=== PATIENT | female | born 1995 | race Caucasian/White ===

== ENCOUNTER 2016-12-05 19:56 | Emergency (ER) | payer MEDICAID ==
--- NOTE | 2016-12-05 20:06 | EDM.PDOC ---
[id number]: UTI Time Seen by Provider: 12/05/16 20:05 Source of Information: Reports: Patient - History of Present Illness INITIAL COMMENTS - FREE TEXT/NARRATIVE: 20-year-old female with dysuria for the past 2 days, increased urinary frequency and now has developed some lower back discomfort. No fevers or chills , no nausea or vomiting. Onset: Gradual (Over the past 3 days) Severity: Mild Improves with: Reports: None Associated Symptoms: Reports: Other (Back pain is very low, no flank pain). Denies: Chest Pain, Cough, Fever/Chills, Nausea/Vomiting, Shortness of Breath right flank/ suprapubic Pain Score (Numeric/FACES): 7 - Related Data Allergies Allergy/AdvReac Type Severity Reaction Status Date / Time amoxicillin [Amoxicillin] Allergy Hives Verified 12/05/16 20:08 Home Meds: Home Meds Albuterol Sulfate [Albuterol Sulfate HFA] 2 puff INH ASDIRECTED PRN 02/05/14 [ History] Amitriptyline [Elavil] 12.5 mg PO BEDTIME 12/05/16 [History] Phenazopyridine HCl [Azo Urinary Pain Relief] 97.5 mg PO TID PRN 12/05/16 [ History] Past Medical History HEENT History: Reports: Other (See Below) Other HEENT History: bilateral ear tubes Respiratory History: Reports: Asthma Musculoskeletal History: Reports: Fracture Neurological History: Reports: Migraines - Infectious Disease History Infectious Disease History: Reports: Chicken Pox Social & Family History - Tobacco Use Smoking Status *Q: Never Smoker Second Hand Smoke Exposure: No - Alcohol Use Days Per Week of Alcohol Use: 0 - Recreational Drug Use Recreational Drug Use: No ED ROS GENERAL - Review of Systems Review Of Systems: See Below Constitutional: Denies: Fever, Chills HEENT: Reports: No Symptoms Respiratory: Reports: No Symptoms GI/Abdominal: Denies: Abdominal Pain, Nausea, Vomiting : Reports: Dysuria, Frequency Musculoskeletal: Reports: Back Pain Skin: Reports: No Symptoms ED EXAM, RENAL/ - Physical Exam Exam: See Below Exam Limited By: No Limitations General Appearance: Alert, No Apparent Distress Respiratory/Chest: No Respiratory Distress GI/Abdominal: Non-Tender Back Exam: Other (Some discomfort with palpation just above the SI joint on the left side). No: CVA Tenderness (R), CVA Tenderness (L) Neurological: Alert, Oriented Psychiatric: Normal Affect, Normal Mood Skin Exam: Warm, Dry Course - Vital Signs Last Recorded V/S: Last Vital Signs Temp 99.0 F 12/05/16 20:16 Pulse 122 H 12/05/16 20:16 Resp 18 12/05/16 20:16 BP 155/92 H 12/05/16 20:16 Pulse Ox 95 12/05/16 20:16 - Orders/Labs/Meds Orders: Active Orders 24 hr Category Date Time Status CULTURE URINE [RM] Stat Lab 12/05/16 20:34 Received Labs: Laboratory Tests 12/05/16 Range/Units 20:06 Urine Color [place] Urine Appearance Clear Urine pH 5.0 (4.5-8.0) Ur Specific [place] 1.030 (1.008-1.030) Urine Protein 500 H (NEGATIVE) mg/dL Urine Glucose (UA) Normal (NEGATIVE) mg/dL Urine Ketones Negative (NEGATIVE) mg/dL Urine Occult Blood Large (NEGATIVE) Urine Nitrite Positive H (NEGATIVE) Urine Bilirubin Large (NEGATIVE) Urine Urobilinogen >=12 H (NORMAL) mg/dL Ur Leukocyte Esterase Negative (NEGATIVE) Urine RBC 30-40 H (0-5) Urine WBC 75-100 H (0-5) Ur Epithelial Cells Moderate Amorphous Sediment Not seen Urine Bacteria Many Urine Mucus Not seen Urine Other - Re-Assessments/Exams Free Text/Narrative Re-Assessment/Exam: 12/05/16 20:32 UA was obtained and is markedly positive, positive nitrite, WBCs and bacteria are present. A culture was initiated and the patient will be placed on Macrodantin twice a day for at least 7 days, can return if not improving satisfactorily. Departure - Departure Time of Disposition: 20:46 Disposition: Home, Self-Care 01 Condition: Good Clinical Impression: UTI, Urinary tract infectious disease - Discharge Information Instructions: Urinary Tract Infection, Adult, [id number] Referrals: PCP,None [Primary Care Provider] - Forms: ED Department Discharge Care Plan Goals: Take antibiotic twice daily for at least 7 days. Recheck in 2-3 days of not improving and return sooner if worsening such as fever, increased pain or nausea and vomiting. - My Orders Last 24 Hours: My Active Orders 12/05/16 20:34 CULTURE URINE [RM] Stat - Assessment/Plan Last 24 Hours: My Active Orders 12/05/16 20:34 CULTURE URINE [RM] Stat
[2016-12-05 20:18] VITALS: BP 155/92
== END 2016-12-05 20:46 | disposition home or self-care (01) ==
LOC: JP.ED 19:56
DX: N39.0 Urinary tract infection, site not specified (principal); Z88.1 Allergy status to other antibiotic agents; Z79.899 Other long term (current) drug therapy
CPT/HCPCS: 81001; 87086; 87186; 99284

== ENCOUNTER 2017-06-09 22:00 | Emergency (ER) | payer MEDICAID ==
[2017-06-09 22:14] VITALS: BP 126/69
[2017-06-09] MEDS ORDERED: Acetaminophen 500 MG Tab PO ONE (22:30)
--- NOTE | 2017-06-09 22:32 | EDM.PDOC ---
ED HPI GENERAL MEDICAL PROBLEM - General Chief Complaint: Respiratory Problem Stated Complaint: COLD Time Seen by Provider: 06/09/17 22:15 Source of Information: Reports: Patient History Limitations: Reports: No Limitations - History of Present Illness INITIAL COMMENTS - FREE TEXT/NARRATIVE: pt has a high temp and has a tachycardia. She has been sick for the past 2 days. She is coughing. 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: Musculoskeletal History: Reports: Fracture Neurological History: Reports: Migraines Hematologic History: Reports: None Immunologic History: Reports: None - Infectious Disease History Infectious Disease History: Reports: Chicken Pox - Past Surgical History Female Surgical History: Reports: Section Musculoskeletal Surgical History: Reports: Other (See Below) Other Musculoskeletal Surgeries/Procedures:: right elbow surgery Social & Family History - Tobacco Use Smoking Status *Q: Never Smoker Second Hand Smoke Exposure: No - Caffeine Use Caffeine Use: Reports: None - Alcohol Use Days Per Week of Alcohol Use: 0 - Recreational Drug Use Recreational Drug Use: No ED ROS GENERAL - Review of Systems Review Of Systems: See Below Constitutional: Reports: Fever, Chills, Malaise, Diaphoresis HEENT: Reports: Throat Pain, Throat Swelling Respiratory: Reports: Cough, Other ( cough raising yellow sputum) Cardiovascular: Reports: No Symptoms Endocrine: Reports: No Symptoms GI/Abdominal: Reports: No Symptoms : Reports: No Symptoms Musculoskeletal: Reports: No Symptoms Skin: Reports: Other (pt has a rash on her chest. She is vert flushed on the cheeks. ) ED EXAM, GENERAL - Physical Exam Exam: See Below Free Text/Narrative:: pt arrived with a fever of 101. She took her last tylenol about 4 pm. She has a sore throat and a cough. Exam Limited By: No Limitations General Appearance: Alert, Anxious, Moderate Distress Ears: Normal TMs Nose: Normal Inspection Throat/Mouth: Other ( throat is red with exudate. ) Neck: Normal Inspection Respiratory/Chest: No Respiratory Distress, Rhonchi Cardiovascular: Regular Rate, Rhythm, Tachycardia GI/Abdominal: Soft, Non-Tender (Female) Exam: Deferred Back Exam: Normal Inspection Extremities: Normal Inspection Psychiatric: Normal Affect Skin Exam: Other ( there is a red rah on her ches. ) Course - Vital Signs Last Recorded V/S: Last Vital Signs Temp 38.4 C H 06/09/17 23:09 Pulse 117 H 06/09/17 22:23 Resp 18 06/09/17 22:23 BP 126/69 06/09/17 22:23 Pulse Ox 96 06/09/17 22:23 - Orders/Labs/Meds Orders: Active Orders 24 hr Category Date Time Status Chest 2V [CR] Stat Exams 06/09/17 22:38 Taken Labs: Laboratory Tests 06/09/17 06/09/17 Range/Units 22:29 22:39 WBC 12.6 H (4.5-11.0) K/uL RBC 4.61 (3.30-5.50) M/uL Hgb 12.4 (12.0-15.0) g/dL Hct 36.3 (36.0-48.0) % MCV 79 L (80-98) fL MCH 27 (27-31) pg MCHC 34 (32-36) % Plt Count 199 (150-400) K/uL Neut % (Auto) 78 H (36-66) % Lymph % (Auto) 14 L (24-44) % [place] % (Auto) 7 H (2-6) % Eos % (Auto) 1 L (2-4) % Baso % (Auto) 0 (0-1) % Urine HCG, Qual Negative Meds: Medications Discontinued Medications Generic Name Dose Route Start Last Admin Trade Name Freq PRN Reason Stop Dose Admin Acetaminophen 1,000 mg 06/09/17 22:30 06/09/17 22:36 Tylenol Extra Strength PO 06/09/17 22:31 1,000 mg ONETIME ONE Administration Ceftriaxone Sodium 1 gm/ 0 gm 06/09/17 23:13 Lidocaine HCl 2.1 ml IM 06/09/17 23:14 ONETIME ONE - Re-Assessments/Exams Free Text/Narrative Re-Assessment/Exam: 06/09/17 23:10 wbc is 12,000. Her strept is positive. chest xray does not reveal a infiltrate. Departure - Departure Time of Disposition: 23:11 Disposition: Home, Self-Care 01 Condition: Fair Clinical Impression: Streptococcal pharyngitis - Discharge Information Referrals: PCP,None [Primary Care Provider] - Forms: ED Department Discharge Care Plan Goals: push fluids, tylenol and motrin alternating for fever. and body aches. Cool mist humidifier, zithromax 250 daily for 8 days robitussin ac 2 tsp q6h prn for cough. - My Orders Last 24 Hours: My Active Orders 06/09/17 22:38 Chest 2V [CR] Stat - Assessment/Plan Last 24 Hours: My Active Orders 06/09/17 22:38 Chest 2V [CR] Stat
[2017-06-09] MEDS ORDERED: cefTRIAXone 1 GM, Lidocaine 1% 2.1 ML IM ONE ×2 (23:13)
--- NOTE | 2017-06-11 10:05 | CR ---
Chest 2V HISTORY: Shortness of breath, cough COMPARISON: 05/18/2008 FINDINGS: Cardiac size is normal. No focal infiltrates or effusions. No pneumothorax. Impression: Negative chest.
== END 2017-06-09 23:41 | disposition home or self-care (01) ==
LOC: JP.ED 22:00
DX: J02.0 Streptococcal pharyngitis (principal); Z88.1 Allergy status to other antibiotic agents
CPT/HCPCS: 36415; 71046; 81025; 85025; 87430; 87804; 96372; 99284; A9270; J0696

== ENCOUNTER 2018-09-26 01:05 | Inpatient (IN) | payer MEDICAID ==
[2018-09-26] MEDS ORDERED: Sodium Chloride 0.9% 10 ML Syringe FLUSH PRN (01:56)
[2018-09-26] MEDS ORDERED: fentaNYL 100 MCG/2 ML SDV IVPUSH ONE ×3 (01:59→05:24)
[2018-09-26] MEDS ORDERED: Ondansetron 4 MG/2 ML SDV IVPUSH ONE (01:59)
[2018-09-26] MEDS ORDERED: Lactated Ringers 1,000 ML IV SCH (02:00)
--- NOTE | 2018-09-26 02:00 | EDM.PDOC ---
ED HPI GENERAL MEDICAL PROBLEM - General Chief Complaint: Abdominal Pain Stated Complaint: ABD PAIN Time Seen by Provider: 09/26/18 01:52 Source of Information: Reports: Patient, RN Notes Reviewed History Limitations: Reports: No Limitations - History of Present Illness INITIAL COMMENTS - FREE TEXT/NARRATIVE: 22-year-old female presents to the emergency department day complaint of abdominal pain, she states the pain came on suddenly 8:00 last night she is very nauseated it is constant nature no shortness of breath chest pain no fevers she states she is not passing any gas no difficulties with urination and she has had a in the past umbilical area Pain Score (Numeric/FACES): 8 - Related Data Allergies Allergy/AdvReac Type Severity Reaction Status Date / Time amoxicillin [Amoxicillin] Allergy Hives Verified 09/26/18 02:11 Home Meds: Home Meds medroxyPROGESTERone Acetate [Depo-Provera] 150 mg IM ASDIRECTED 09/26/18 [ History] Past Medical History HEENT History: Reports: Other (See Below) Other HEENT History: bilateral ear tubes, hx of perforation Respiratory History: Reports: Asthma, Pneumonia, Recurrent [employer]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: Reports: 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 Neurological History: Reports: Migraines Immunologic History: Reports: None - Infectious Disease History Infectious Disease History: Reports: Chicken Pox - Past Surgical History Female Surgical History: Reports: Section Musculoskeletal Surgical History: Reports: Other (See Below) Other Musculoskeletal Surgeries/Procedures:: right elbow surgery Social & Family History - Caffeine Use Caffeine Use: Reports: None ED ROS GENERAL - Review of Systems Review Of Systems: See Below Constitutional: Denies: Fever, Chills HEENT: Reports: No Symptoms Respiratory: Reports: No Symptoms Cardiovascular: Reports: No Symptoms GI/Abdominal: Reports: Abdominal Pain, Nausea. Denies: Flatus : Reports: No Symptoms Musculoskeletal: Reports: No Symptoms Skin: Reports: No Symptoms Neurological: Reports: No Symptoms ED EXAM, GI/ABD - Physical Exam Exam: See Below Exam Limited By: No Limitations General Appearance: Alert, WD/WN, No Apparent Distress Respiratory/Chest: No Respiratory Distress, Lungs Clear, Normal Breath Sounds, No Accessory Muscle Use, Chest Non-Tender Cardiovascular: Regular Rate, Rhythm, No Murmur GI/Abdominal Exam: Soft, Guarding, Tender Back Exam: No: CVA Tenderness (R), CVA Tenderness (L) Extremities: Non-Tender, No Pedal Edema Course - Vital Signs Last Recorded V/S: Last Vital Signs Temp 96.6 F 09/26/18 04:01 Pulse 79 09/26/18 04:01 Resp 15 09/26/18 04:01 BP 142/79 H 09/26/18 04:01 Pulse Ox 100 09/26/18 04:01 - Orders/Labs/Meds Orders: Active Orders 24 hr Category Date Time Status Peripheral IV Care [RC] . DIRECTED Care 09/26/18 01:56 Active Lactated Ringers [Ringers, Lactated] 1,000 ml Med 09/26/18 02:00 Active IV ASDIRECTED Lactated Ringers [Ringers, Lactated] 1,000 ml Med 09/26/18 04:05 Ordered IV BOLUS Sodium Chloride 0.9% [Saline Flush] Med 09/26/18 01:56 Active 10 ml FLUSH ASDIRECTED PRN Peripheral IV Insertion Adult [OM.PC] Urgent Oth 09/26/18 01:56 Ordered Medication Orders Lactated Ringer's (Ringers, Lactated) 1,000 mls @ 999 mls/hr IV ASDIRECTED FATMATA Last Admin: 09/26/18 02:36 Dose: 999 mls/hr Lactated Ringer's (Ringers, Lactated) 1,000 mls @ 500 mls/hr IV BOLUS ONE Stop: 09/26/18 06:04 Last Infusion: 09/26/18 05:00 Dose: 500 mls/hr Infusion: 09/26/18 04:26 Dose: 200 mls/hr Admin: 09/26/18 04:25 Dose: 500 mls/hr Sodium Chloride (Saline Flush) 10 ml FLUSH ASDIRECTED PRN PRN Reason: Keep Vein Open Last Admin: 09/26/18 02:30 Dose: 10 ml Labs: Laboratory Tests 09/26/18 09/26/18 09/26/18 Range/Units 02:09 02:09 02:09 WBC 10.0 (4.5-11.0) K/uL RBC 4.84 (3.30-5.50) M/uL Hgb 13.0 (12.0-15.0) g/dL Hct 38.9 (36.0-48.0) % MCV 80 (80-98) fL MCH 27 (27-31) pg MCHC 33 (32-36) % Plt Count 260 (150-400) K/uL Neut % (Auto) 68 H (36-66) % Lymph % (Auto) 21 L (24-44) % [place] % (Auto) 8 H (2-6) % Eos % (Auto) 2 (2-4) % Baso % (Auto) 0 (0-1) % Sodium 141 (140-148) mmol/L Potassium 3.7 (3.6-5.2) mmol/L Chloride 105 (100-108) mmol/L Carbon Dioxide 25 (21-32) mmol/L Anion Gap 11.0 (5.0-14.0) mmol/L BUN 13 (7-18) mg/dL Creatinine 1.0 D (0.6-1.0) mg/dL Est Cr Clr Drug Dosing 76.20 mL/min Estimated GFR (MDRD) > 60 (>60) Glucose 118 H (74-106) mg/dL Lactic Acid 1.3 (0.4-2.0) mmol/L Calcium 8.5 (8.5-10.1) mg/dL Total Bilirubin 0.2 (0.2-1.0) mg/dL AST 19 (15-37) U/L ALT 31 (12-78) U/L Alkaline Phosphatase 66 (46-116) U/L Total Protein 7.0 (6.4-8.2) g/dL Albumin 3.2 L (3.4-5.0) g/dL Globulin 3.8 H (2.3-3.5) g/dL Albumin/Globulin Ratio 0.8 L (1.2-2.2) Lipase 103 (73-393) U/L Urine Color Urine Appearance Urine pH (4.5-8.0) Ur Specific [place] (1.008-1.030) Urine Protein (NEGATIVE) mg/dL Urine Glucose (UA) (NEGATIVE) mg/dL Urine Ketones (NEGATIVE) mg/dL Urine Occult Blood (NEGATIVE) Urine Nitrite (NEGATIVE) Urine Bilirubin (NEGATIVE) Urine Urobilinogen (NORMAL) mg/dL Ur Leukocyte Esterase (NEGATIVE) Urine RBC (0-5) Urine WBC (0-5) Ur Epithelial Cells Amorphous Sediment Urine Bacteria Urine Mucus Urine HCG, Qual 09/26/18 09/26/18 Range/Units 02:17 02:17 WBC (4.5-11.0) K/uL RBC (3.30-5.50) M/uL Hgb (12.0-15.0) g/dL Hct (36.0-48.0) % MCV (80-98) fL MCH (27-31) pg MCHC (32-36) % Plt Count (150-400) K/uL Neut % (Auto) (36-66) % Lymph % (Auto) (24-44) % [place] % (Auto) (2-6) % Eos % (Auto) (2-4) % Baso % (Auto) (0-1) % Sodium (140-148) mmol/L Potassium (3.6-5.2) mmol/L Chloride (100-108) mmol/L Carbon Dioxide (21-32) mmol/L Anion Gap (5.0-14.0) mmol/L BUN (7-18) mg/dL Creatinine (0.6-1.0) mg/dL Est Cr Clr Drug Dosing mL/min Estimated GFR (MDRD) (>60) Glucose (74-106) mg/dL Lactic Acid (0.4-2.0) mmol/L Calcium (8.5-10.1) mg/dL Total Bilirubin (0.2-1.0) mg/dL AST (15-37) U/L ALT (12-78) U/L Alkaline Phosphatase (46-116) U/L Total Protein (6.4-8.2) g/dL Albumin (3.4-5.0) g/dL Globulin (2.3-3.5) g/dL Albumin/Globulin Ratio (1.2-2.2) Lipase (73-393) U/L Urine Color Yellow Urine Appearance Cloudy Urine pH 6.0 (4.5-8.0) Ur Specific [place] 1.020 (1.008-1.030) Urine Protein Negative (NEGATIVE) mg/dL Urine Glucose (UA) Normal (NEGATIVE) mg/dL Urine Ketones Negative (NEGATIVE) mg/dL Urine Occult Blood Moderate (NEGATIVE) Urine Nitrite Negative (NEGATIVE) Urine Bilirubin Negative (NEGATIVE) Urine Urobilinogen Normal (NORMAL) mg/dL Ur Leukocyte Esterase Large (NEGATIVE) Urine RBC 10-20 H (0-5) Urine WBC 30-40 H (0-5) Ur Epithelial Cells Moderate Amorphous Sediment Not seen Urine Bacteria Moderate Urine Mucus Moderate Urine HCG, Qual Negative Meds: Medications Generic Name Dose Route Start Last Admin Trade Name Freq PRN Reason Stop Dose Admin Lactated Ringer's 1,000 mls @ 999 mls/hr 09/26/18 02:00 09/26/18 02:36 Ringers, Lactated IV 999 mls/hr ASDIRECTED FATMATA Administration Lactated Ringer's 1,000 mls @ 500 mls/hr 09/26/18 04:05 09/26/18 05:00 Ringers, Lactated IV 09/26/18 06:04 500 mls/hr BOLUS ONE Infusion Sodium Chloride 10 ml 09/26/18 01:56 09/26/18 02:30 Saline Flush FLUSH 10 ml ASDIRECTED PRN Administration Keep Vein Open Discontinued Medications Generic Name Dose Route Start Last Admin Trade Name Freq PRN Reason Stop Dose Admin Fentanyl 50 mcg 09/26/18 01:59 09/26/18 02:30 Sublimaze IVPUSH 09/26/18 02:00 50 mcg ONETIME ONE Administration Fentanyl 50 mcg 09/26/18 03:51 09/26/18 03:58 Sublimaze IVPUSH 09/26/18 03:52 50 mcg ONETIME ONE Administration Sodium Chloride 85 mls @ 3.5 mls/sec 09/26/18 02:53 09/26/18 03:04 Normal Saline IV 09/26/18 02:54 3.5 mls/sec ASDIRECTED STA Administration Cefoxitin Sodium 1 gm/ Sodium 50 mls @ 100 mls/hr 09/26/18 03:59 09/26/18 04: 26 Chloride IV 09/26/18 04:28 100 mls/hr ONETIME ONE Administration Iopamidol 150 ml 09/26/18 02:53 09/26/18 03:04 Isovue-300 (61%) IV 09/26/18 02:54 150 ml . DIRECTED STA Administration Ondansetron HCl 4 mg 09/26/18 01:59 09/26/18 02:26 Zofran IVPUSH 09/26/18 02:00 4 mg ONETIME ONE Administration Departure - Departure Time of Disposition: 05:14 Disposition: Refer to Observation Condition: Good Clinical Impression: Appendicitis Qualifiers: Appendicitis type: acute appendicitis Acute appendicitis type: with localized peritonitis Appendicitis gangrene presence: unspecified whether gangrene present Appendicitis perforation presence: without perforation Appendicitis abscess presence: without abscess Qualified Code(s): K35.30 - Acute appendicitis with localized peritonitis, without perforation or gangrene - Discharge Information Referrals: PCP,None [Primary Care Provider] - Forms: ED Department Discharge - My Orders Last 24 Hours: My Active Orders 09/26/18 01:56 Peripheral IV Care [RC] . DIRECTED Sodium Chloride 0.9% [Saline Flush] 10 ml FLUSH ASDIRECTED PRN Peripheral IV Insertion Adult [OM.PC] Urgent 09/26/18 02:00 Lactated Ringers [Ringers, Lactated] 1,000 ml IV ASDIRECTED 09/26/18 04:05 Lactated Ringers [Ringers, Lactated] 1,000 ml IV BOLUS - Assessment/Plan Last 24 Hours: My Active Orders 09/26/18 01:56 Peripheral IV Care [RC] . DIRECTED Sodium Chloride 0.9% [Saline Flush] 10 ml FLUSH ASDIRECTED PRN Peripheral IV Insertion Adult [OM.PC] Urgent 09/26/18 02:00 Lactated Ringers [Ringers, Lactated] 1,000 ml IV ASDIRECTED 09/26/18 04:05 Lactated Ringers [Ringers, Lactated] 1,000 ml IV BOLUS Plan: Assessment Acuity = acute Site and laterality = acute appendicitis Etiology = unknown etiology Manifestations = abdominal pain, nausea Location of injury = Home Lab values = CBC and CMP unremarkable urinalysis does demonstrate tender 20 rbc' s consistent hematuria and 30-40 wbc's consists of pyuria cultures pending CT scan demonstrates an enlarged appendix is without periappendical inflammation equivocal to an acute appendicitis Plan Called discussed case with Dr. Ball at 5 AM he kindly agreed to come to the emergency department and evaluate the patient for further evaluation she's been given 1 g of Mefoxin thus far This note was dictated using [employer] voice recognition software please call with any questions on syntax or grammar.
[2018-09-26] MEDS: Iopamidol 612 MG/ML 150 ML Bottle IV STA (03:04)
--- NOTE | 2018-09-26 03:46 | CRLCT ---
INDICATION: Suprapubic pain TECHNIQUE: CT abdomen and pelvis acquired with 150 cc Isovue-300 intravenous contrast. COMPARISON: Abdomen and pelvis CT 03/10/2014 FINDINGS: Lower chest: Unremarkable. Liver: Unremarkable. Normal in size and attenuation. No masses. Gallbladder and bile ducts: Unremarkable. No stones or inflammation. No biliary dilatation. Pancreas: Unremarkable. No mass or inflammation. Spleen: Unremarkable. Normal in size. No masses. Adrenal glands: Unremarkable. No nodules. Kidneys: Unremarkable. No masses, stones, or hydronephrosis. GI tract: The stomach is unremarkable. There are no dilated loops of large or small intestine. The appendix is mildly dilated at its tip with fluid in its lumen measuring up to 9 millimeters (2, 111; 3, 50; 4, 73). No definite periappendiceal inflammation. Vasculature: Unremarkable. Pelvis: Unremarkable. Bones: Unremarkable for age. IMPRESSION: 1. Mild dilation of the appendiceal tip measures up to 9 millimeters although without definite periappendiceal inflammation. This is considered equivocal for acute appendicitis. 2. Remainder of the abdomen and pelvis are within normal limits. Please note that all CT scans at this facility use dose modulation, iterative reconstruction, and/or weight-based dosing when appropriate to reduce radiation dose to as low as reasonably achievable. Dictated by Jorge Patino MD @ Sep 26 2018 3:38AM Signed by Dr. Jorge Patino @ Sep 26 2018 3:45AM
[2018-09-26] MEDS ORDERED: Lactated Ringers 1,000 ML IV ONE (04:05)
[2018-09-26] MEDS ORDERED: Prochlorperazine 10 MG/2 ML SDV IVPUSH ONE (05:24)
[2018-09-26] MEDS: Dextrose 5%-Lactated Ringers 1,000 ML IV SCH ×3 (07:15→19:37)
[2018-09-26] MEDS ORDERED: Ondansetron 4 MG/2 ML SDV IVPUSH PRN ×2 (07:51→17:27)
[2018-09-26] MEDS: HYDROmorphone 1 MG/ML Syringe IV PRN ×3 (07:58→23:26)
[2018-09-26] MEDS ORDERED: Rocuronium 50 MG/5 ML Vial ONE (08:25)
[2018-09-26] MEDS ORDERED: Neostigmine Methylsulfate 1 MG/ML 5 ML Syringe ONE (08:25)
[2018-09-26] MEDS ORDERED: Glycopyrrolate 0.2 MG/ML 5 ML MDV ONE (08:25)
[2018-09-26] MEDS ORDERED: Dexamethasone 4 MG/ML SDV ONE (08:25)
[2018-09-26] MEDS ORDERED: fentaNYL 250 MCG/5 ML SDV ONE (08:25)
[2018-09-26] MEDS ORDERED: Succinylcholine 200 MG/10 ML MDV ONE (08:25)
[2018-09-26] MEDS ORDERED: Ondansetron 4 MG/2 ML SDV ONE (08:25)
[2018-09-26] MEDS ORDERED: Propofol 200 MG/20 ML SDV ONE (08:25)
[2018-09-26] MEDS ORDERED: Aztreonam/Dextrose-Water 1 GM in Premix Bag 1 BAG IV ONE (08:30)
[2018-09-26] MEDS ORDERED: Ropivacaine 55 ML, Dexamethasone 8 MG, EPINEPHrine 0.4 MG, Sodium Chloride 0.9% 22.6 ML NERVRT SCH ×4 (11:00)
[2018-09-26] MEDS ORDERED: Bupivacaine 0.5%/EPINEPHrine 1:200,000 50 ML MDV ONE ×2 (12:48→14:30)
[2018-09-26] MEDS: cefOXitin 2 GM in Sodium Chloride 0.9% 50 ML IV ONE ×3 (13:16→17:49)
[2018-09-26] MEDS ORDERED: Acetaminophen 500 MG Tab PO SCH (18:00)
[2018-09-26] MEDS: Ibuprofen 600 MG Tab PO SCH ×2 (18:39→23:29)
[2018-09-26] MEDS: Acetaminophen 500 MG Tab PO SCH ×2 (18:40→21:04)
[2018-09-26] MEDS: Pantoprazole 40 MG Vial IV SCH (18:40)
[2018-09-26] MEDS: cefOXitin 2 GM in Sodium Chloride 0.9% 50 ML IV SCH (22:36)
[2018-09-27] MEDS: cefOXitin 2 GM in Sodium Chloride 0.9% 50 ML IV SCH ×4 (04:06→21:35)
[2018-09-27] MEDS: Dextrose 5%-Lactated Ringers 1,000 ML IV SCH ×2 (04:09→14:29)
[2018-09-27] MEDS: HYDROmorphone 1 MG/ML Syringe IV PRN (04:22)
[2018-09-27] MEDS: Ibuprofen 600 MG Tab PO SCH ×4 (05:49→23:55)
[2018-09-27] MEDS: Acetaminophen 500 MG Tab PO SCH (05:49)
[2018-09-27] MEDS ORDERED: Ondansetron 4 MG Tab.DIS PO PRN (08:39)
[2018-09-27] MEDS: Acetaminophen/HYDROcodone 325-5 MG Tab PO PRN ×4 (09:46→22:35)
--- NOTE | 2018-09-27 11:25 | PCM.SURGPN ---
- General Info Date of Service: 09/27/18 Date of Surgery/Procedure: 09/26/18 POD#: 1 Functional Status: Reports: Pain Controlled, Ambulating, Incentive Spirometry - Review of Systems General: Reports: No Symptoms HEENT: Reports: No Symptoms Pulmonary: Reports: No Symptoms Cardiovascular: Reports: No Symptoms Gastrointestinal: Reports: Abdominal Pain, Other (sore throat) Genitourinary: Reports: No Symptoms Musculoskeletal: Reports: No Symptoms Skin: Reports: No Symptoms Neurological: Reports: No Symptoms Psychiatric: Reports: No Symptoms Systems Review Comment:: Barbara Recio is a 22 year old female who is postoperative day #1. She states she is doing well and her pain is well controlled. She has been ambulating. Vital signs are stable. Urine culture showed mixed gregoria. Dressings are dry and intact. She is healing well. - Patient Data Vitals - Most Recent: Last Vital Signs Temp 36.4 C 09/27/18 07:13 Pulse 82 09/27/18 07:13 Resp 16 09/27/18 07:13 BP 107/53 L 09/27/18 07:13 Pulse Ox 95 09/27/18 07:41 Weight - Most Recent: 107.955 kg I&O - Last 24 Hours: Intake & Output 09/26/18 09/27/18 09/27/18 22:59 06:59 14:59 Intake Total 20140 50 Output Total 1999 650 Balance 1815 -990 -600 Tommy Results Last 24 Hrs: Microbiology 09/26/18 05:17 Urine Culture - Preliminary Urine, Clean Catch MIXED GREGORIA DAY 1 Med Orders - Current: Current Medications Hydrocodone Bitart/Acetaminophen ([place] 325-5 Mg) 1 - 2 tab PO Q4H PRN PRN Reason: Pain Last Admin: 09/27/18 09:46 Dose: 2 tab Cefoxitin Sodium 2 gm/ Sodium (Chloride) 50 mls @ 100 mls/hr IV Q6H FATMATA Last Admin: 09/27/18 09:46 Dose: 100 mls/hr Dextrose/Lactated Ringer's (Dextrose 5%-Lactated Ringers) 1,000 mls @ 100 mls/ hr IV ASDIRECTED FATMATA Ibuprofen (Motrin) 600 mg PO Q6H FATMATA Last Admin: 09/27/18 11:17 Dose: 600 mg Ondansetron HCl (Zofran) 4 mg IVPUSH Q4H PRN PRN Reason: Nausea Last Admin: 09/26/18 23:26 Dose: 4 mg Ondansetron HCl (Zofran Odt) 4 mg PO Q4H PRN PRN Reason: Nausea/Vomiting Pantoprazole Sodium (Protonix Iv) 40 mg IV Q24H [facility] Last Admin: 09/26/18 18:40 Dose: 40 mg Discontinued Medications Acetaminophen (Tylenol Extra Strength) 1,000 mg PO QID [facility] Last Admin: 09/27/18 05:49 Dose: 1,000 mg Bupivacaine HCl/Epinephrine Bitart (Marcaine 0.5%/Epinephrine 1:200,000) Confirm Administered Dose 50 ml .ROUTE .STK-MED ONE Stop: 09/26/18 12:49 Last Admin: 09/26/18 16:17 Dose: 20 ml Bupivacaine HCl/Epinephrine Bitart (Marcaine 0.5%/Epinephrine 1:200,000) Confirm Administered Dose 50 ml .ROUTE .STK-MED ONE Stop: 09/26/18 14:31 Ropivacaine 55 ml/Dexamethasone 8 mg/Epinephrine HCl 0.4 mg/ Sodium Chloride 22.6 ml 0 ml NERVRT ASDIRECTED [facility] Last Admin: 09/26/18 15:58 Dose: 80 syringe Dexamethasone (Dexamethasone) Confirm Administered Dose 4 mg .ROUTE .STK-MED ONE Stop: 09/26/18 08:26 Fentanyl (Sublimaze) 50 mcg IVPUSH ONETIME ONE Stop: 09/26/18 02:00 Last Admin: 09/26/18 02:30 Dose: 50 mcg Fentanyl (Sublimaze) 50 mcg IVPUSH ONETIME ONE Stop: 09/26/18 03:52 Last Admin: 09/26/18 03:58 Dose: 50 mcg Fentanyl (Sublimaze) 100 mcg IVPUSH ONETIME ONE Stop: 09/26/18 05:25 Last Admin: 09/26/18 05:41 Dose: 100 mcg Fentanyl (Sublimaze) Confirm Administered Dose 250 mcg .ROUTE .STK-MED ONE Stop: 09/26/18 08:26 Glycopyrrolate (Robinul) Confirm Administered Dose 1 mg .ROUTE .STK-MED ONE Stop: 09/26/18 08:26 Hydromorphone HCl (Dilaudid) 1 mg IV Q2H PRN PRN Reason: Pain Last Admin: 09/27/18 04:22 Dose: 1 mg Lactated Ringer's (Ringers, Lactated) 1,000 mls @ 999 mls/hr IV ASDIRECTED FATMATA Last Admin: 09/26/18 02:36 Dose: 999 mls/hr Sodium Chloride (Normal Saline) 85 mls @ 3.5 mls/sec IV ASDIRECTED STA Stop: 09/26/18 02:54 Last Admin: 09/26/18 03:04 Dose: 3.5 mls/sec Cefoxitin Sodium 1 gm/ Sodium (Chloride) 50 mls @ 100 mls/hr IV ONETIME ONE Stop: 09/26/18 04:28 Last Admin: 09/26/18 04:26 Dose: 100 mls/hr Lactated Ringer's (Ringers, Lactated) 1,000 mls @ 500 mls/hr IV BOLUS ONE Stop: 09/26/18 06:04 Last Infusion: 09/26/18 05:00 Dose: 500 mls/hr Dextrose/Lactated Ringer's (Dextrose 5%-Lactated Ringers) 1,000 mls @ 125 mls/ hr IV ASDIRECTED [facility] Last Admin: 09/26/18 15:18 Dose: 125 mls/hr Aztreonam/Dextrose 1 gm/ (Premix) 50 mls @ 100 mls/hr IV ONETIME ONE Stop: 09/26/18 08:59 Last Admin: 09/26/18 08:55 Dose: 100 mls/hr Cefoxitin Sodium 2 gm/ Sodium (Chloride) 50 mls @ 100 mls/hr IV ONCALL ONE Stop: 09/26/18 11:29 Last Admin: 09/26/18 17:49 Dose: Not Given Dextrose/Lactated Ringer's (Dextrose 5%-Lactated Ringers) 1,000 mls @ 150 mls/ hr IV ASDIRECTED [facility] Last Admin: 09/27/18 04:09 Dose: 150 mls/hr Iopamidol (Isovue-300 (61%)) 150 ml IV . DIRECTED STA Stop: 09/26/18 02:54 Last Admin: 09/26/18 03:04 Dose: 150 ml Neostigmine Methylsulfate (Neostigmine) Confirm Administered Dose 5 mg .ROUTE .STK-MED ONE Stop: 09/26/18 08:26 Ondansetron HCl (Zofran) 4 mg IVPUSH ONETIME ONE Stop: 09/26/18 02:00 Last Admin: 09/26/18 02:26 Dose: 4 mg Ondansetron HCl (Zofran) 4 mg IVPUSH Q4H PRN PRN Reason: Nausea/Vomiting Last Admin: 09/26/18 13:15 Dose: 4 mg Ondansetron HCl (Zofran) Confirm Administered Dose 4 mg .ROUTE .STK-MED ONE Stop: 09/26/18 08:26 Prochlorperazine Edisylate (Compazine) 5 mg IVPUSH ONETIME ONE Stop: 09/26/18 05:25 Last Admin: 09/26/18 05:38 Dose: 5 mg Propofol (Diprivan 20 Ml) Confirm Administered Dose 200 mg .ROUTE .STK-MED ONE Stop: 09/26/18 08:26 Rocuronium [place] (Zemuron) Confirm Administered Dose 50 mg .ROUTE .STK-MED ONE Stop: 09/26/18 08:26 Sodium Chloride (Saline Flush) 10 ml FLUSH ASDIRECTED PRN PRN Reason: Keep Vein Open Last Admin: 09/26/18 02:30 Dose: 10 ml Succinylcholine Chloride (Quelicin) Confirm Administered Dose 200 mg .ROUTE .STK -MED ONE Stop: 09/26/18 08:26 - Exam Wound/Incisions: Healing Well, Dressing Dry and Intact, No Drainage General: Alert, Oriented HEENT: Pupils Equal Neck: Supple Lungs: Clear to Auscultation, Normal Respiratory Effort Cardiovascular: Regular Rate, Regular Rhythm GI/Abdominal Exam: No Distention Extremities: Normal Inspection Skin: Warm, Dry Neurological: No New Focal Deficit Psy/Mental Status: Alert, Normal Affect - Problem List Review Problem List Initiated/Reviewed/Updated: Yes - My Orders Last 24 Hours: Active Orders 24 hr Category Date Time Status Ambulate [RC] ASDIRECTED Care 09/26/18 17:25 Active Pina Catheter Insertion [Insert Urinary Catheter] [OM. Care 09/26/18 17:30 Ordered PC] Q24H Head of Bed Elevation [RC] CONTINUOUS Care 09/26/18 17:25 Active Intake and Output [RC] QSHIFT Care 09/26/18 17:27 Active May Shower [RC] ASDIRECTED Care 09/27/18 08:48 Active Pneumonia Education [RC] UPON Care 09/26/18 17:25 Active RT Incentive Spirometry [RC] .PRN Care 09/26/18 17:25 Active Turn, Cough, Deep Breathe [RC] Q1HWA Care 09/26/18 17:25 Active Up to Chair [RC] TIDMEALS Care 09/26/18 17:25 Active Respiratory Care Assess and Treatment [CONS] Routine Cons 09/26/18 17:25 Active Full Liquid Diet [DIET] Diet 09/27/18 Breakfast Ordered Acetaminophen/HYDROcodone [[place] 325-5 MG] Med 09/27/18 10:00 Active 1 - 2 tab PO Q4H PRN Dextrose 5%-Lactated Ringers 1,000 ml Med 09/27/18 08:37 Active IV ASDIRECTED Ibuprofen [Motrin] Med 09/26/18 18:00 Active 600 mg PO Q6H Ondansetron [Zofran ODT] Med 09/27/18 08:39 Active 4 mg PO Q4H PRN Ondansetron [Zofran] Med 09/26/18 17:27 Active 4 mg IVPUSH Q4H PRN Pantoprazole [ProTONIX IV] Med 09/26/18 18:00 Active 40 mg IV Q24H cefOXitin [Mefoxin] 2 gm Med 09/26/18 22:00 Active Sodium Chloride 0.9% [Normal Saline] 50 ml IV Q6H Abdominal Binder [OM.PC] Routine Oth 09/26/18 17:26 Ordered Oral Care [OM.PC] BID Oth 09/26/18 17:30 Ordered Oral Care [OM.PC] BID Oth 09/27/18 17:30 Ordered SCD [Sequential Compression Device] [OM.PC] Routine Oth 09/26/18 17:25 Ordered Medication Orders Hydrocodone Bitart/Acetaminophen ([place] 325-5 Mg) 1 - 2 tab PO Q4H PRN PRN Reason: Pain Last Admin: 09/27/18 09:46 Dose: 2 tab Cefoxitin Sodium 2 gm/ Sodium (Chloride) 50 mls @ 100 mls/hr IV Q6H [facility] Last Admin: 09/27/18 09:46 Dose: 100 mls/hr Admin: 09/27/18 04:06 Dose: 100 mls/hr Admin: 09/26/18 22:36 Dose: 100 mls/hr Dextrose/Lactated Ringer's (Dextrose 5%-Lactated Ringers) 1,000 mls @ 100 mls/ hr IV ASDIRECTED [facility] Ibuprofen (Motrin) 600 mg PO Q6H [facility] Last Admin: 09/27/18 11:17 Dose: 600 mg Admin: 09/27/18 05:49 Dose: 600 mg Admin: 09/26/18 23:29 Dose: 600 mg Admin: 09/26/18 18:39 Dose: 600 mg Ondansetron HCl (Zofran) 4 mg IVPUSH Q4H PRN PRN Reason: Nausea Last Admin: 09/26/18 23:26 Dose: 4 mg Ondansetron HCl (Zofran Odt) 4 mg PO Q4H PRN PRN Reason: Nausea/Vomiting Pantoprazole Sodium (Protonix Iv) 40 mg IV Q24H [facility] Last Admin: 09/26/18 18:40 Dose: 40 mg - Assessment Assessment (Free Text/Narrative):: Acute Appendicitis Laparoscopic Appendectomy Procedure preformed on 09/26/18, surgeon Benton Ball MD - Plan Plan (Free Text/Narrative):: 1. Initiate full liquid diet 2. Initiate [place] 325-5 MG, 1-2 tablets PO, every 4 hours or as needed 3. Will recheck in the AM or PRN
[2018-09-27] MEDS: Pantoprazole 40 MG Vial IV SCH (17:05)
[2018-09-28] MEDS: Dextrose 5%-Lactated Ringers 1,000 ML IV SCH (02:05)
[2018-09-28] MEDS: cefOXitin 2 GM in Sodium Chloride 0.9% 50 ML IV SCH (03:01)
[2018-09-28] MEDS: Acetaminophen/HYDROcodone 325-5 MG Tab PO PRN ×2 (03:53→08:20)
[2018-09-28] MEDS: Ibuprofen 600 MG Tab PO SCH (05:19)
[2018-09-28] MEDS ORDERED: Magnesium Hydroxide 400 MG/5 ML Susp 30 ML Cup PO PRN (07:52)
[2018-09-28 08:10] VITALS: BP 114/62
--- NOTE | 2018-09-29 15:49 | OR ---
DATE OF PROCEDURE: 09/26/2018 PREOPERATIVE DIAGNOSIS: Acute appendicitis. POSTOPERATIVE DIAGNOSIS: Acute appendicitis. OPERATIVE PROCEDURE: Laparoscopic appendectomy (32420). ANESTHESIA: General. TOLL GATE KEEPER: JOCE Lora. INDICATION FOR PROCEDURE: A 22-year-old presenting with symptoms suggestive of appendicitis and CT confirmed a distended appendiceal tip. Plan is to proceed with diagnostic laparoscopy with appendectomy and other procedures as indicated. Potential risks including bleeding, infection, and leaks from various GI tract staple lines were reviewed, and the patient wishes to proceed. DETAILS OF PROCEDURE: The patient was taken to the operating room. After general endotracheal anesthesia was induced, a Pina catheter was inserted and the abdomen was prepped and draped. Three fingerbreadths superior to the left side of the umbilicus, a transverse incision was made and the peritoneal cavity entered under direct vision with an Optiview trocar inflated to 15 mmHg pressure of CO2. Laparoscope was then reinserted. No underlying trocar insertion site injuries were seen. Following this, a 12 mm trocar was placed in the right upper quadrant and left lower quadrant and the lower abdomen was examined. The appendix was easily visualized and the distal one-third visibly distended and edematous consistent with appendicitis at that level. The mesoappendix was then divided with Harmonic scalpel down to the level of the junction of the appendix and the cecum, and the appendix was then divided off with a WILL rea load flush with the cecum and delivered through the left lower quadrant trocar site. No perforation or abscess was noted associated with this appendicitis. The staple line appeared to be intact with no bleeding and otherwise no evident problems were noted. At this point, a drain was felt not to be necessary. Bilateral transversus abdominis plane blocks were then placed and the trocars removed. The peritoneal cavity was then deflated. The fascia of the 12 mm trocar sites was closed with 0 Vicryl stitch and skin with 4-0 Vicryl skin stitch. Dressing was applied. The patient was taken to the recovery room in satisfactory condition. There were no evident complications. Benton Ball MD /[id number]
--- NOTE | 2018-09-29 17:34 | DISCH ---
FINAL DIAGNOSIS: Acute appendicitis. SECONDARY DIAGNOSIS: Obesity. OPERATIVE PROCEDURE: Laparoscopic appendectomy that was done on 09/26/2018. SUMMARY: This is a 22-year-old presenting with clinical picture suggestive of acute appendicitis. CT scan showed an enlarged and inflamed appendix at its tip. The patient was admitted with IV antibiotics and subsequently underwent an otherwise fairly straightforward laparoscopic appendectomy. The gross appearance of the distal appendix was consistent with appendicitis. Postoperatively, the patient has done well. She is tolerating oral pain medication. This was not at all perforated, so at this point, no further antibiotics will be needed. She will be discharged home on a regular diet and [place] 5/325 one to two tabs q.4 hours p.r.n. pain, #40. She was instructed she can take ibuprofen 600 mg q.i.d. as well. We will also send her home with 2 doses of milk of magnesia to stimulate bowels. She will follow up with Karla Bella at [facility] on 10/04/2018 at 10 a.m.
== END 2018-09-28 09:45 | disposition home or self-care (01) | DRG 225 ==
LOC: JP.ED 01:05 → JP.2SS 05:58
PROVIDERS: ADMIT Surgery; ATTEND Surgery
PROC: 0DTJ4ZZ Resection of Appendix, Percutaneous Endoscopic Approach (ICD-10-PCS; principal; 2018-09-26)
DX: K35.80 Unspecified acute appendicitis (principal); Z88.1 Allergy status to other antibiotic agents; Z87.01 Personal history of pneumonia (recurrent)
CPT/HCPCS: 36415; 51702; 74177; 80053; 81001; 81025; 83605; 83690; 85025; 87086; 88302; 94762; 96361; 96365; 96375; 96376; 99285-25; A9270-GY; C9113; J0171; J0330; J0694; J0780; J1100; J1170; J2405; J2704; J2710; J2795; J3010; J3490; J7030; J7042; J7050; J7120

== ENCOUNTER 2018-12-04 14:02 | Emergency (ER) | payer MEDICAID ==
[2018-12-04 14:13] VITALS: BP 126/81; PULSE 107
[2018-12-04] MEDS ORDERED: Sodium Chloride 0.9% 10 ML Syringe FLUSH PRN (14:21)
[2018-12-04] MEDS ORDERED: fentaNYL 100 MCG/2 ML SDV IVPUSH ONE (14:22)
[2018-12-04] MEDS ORDERED: Ondansetron 4 MG/2 ML SDV IVPUSH ONE (14:22)
--- NOTE | 2018-12-04 14:24 | EDM.PDOC ---
ED HPI GENERAL MEDICAL PROBLEM - General Chief Complaint: Abdominal Pain Stated Complaint: LEFT SIDE STOMACH Time Seen by Provider: 12/04/18 14:05 Source of Information: Reports: Patient, Family, RN Notes Reviewed History Limitations: Reports: No Limitations - History of Present Illness INITIAL COMMENTS - FREE TEXT/NARRATIVE: 22-year-old female presents emergency department today with complaint of left upper quadrant pain, she states the pain started about 2 hours ago after she had eaten lunch, she describes the pain is quite intense. Past surgical history does include appendectomy she feels nauseated no shortness of breath or chest pain - Related Data Allergies Allergy/AdvReac Type Severity Reaction Status Date / Time amoxicillin [Amoxicillin] Allergy Hives Verified 12/04/18 14:14 Home Meds: Home Meds medroxyPROGESTERone Acetate [Depo-Provera] 150 mg IM ASDIRECTED 09/26/18 [ History] Amitriptyline [Elavil] 50 mg PO BEDTIME 12/04/18 [History] lamoTRIgine [Lamotrigine] 25 mg PO BEDTIME 12/04/18 [History] Past Medical History HEENT History: Reports: Other (See Below) Other HEENT History: bilateral ear tubes, hx of perforation Cardiovascular History: Reports: Heart Murmur Respiratory History: Reports: Asthma, Pneumonia, Recurrent HOME THE[employer] EXP[employer] History: Reports: Musculoskeletal History: Reports: Fracture Neurological History: Reports: Migraines Psychiatric History: Reports: Depression Immunologic History: Reports: None - Infectious Disease History Infectious Disease History: Reports: Chicken Pox - Past Surgical History GI Surgical History: Reports: None Musculoskeletal Surgical History: Reports: Other (See Below) Other Musculoskeletal Surgeries/Procedures:: right elbow surgery Social & Family History - Tobacco Use Smoking Status *Q: Never Smoker - Caffeine Use Caffeine Use: Reports: None - Recreational Drug Use Recreational Drug Use: No ED ROS GENERAL - Review of Systems Review Of Systems: See Below Constitutional: Reports: No Symptoms HEENT: Reports: No Symptoms Respiratory: Reports: No Symptoms Cardiovascular: Reports: No Symptoms GI/Abdominal: Reports: Abdominal Pain, Flatus, Nausea. Denies: Constipation, Diarrhea, Vomiting : Reports: No Symptoms ED EXAM, GI/ABD - Physical Exam Exam: See Below Exam Limited By: No Limitations General Appearance: Alert, WD/WN, No Apparent Distress Respiratory/Chest: No Respiratory Distress, Lungs Clear, Normal Breath Sounds, No Accessory Muscle Use, Chest Non-Tender Cardiovascular: Regular Rate, Rhythm, No Murmur GI/Abdominal Exam: Normal Bowel Sounds, Soft, Tender (Left upper quadrant) Course - Vital Signs Last Recorded V/S: Last Vital Signs Temp 99.4 F 12/04/18 14:16 Pulse 107 H 12/04/18 14:16 Resp 20 12/04/18 14:16 BP 126/81 12/04/18 14:16 Pulse Ox 95 12/04/18 14:16 - Orders/Labs/Meds Orders: Active Orders 24 hr Category Date Time Status Peripheral IV Care [RC] . DIRECTED Care 12/04/18 14:22 Active Lactated Ringers [Ringers, Lactated] 1,000 ml Med 12/04/18 14:30 Active IV ASDIRECTED Sodium Chloride 0.9% [Saline Flush] Med 12/04/18 14:21 Active 10 ml FLUSH ASDIRECTED PRN Peripheral IV Insertion Adult [OM.PC] Urgent Oth 12/04/18 14:21 Ordered Medication Orders Lactated Ringer's (Ringers, Lactated) 1,000 mls @ 999 mls/hr IV ASDIRECTED [facility]MATA Last Admin: 12/04/18 14:35 Dose: 999 mls/hr Sodium Chloride (Saline Flush) 10 ml FLUSH ASDIRECTED PRN PRN Reason: Keep Vein Open Last Admin: 12/04/18 14:35 Dose: 10 ml Labs: Laboratory Tests 12/04/18 12/04/18 12/04/18 Range/Units 14:30 14:30 14:30 WBC 10.8 (4.5-11.0) K/uL RBC 5.24 (3.30-5.50) M/uL Hgb 14.1 (12.0-15.0) g/dL Hct 42.2 (36.0-48.0) % MCV 81 (80-98) fL MCH 27 (27-31) pg MCHC 33 (32-36) % Plt Count 272 (150-400) K/uL Neut % (Auto) 73 H (36-66) % Lymph % (Auto) 16 L (24-44) % [place]oyah % (Auto) 8 H (2-6) % Eos % (Auto) 2 (2-4) % Baso % (Auto) 0 (0-1) % Sodium 140 (140-148) mmol/L Potassium 3.6 (3.6-5.2) mmol/L Chloride 105 (100-108) mmol/L Carbon Dioxide 27 (21-32) mmol/L Anion Gap 8.2 (5.0-14.0) mmol/L BUN 7 (7-18) mg/dL Creatinine 1.0 (0.6-1.0) mg/dL Est Cr Clr Drug Dosing 76.20 mL/min Estimated GFR (MDRD) > 60 (>60) Glucose 91 (74-106) mg/dL Lactic Acid 1.7 (0.4-2.0) mmol/L Calcium 8.8 (8.5-10.1) mg/dL Total Bilirubin 0.7 D (0.2-1.0) mg/dL AST 23 (15-37) U/L ALT 53 (12-78) U/L Alkaline Phosphatase 71 (46-116) U/L Total Protein 7.6 (6.4-8.2) g/dL Albumin 3.5 (3.4-5.0) g/dL Globulin 4.1 H (2.3-3.5) g/dL Albumin/Globulin Ratio 0.9 L (1.2-2.2) Lipase 84 (73-393) U/L Urine Color Urine Appearance Urine pH (4.5-8.0) Ur Specific C[place] (1.008-1.030) Urine Protein (NEGATIVE) mg/dL Urine Glucose (UA) (NEGATIVE) mg/dL Urine Ketones (NEGATIVE) mg/dL Urine Occult Blood (NEGATIVE) Urine Nitrite (NEGATIVE) Urine Bilirubin (NEGATIVE) Urine Urobilinogen (NORMAL) mg/dL Ur Leukocyte Esterase (NEGATIVE) Urine RBC (0-5) Urine WBC (0-5) Ur Epithelial Cells Amorphous Sediment Urine Bacteria Urine Mucus 12/04/18 Range/Units 15:29 WBC (4.5-11.0) K/uL RBC (3.30-5.50) M/uL Hgb (12.0-15.0) g/dL Hct (36.0-48.0) % MCV (80-98) fL MCH (27-31) pg MCHC (32-36) % Plt Count (150-400) K/uL Neut % (Auto) (36-66) % Lymph % (Auto) (24-44) % [place]oyah % (Auto) (2-6) % Eos % (Auto) (2-4) % Baso % (Auto) (0-1) % Sodium (140-148) mmol/L Potassium (3.6-5.2) mmol/L Chloride (100-108) mmol/L Carbon Dioxide (21-32) mmol/L Anion Gap (5.0-14.0) mmol/L BUN (7-18) mg/dL Creatinine (0.6-1.0) mg/dL Est Cr Clr Drug Dosing mL/min Estimated GFR (MDRD) (>60) Glucose (74-106) mg/dL Lactic Acid (0.4-2.0) mmol/L Calcium (8.5-10.1) mg/dL Total Bilirubin (0.2-1.0) mg/dL AST (15-37) U/L ALT (12-78) U/L Alkaline Phosphatase (46-116) U/L Total Protein (6.4-8.2) g/dL Albumin (3.4-5.0) g/dL Globulin (2.3-3.5) g/dL Albumin/Globulin Ratio (1.2-2.2) Lipase (73-393) U/L Urine Color Yellow Urine Appearance Cloudy Urine pH 5.0 (4.5-8.0) Ur Specific [place] 1.025 (1.008-1.030) Urine Protein Trace (NEGATIVE) mg/dL Urine Glucose (UA) Normal (NEGATIVE) mg/dL Urine Ketones Negative (NEGATIVE) mg/dL Urine Occult Blood Negative (NEGATIVE) Urine Nitrite Negative (NEGATIVE) Urine Bilirubin Small (NEGATIVE) Urine Urobilinogen Normal (NORMAL) mg/dL Ur Leukocyte Esterase Trace (NEGATIVE) Urine RBC 0-5 (0-5) Urine WBC 5-10 H (0-5) Ur Epithelial Cells Few Amorphous Sediment Not seen Urine Bacteria Moderate Urine Mucus Moderate Meds: Medications Generic Name Dose Route Start Last Admin Trade Name Freq PRN Reason Stop Dose Admin Lactated Ringer's 1,000 mls @ 999 mls/hr 12/04/18 14:30 12/04/18 14:35 Ringers, Lactated IV 999 mls/hr ASDIRECTED FATMATA Administration Sodium Chloride 10 ml 12/04/18 14:21 12/04/18 14:35 Saline Flush FLUSH 10 ml ASDIRECTED PRN Administration Keep Vein Open Discontinued Medications Generic Name Dose Route Start Last Admin Trade Name Zakia PRN Reason Stop Dose Admin Fentanyl 50 mcg 12/04/18 14:22 12/04/18 14:33 Sublimaze IVPUSH 12/04/18 14:23 50 mcg ONETIME ONE Administration Ketorolac Tromethamine 30 mg 12/04/18 16:30 12/04/18 16:38 Toradol IVPUSH 12/04/18 16:31 30 mg ONETIME ONE Administration Ondansetron HCl 4 mg 12/04/18 14:22 12/04/18 14:33 Zofran IVPUSH 12/04/18 14:23 4 mg ONETIME ONE Administration Simethicone 160 mg 12/04/18 16:30 12/04/18 16:38 Simethicone PO 12/04/18 16:31 160 mg ONETIME ONE Administration Departure - Departure Time of Disposition: 17:31 Disposition: Home, Self-Care 01 Condition: Fair Clinical Impression: Gas pain - Discharge Information Referrals: Eulalia Zepeda CNM [Primary Care Provider] - Forms: ED Department Discharge Additional Instructions: Continue to use simethicone As needed for abdominal pain, Please followup with your primary care provider in 3-5 days if not better, please call return to the emergency department with worsening of symptoms. - My Orders Last 24 Hours: My Active Orders 12/04/18 14:21 Sodium Chloride 0.9% [Saline Flush] 10 ml FLUSH ASDIRECTED PRN Peripheral IV Insertion Adult [OM.PC] Urgent 12/04/18 14:22 Peripheral IV Care [RC] . DIRECTED 12/04/18 14:30 Lactated Ringers [Ringers, Lactated] 1,000 ml IV ASDIRECTED - Assessment/Plan Last 24 Hours: My Active Orders 12/04/18 14:21 Sodium Chloride 0.9% [Saline Flush] 10 ml FLUSH ASDIRECTED PRN Peripheral IV Insertion Adult [OM.PC] Urgent 12/04/18 14:22 Peripheral IV Care [RC] . DIRECTED 12/04/18 14:30 Lactated Ringers [Ringers, Lactated] 1,000 ml IV ASDIRECTED Plan: Assessment Acuity = acute Site and laterality = gas pain Etiology = slow transit time Manifestations = abdominal pain] Location of injury = Home Lab values = CBC, CMP, UA unremarkable plain film the abdomen did show large amount of gas and the bowel as well as stomach] Plan Good improvement combination simethicone and Toradol, continue to simethicone as needed follow-up primary care 3-5 days if not better This note was dictated using [employer] voice recognition software please call with any questions on syntax or grammar.
[2018-12-04] MEDS ORDERED: Lactated Ringers 1,000 ML IV SCH (14:30)
--- NOTE | 2018-12-04 16:28 | CRLCR ---
Indication: Right upper quadrant pain Technique: Abdomen 1 view. Comparison: None. Findings: No dilated loops of large or small intestine. No abnormal calcifications. Osseous structures unremarkable. Impression: Unremarkable abdomen. Dictated by Jorge Patino MD @ Dec 04 2018 4:25PM Signed by Dr. Jorge Patino @ Dec 04 2018 4:26PM
[2018-12-04] MEDS ORDERED: Simethicone 80 MG Tab.Chew PO ONE (16:30)
[2018-12-04] MEDS ORDERED: Ketorolac 30 MG/ML SDV IVPUSH ONE (16:30)
== END 2018-12-04 17:58 | disposition home or self-care (01) ==
LOC: JP.ED 14:02
DX: R14.1 Gas pain (principal); F32.9 Major depressive disorder, single episode, unspecified; Z88.1 Allergy status to other antibiotic agents; Z79.899 Other long term (current) drug therapy
CPT/HCPCS: 36415; 74018; 80053; 81001; 83605; 83690; 85025; 96361; 96374; 96375; 99284; A9270; J1885; J2405; J3010; J7120; 99283

== ENCOUNTER 2020-01-04 20:03 | Emergency (ER) | payer MEDICAID ==
--- NOTE | 2020-01-04 20:37 | EDM.PDOC ---
ED HPI GENERAL MEDICAL PROBLEM - General Chief Complaint: Cardiovascular Problem Stated Complaint: CHEST PAIN Time Seen by Provider: 01/04/20 20:27 Source of Information: Reports: Patient, Significant Other History Limitations: Reports: No Limitations - History of Present Illness INITIAL COMMENTS - FREE TEXT/NARRATIVE: Fairly sudden onset of midsternal discomfort. She has a history of gastroesophageal reflux disease and did take several Tums with no result. Onset: Today Onset Date: 01/04/20 Onset Time: 16:00 Location: Reports: Chest Quality: Reports: Dull Chest Pain Score (Numeric/FACES): 6 - Related Data Allergies Allergy/AdvReac Type Severity Reaction Status Date / Time amoxicillin [Amoxicillin] Allergy Hives Verified 01/04/20 20:24 Home Meds: Home Meds Albuterol/Ipratropium [Combivent Respimat] 2 inh INH ASDIRECTED PRN 01/04/20 [History] Past Medical History HEENT History: Reports: Other (See Below) Other HEENT History: bilateral ear tubes, hx of perforation Cardiovascular History: Reports: Heart Murmur Other Cardiovascular History: couldn't hear it anymore after turned 12 Respiratory History: Reports: Asthma, Pneumonia, Recurrent WARRANTY MANAGER History: Reports: Musculoskeletal History: Reports: Fracture Neurological History: Reports: Concussion, Migraines Psychiatric History: Reports: Depression Immunologic History: Reports: None - Infectious Disease History Infectious Disease History: Reports: Chicken Pox - Past Surgical History HEENT Surgical History: Reports: Adenoidectomy, Tonsillectomy Other HEENT Surgeries/Procedures: wisdom teeth GI Surgical History: Reports: Appendectomy Female Surgical History: Reports: Section Musculoskeletal Surgical History: Reports: Other (See Below) Other Musculoskeletal Surgeries/Procedures:: right elbow surgery Social & Family History - Family History Cardiac: Reports: Other (See Below) Other Cardiac Family History: mother has been having heart issues lately - Tobacco Use Smoking Status *Q: Never Smoker - Caffeine Use Caffeine Use: Reports: None - Recreational Drug Use Recreational Drug Use: No ED ROS GENERAL - Review of Systems Review Of Systems: See Below Constitutional: Denies: Fever Respiratory: Denies: Shortness of Breath, Wheezing, Cough Cardiovascular: Reports: Chest Pain. Denies: Dyspnea on Exertion, Edema Endocrine: Denies: Fatigue GI/Abdominal: Denies: Abdominal Pain, Nausea, Vomiting ED EXAM, GENERAL - Physical Exam Exam: See Below Exam Limited By: No Limitations General Appearance: Alert, No Apparent Distress, Anxious, Obese Nose: Normal Inspection Throat/Mouth: Normal Inspection Head: Atraumatic, Normocephalic Neck: Normal Inspection, Non-Tender Respiratory/Chest: No Respiratory Distress, Lungs Clear Cardiovascular: Normal Peripheral Pulses, Regular Rate, Rhythm, No Edema GI/Abdominal: Soft, Non-Tender Extremities: Normal Inspection, Normal Range of Motion Neurological: Alert, Oriented Psychiatric: Normal Affect, Anxious EKG INTERPRETATION EKG Date: 01/04/20 Time: 20:20 Rhythm: NSR Rate (Beats/Min): 84 [place]: Normal P-Wave: Present ST-T: Normal Course - Vital Signs Text/Narrative:: initial diff Dx: [place], CAD, GERD, ANxiety. The patient's EKG and troponin are both unremarkable. The only risk factor the patient has for heart disease is obesity. Her HEART core is 1. She is at very low risk for major adverse coronary event in the next several weeks. We will treat her for gastroesophageal reflux with omeprazole. I have strongly recommended to her she follow-up with her primary care provider. Last Recorded V/S: Last Vital Signs Temp 36.4 C 01/04/20 20:31 Pulse 79 01/04/20 21:35 Resp 16 01/04/20 21:35 BP 107/65 01/04/20 21:37 Pulse Ox 98 01/04/20 21:35 - Orders/Labs/Meds Orders: Active Orders 24 hr Category Date Time Status Chest 2V [CR] Stat Exams 01/04/20 20:40 Taken Nitroglycerin [Nitrostat] Med 01/04/20 20:43 Active 0.4 mg SL Q5M PRN Sodium Chloride 0.9% [Normal Saline] 1,000 ml Med 01/04/20 20:45 Active IV ASDIRECTED Medication Orders Sodium Chloride (Normal Saline) 1,000 mls @ 500 mls/hr IV ASDIRECTED FATMATA Last Admin: 01/04/20 21:34 Dose: 500 mls/hr Documented by: HAY Nitroglycerin (Nitrostat) 0.4 mg SL Q5M PRN PRN Reason: Chest Pain Last Admin: 01/04/20 21:37 Dose: 0.4 mg Documented by: Admin: 01/04/20 20:59 Dose: 0.4 mg Documented by: HAY Labs: Laboratory Tests 01/04/20 01/04/20 01/04/20 Range/Units 20:40 20:56 20:56 WBC 8.9 (4.5-11.0) K/uL RBC 5.33 (3.30-5.50) M/uL Hgb 14.4 (12.0-15.0) g/dL Hct 43.2 (36.0-48.0) % MCV 81 (80-98) fL MCH 27 (27-31) pg MCHC 33 (32-36) % Plt Count 260 (150-400) K/uL PT (9.5-12.0) sec INR (0.80-1.20) Sodium (140-148) mmol/L Potassium (3.6-5.2) mmol/L Chloride (100-108) mmol/L Carbon Dioxide (21-32) mmol/L Anion Gap (5.0-14.0) mmol/L BUN (7-18) mg/dL Creatinine (0.6-1.0) mg/dL Est Cr Clr Drug Dosing mL/min Estimated GFR (MDRD) (>60) Glucose (74-106) mg/dL Lactic Acid (0.4-2.0) mmol/L Calcium (8.5-10.1) mg/dL Total Bilirubin (0.2-1.0) mg/dL AST (15-37) U/L ALT (12-78) U/L Alkaline Phosphatase (46-116) U/L Troponin I < 0.017 (0.000-0.056) ng/mL NT-Pro-B Natriuret Pep (5-125) pg/mL Total Protein (6.4-8.2) g/dL Albumin (3.4-5.0) g/dL Globulin (2.3-3.5) g/dL Albumin/Globulin Ratio (1.2-2.2) Urine Color Yellow (YELLOW) Urine Appearance Slightly cloudy A (CLEAR) Urine pH 7.0 (5.0-8.0) Ur Specific [place] 1.020 (1.008-1.030) Urine Protein Negative (NEGATIVE) mg/dL Urine Glucose (UA) Negative (NEGATIVE) mg/dL Urine Ketones Negative (NEGATIVE) mg/dL Urine Occult Blood Negative (NEGATIVE) Urine Nitrite Negative (NEGATIVE) Urine Bilirubin Negative (NEGATIVE) Urine Urobilinogen 0.2 (0.2-1.0) EU/dL Ur Leukocyte Esterase Small H (NEGATIVE) Urine RBC 0-5 (0-5) Urine WBC 10-20 H (0-5) Ur Epithelial Cells Moderate Amorphous Sediment Not seen Urine Bacteria Many Urine Mucus Few 01/04/20 01/04/20 01/04/20 Range/Units 20:56 20:56 20:56 WBC (4.5-11.0) K/uL RBC (3.30-5.50) M/uL Hgb (12.0-15.0) g/dL Hct (36.0-48.0) % MCV (80-98) fL MCH (27-31) pg MCHC (32-36) % Plt Count (150-400) K/uL PT 10.7 (9.5-12.0) sec INR 0.98 (0.80-1.20) Sodium 140 (140-148) mmol/L Potassium 3.9 (3.6-5.2) mmol/L Chloride 105 (100-108) mmol/L Carbon Dioxide 27 (21-32) mmol/L Anion Gap 8.5 (5.0-14.0) mmol/L BUN 9 (7-18) mg/dL Creatinine 0.9 (0.6-1.0) mg/dL Est Cr Clr Drug Dosing 83.23 mL/min Estimated GFR (MDRD) > 60 (>60) Glucose 96 (74-106) mg/dL Lactic Acid 1.0 (0.4-2.0) mmol/L Calcium 8.9 (8.5-10.1) mg/dL Total Bilirubin 0.4 (0.2-1.0) mg/dL AST 19 (15-37) U/L ALT 30 (12-78) U/L Alkaline Phosphatase 66 (46-116) U/L Troponin I (0.000-0.056) ng/mL NT-Pro-B Natriuret Pep 69 (5-125) pg/mL Total Protein 7.8 (6.4-8.2) g/dL Albumin 3.8 (3.4-5.0) g/dL Globulin 4.0 H (2.3-3.5) g/dL Albumin/Globulin Ratio 1.0 L (1.2-2.2) Urine Color (YELLOW) Urine Appearance (CLEAR) Urine pH (5.0-8.0) Ur Specific [place] (1.008-1.030) Urine Protein (NEGATIVE) mg/dL Urine Glucose (UA) (NEGATIVE) mg/dL Urine Ketones (NEGATIVE) mg/dL Urine Occult Blood (NEGATIVE) Urine Nitrite (NEGATIVE) Urine Bilirubin (NEGATIVE) Urine Urobilinogen (0.2-1.0) EU/dL Ur Leukocyte Esterase (NEGATIVE) Urine RBC (0-5) Urine WBC (0-5) Ur Epithelial Cells Amorphous Sediment Urine Bacteria Urine Mucus Meds: Medications Generic Name Dose Route Start Last Admin Trade Name Freq PRN Reason Stop Dose Admin Sodium Chloride 1,000 mls @ 500 mls/hr 01/04/20 20:45 01/04/20 21:34 Normal Saline IV 500 mls/hr ASDIRECTED FATMATA Administration Nitroglycerin 0.4 mg 01/04/20 20:43 01/04/20 21:37 Nitrostat SL 0.4 mg Q5M PRN Administration Chest Pain Discontinued Medications Generic Name Dose Route Start Last Admin Trade Name Freq PRN Reason Stop Dose Admin Aspirin 324 mg 01/04/20 20:42 01/04/20 20:58 Aspirin PO 01/04/20 20:43 324 mg ONETIME ONE Administration Departure - Departure Time of Disposition: 21:44 Disposition: Home, Self-Care 01 Clinical Impression: GERD (gastroesophageal reflux disease) Instructions: Heartburn, [id number] Referrals: Eulalia Zepeda CNM [Primary Care Provider] - Forms: ED Department Discharge Additional Instructions: Prescription is provided for antacid to take daily. Do call your primary care provider for follow-up from this emergency department visit. Sepsis Event Note (ED) - Evaluation Sepsis Screening Result: No Definite Risk - Focused Exam Vital Signs: Vital Signs Temp Pulse Resp BP BP Pulse Ox 01/04/20 21:37 107/65 01/04/20 21:35 79 16 107/65 98 01/04/20 20:59 139/82 01/04/20 20:31 36.4 C 73 20 139/82 96 01/04/20 20:24 36.4 C 73 20 139/82 96 - My Orders Last 24 Hours: My Active Orders 01/04/20 20:40 Chest 2V [CR] Stat 01/04/20 20:43 Nitroglycerin [Nitrostat] 0.4 mg SL Q5M PRN 01/04/20 20:45 Sodium Chloride 0.9% [Normal Saline] 1,000 ml IV ASDIRECTED - Assessment/Plan Last 24 Hours: My Active Orders 01/04/20 20:40 Chest 2V [CR] Stat 01/04/20 20:43 Nitroglycerin [Nitrostat] 0.4 mg SL Q5M PRN 01/04/20 20:45 Sodium Chloride 0.9% [Normal Saline] 1,000 ml IV ASDIRECTED
[2020-01-04] MEDS ORDERED: Aspirin 81 MG Tab.Chew PO ONE (20:42)
[2020-01-04] MEDS ORDERED: Sodium Chloride 0.9% 1,000 ML IV SCH (20:45)
[2020-01-04] MEDS: Nitroglycerin 0.4 MG Tab.SL SL PRN ×2 (20:59→21:37)
[2020-01-04 22:02] VITALS: BP 114/62; PULSE 71
[2020-01-04] MEDS ORDERED: Pantoprazole 40 MG Tab.CR PO SCH (22:30)
--- NOTE | 2020-01-05 09:55 | CR ---
CHEST: 2 view CLINICAL HISTORY:Chest pain COMPARISON:2018 FINDINGS: The heart size, pulmonary vascularity and hilar structures are normal. No infiltrate effusion or pneumothorax is seen. IMPRESSION: No acute cardiopulmonary process.
== END 2020-01-04 22:29 | disposition home or self-care (01) ==
LOC: JP.ED 20:03
DX: K21.9 Gastro-esophageal reflux disease without esophagitis (principal); J45.909 Unspecified asthma, uncomplicated; Z88.1 Allergy status to other antibiotic agents; Z90.49 Acquired absence of other specified parts of digestive tract; Z98.890 Other specified postprocedural states
CPT/HCPCS: 36415; 71046; 80053; 81001; 83605; 83880; 84484; 85027; 85610; 96360; 99285; A9270; J7030; 93010; 99283

== ENCOUNTER 2020-02-02 05:17 | Day surgery (SDC) | payer MEDICAID ==
[2020-02-02] MEDS ORDERED: Dextrose 5%-Lactated Ringers 1,000 ML IV SCH (06:00)
[2020-02-02] MEDS ORDERED: Propofol 200 MG/20 ML SDV ONE (07:09)
[2020-02-02] MEDS ORDERED: fentaNYL 100 MCG/2 ML SDV ONE (07:09)
[2020-02-02] MEDS ORDERED: Midazolam 1 MG/ML 2 ML SDV ONE (07:09)
[2020-02-02 09:21] VITALS: BP 116/69; PULSE 80
--- NOTE | 2020-02-10 16:26 | OR ---
DATE OF PROCEDURE: 01/02/2020 SURGEON: Benton Ball MD PREOPERATIVE DIAGNOSIS: Heartburn and epigastric discomfort. POSTOPERATIVE DIAGNOSES: 1. Gastroesophageal reflux disease with worsening long-term gastroparesis. 2. Very large gastric bezoar. OPERATIVE PROCEDURE: Esophagogastroduodenoscopy with biopsy of esophagogastric junction. ANESTHESIA: IV sedation. INDICATION FOR PROCEDURE: This is a 24-year-old presenting with recently ongoing epigastric pain along with heartburn. It has been ongoing medical management without significant improvement. The plan is to proceed with an upper GI endoscopy with biopsies as indicated. Potential risks including bleeding and perforation were discussed, and the patient wishes to proceed. DETAILS OF PROCEDURE: The patient was taken to the operating room and placed in a left lateral decubitus position. IV sedation was administered, after which the upper GI endoscope was passed orally through the length of the esophagus and into the stomach with retroflexion view of the fundus, thereafter through the pyloric channel and into the proximal duodenum. Findings included normal hypopharynx, larynx, upper esophageal sphincter, and esophageal body. At the EG junction, a small hiatal hernia was present. There was noted to be marked inflammation at the distal esophagus with no stricturing present. Upon entering the stomach, the patient had a very strikingly large gastric bezoar which almost the entire stomach. The scope was able to gradually pass around this through the pyloric channel and there was no obstruction at that level, and the visualized portions of the duodenum were otherwise unremarkable. The scope was then withdrawn and the biopsies obtained from esophagogastric junction were sent for histologic evaluation. Minimal bleeding from the biopsy sites was seen, and the procedure was then concluded. Looking back, the patient in 2013 had an upper endoscopy by Dr. Oliva and even at that time there was a bezoar present. The patient is a poor candidate for Osiris fundoplication because of the gastroparesis which is fairly obviously present in this case. We will see the patient back on Sunday to discuss treatment options. The first option would probably be proximal gastrectomy with Becca-en-Y reconstruction which would bypass the nonfunctioning stomach and also relieve her reflux symptoms apparently. This will be discussed with the patient and her on Sunday. Benton Ball MD /[id number]
== END 2020-02-02 10:00 | disposition home or self-care (01) ==
LOC: JP.SDS 05:17
PROVIDERS: ATTEND Surgery
DX: K21.0 Gastro-esophageal reflux disease with esophagitis (principal); K29.00 Acute gastritis without bleeding; K31.84 Gastroparesis; T18.2XXA Foreign body in stomach, initial encounter; K44.9 Diaphragmatic hernia without obstruction or gangrene; E66.9 Obesity, unspecified; F32.9 Major depressive disorder, single episode, unspecified; J45.909 Unspecified asthma, uncomplicated; Z68.41 Body mass index [BMI] 40.0-44.9, adult; Z88.0 Allergy status to penicillin
CPT/HCPCS: 43239; 81025; 88305; J2250; J2704; J3010; J7121

== ENCOUNTER 2020-02-10 08:28 | Inpatient (IN) | payer MEDICAID ==
[~2020-02-10 08:28] MED LIST: Bupivacaine 0.5% 50 ML MDV ONE; Dexamethasone 4 MG/ML SDV ONE; Glycopyrrolate 0.2 MG/ML 5 ML MDV ONE; Ketamine 50 MG in Sodium Chloride 0.9% 49.5 ML IV SCH; Ketamine 500 MG/5 ML MDV IV SCH; Lidocaine 1% with EPINEPHrine 1:100,000 50 ML MDV ONE; Magnesium Sulfate 3.5 GM in Sodium Chloride 0.9% 100 ML IV SCH; Magnesium Sulfate 5.5 GM in Sodium Chloride 0.9% 250 ML IV ONE; Neostigmine Methylsulfate 1 MG/ML 5 ML Syringe ONE; Ondansetron 4 MG/2 ML SDV ONE; Propofol 200 MG/20 ML SDV ONE; Rocuronium 50 MG/5 ML Vial ONE; Succinylcholine 200 MG/10 ML MDV ONE; fentaNYL 250 MCG/5 ML SDV ONE
[2020-02-10] MEDS ORDERED: Acetaminophen 500 MG Tab PO ONE (08:30)
[2020-02-10] MEDS ORDERED: Celecoxib 200 MG Cap PO ONE (08:30)
[2020-02-10] MEDS ORDERED: Scopolamine 1.5 MG Transdermal Patch TOP ONE (08:45)
[2020-02-10] MEDS ORDERED: Dextrose 5%-Lactated Ringers 1,000 ML IV SCH (09:30)
[2020-02-10] MEDS ORDERED: cefOXitin 2 GM in Sodium Chloride 0.9% 50 ML IV ONE (10:30)
[2020-02-10] MEDS ORDERED: Albuterol/Ipratropium 3.0-0.5 MG/3 ML Neb Soln NEB ONE (10:30)
[2020-02-10] MEDS ORDERED: Lactated Ringers 1,000 ML ONE (10:34)
[2020-02-10] MEDS ORDERED: Naloxone 0.4 MG/ML SDV IVPUSH PRN (10:49)
[2020-02-10] MEDS ORDERED: Naloxone 0.4 MG/ML SDV IV PRN (11:00)
[2020-02-10] MEDS: HYDROmorphone/Normal Saline 15 MG/30 ML PCA IV PRN (11:28)
[2020-02-10] MEDS ORDERED: Meropenem 500 MG SDV ONE (11:51)
[2020-02-10] MEDS ORDERED: fentaNYL 100 MCG/2 ML SDV ONE (11:52)
[2020-02-10] MEDS ORDERED: Sugammadex Sodium 200 MG/2 ML VIAL ONE (12:11)
[2020-02-10] MEDS ORDERED: hydrOXYzine HCL 100 MG/2 ML SDV IM ONE (12:37)
[2020-02-10] MEDS ORDERED: Acetaminophen 500 MG Tab PO SCH (13:30)
[2020-02-10] MEDS ORDERED: Rizatriptan 10 MG Tab.DIS PO PRN (13:38)
[2020-02-10] MEDS ORDERED: SUMAtriptan 6 MG/0.5 ML SDV SUBCUT PRN (13:38)
[2020-02-10] MEDS: Dextrose 5%-Lactated Ringers 1,000 ML IV SCH ×2 (13:50→21:35)
[2020-02-10] MEDS ORDERED: Albuterol/Ipratropium 3.0-0.5 MG/3 ML Neb Soln INH PRN (14:00)
[2020-02-10] MEDS ORDERED: Metoclopramide 10 MG/2 ML SDV IVPUSH PRN (14:00)
[2020-02-10] MEDS ORDERED: hydrOXYzine HCL 100 MG/2 ML SDV IM PRN (14:00)
[2020-02-10] MEDS ORDERED: Calcium Gluconate 10% 1 GM/10 ML SDV IVPUSH PRN (14:00)
[2020-02-10] MEDS ORDERED: Acetaminophen 500 MG Tab PO PRN (14:00)
[2020-02-10] MEDS ORDERED: Labetalol 20 MG/4 ML Syringe IVPUSH PRN (14:00)
[2020-02-10] MEDS ORDERED: Ondansetron 4 MG/2 ML SDV IVPUSH PRN (14:00)
[2020-02-10] MEDS ORDERED: diphenhydrAMINE 50 MG/ML SDV IVPUSH PRN (14:00)
[2020-02-10] MEDS: Albuterol/Ipratropium 3.0-0.5 MG/3 ML Neb Soln INH SCH ×2 (14:22→20:13)
[2020-02-10] MEDS: cefOXitin 2 GM in Sodium Chloride 0.9% 50 ML IV SCH ×2 (15:28→21:34)
[2020-02-10] MEDS: Acetaminophen 500 MG Tab PO SCH ×2 (15:31→23:34)
[2020-02-10] MEDS: Pantoprazole 40 MG Vial IVPUSH SCH (15:31)
[2020-02-10] MEDS: Cyclobenzaprine 10 MG Tab PO PRN ×2 (15:35→23:34)
[2020-02-10] MEDS ORDERED: MVI, Adult with Vitamin K 10 ML, Thiamine 200 MG, Chromium/Copper/Mang/Selen/Zn 1 ML in... IV SCH ×4 (16:00)
[2020-02-10] MEDS: Heparin Sodium 5,000 Units/ML Vial SUBCUT SCH (20:12)
[2020-02-10] MEDS: Formoterol/Mometasone 200-5 MCG 8.8 GM Inhaler IH SCH ×2 (20:13→20:24)
[2020-02-11] MEDS: HYDROmorphone/Normal Saline 15 MG/30 ML PCA IV PRN (01:25)
[2020-02-11] MEDS ORDERED: Iopamidol 612 MG/ML 50 ML SDV PO STA (02:22)
[2020-02-11] MEDS: Dextrose 5%-Lactated Ringers 1,000 ML IV SCH (03:24)
[2020-02-11] MEDS: cefOXitin 2 GM in Sodium Chloride 0.9% 50 ML IV SCH ×2 (03:27→09:09)
[2020-02-11] MEDS ORDERED: Ondansetron 4 MG Tab.DIS PO PRN (07:17)
[2020-02-11] MEDS: Formoterol/Mometasone 200-5 MCG 8.8 GM Inhaler IH SCH ×2 (07:25→21:48)
[2020-02-11] MEDS: Albuterol/Ipratropium 3.0-0.5 MG/3 ML Neb Soln INH SCH ×4 (07:26→21:50)
[2020-02-11] MEDS ORDERED: Dextrose 5%-Lactated Ringers 1,000 ML IV SCH (07:30)
--- NOTE | 2020-02-11 07:59 | PN ---
DATE OF SERVICE: 02/11/2020 SUBJECTIVE: Barbara is postoperative day #1. Her upper GI was normal. She did have some bradycardia followed by tachycardia. Asymptomatic, afebrile. IV did infiltrate in the left arm, is somewhat edematous. Pain is controlled with the PRODUCT ASSEMBLER. REVIEW OF SYSTEMS: Remainder of review of systems negative for any pertinent positives or negatives. OBJECTIVE: GENERAL: Barbara Recio is a pleasant 24-year-old female. She is lying in bed with the head of bed up. Alert, orientated. VITAL SIGNS: TPR at 0700, 96.5; 68; 18; blood pressure 114/57. HEENT: Negative. NECK: Supple. HEART: Regular rate and rhythm. LUNGS: Clear. ABDOMEN: Dressing dry and intact. OMAR drain is intact and has put out 110 mL of a light red drainage. Abdominal binder is on. EXTREMITIES: Without peripheral edema. ASSESSMENT: Exploratory laparotomy with: 1. Esophagogastrectomy with Becca-en-Y esophagojejunostomy. 2. Repair of paraesophageal diaphragmatic hernia. 3. Gastrectomy for evacuation of gastric bezoar. POSTOPERATIVE DIAGNOSES: 1. Severe gastroparesis and gastroesophageal reflux disease with moderate inflammation extending up to the esophageal junction, small paraesophageal diaphragmatic hernia, and large volume of gastric bezoar. 2. Date of procedure: 02/10/2020. PLAN: 1. Decrease IV to 100 mL per hour. 2. Step 2 gastric bypass without cereal. 3. Communication order: 3 med cups per hour, record at bedside. 4. May shower. 5. Dietary consult. 6. We will evaluate p.r.n. or in a.m. Karla Bella PA-C /[id number]
[2020-02-11] MEDS: Cyclobenzaprine 10 MG Tab PO PRN ×2 (09:01→20:30)
[2020-02-11] MEDS: Celecoxib 200 MG Cap PO SCH ×2 (09:03→21:48)
[2020-02-11] MEDS: Heparin Sodium 5,000 Units/ML Vial SUBCUT SCH ×2 (09:03→21:48)
[2020-02-11] MEDS: SCOPOLAMINE PATCH CHECK TOP SCH (09:04)
[2020-02-11] MEDS: Acetaminophen 500 MG Tab PO SCH ×2 (09:04→15:30)
--- NOTE | 2020-02-11 09:11 | CR ---
UGI Limited HISTORY: Postbariatric surgery FINDINGS: Patient swallowed water-soluble contrast. Upright views of the abdomen show no evidence of extravasation or obstruction. There is a surgical drain in the left upper quadrant. There is some mild small bowel distention in slow transit through the small bowel suggesting some postoperative ileus. IMPRESSION: Status post bariatric surgery No extravasation or obstruction seen Postop ileus
[2020-02-11] MEDS: Pantoprazole 40 MG Vial IVPUSH SCH (15:30)
[2020-02-11] MEDS ORDERED: MVI, Adult with Vitamin K 10 ML, Thiamine 200 MG, Chromium/Copper/Mang/Selen/Zn 1 ML in... IV SCH ×4 (16:00)
[2020-02-11] MEDS ORDERED: diphenhydrAMINE 25 MG Cap PO PRN (19:51)
[2020-02-11] MEDS ORDERED: Metoclopramide 10 MG Tab PO PRN (19:51)
[2020-02-11] MEDS: HYDROmorphone 2 MG Tab PO PRN (20:30)
[2020-02-12] MEDS: Acetaminophen 500 MG Tab PO SCH ×4 (00:52→23:48)
[2020-02-12] MEDS: HYDROmorphone 2 MG Tab PO PRN ×6 (00:55→20:36)
[2020-02-12] MEDS: Albuterol/Ipratropium 3.0-0.5 MG/3 ML Neb Soln INH SCH ×4 (07:02→20:01)
[2020-02-12] MEDS: Formoterol/Mometasone 200-5 MCG 8.8 GM Inhaler IH SCH ×2 (07:02→20:01)
--- NOTE | 2020-02-12 08:15 | PN ---
DATE OF SERVICE: 02/12/2020 SUBJECTIVE: Barbara's IV infiltrated. She was started on oral pain medication. Her vital signs have been stable. Pain has been managed. Oral intake was 1310. Urine output was 1200. OMAR drain put out 30 mL of a light pink drainage. REVIEW OF SYSTEMS: Remainder of review of systems negative for any pertinent positives and negatives. OBJECTIVE: GENERAL: Barbara Recio is a pleasant 24-year-old female. She is alert and oriented. VITAL SIGNS: TPR is 96.2, 95, 16, blood pressure 136/62. HEENT: Negative. NECK: Supple. HEART: Regular rate and rhythm. LUNGS: Clear. ABDOMEN: Aquacel dressing is on. OMRA drain intact as noted above. Abdominal binder is on. EXTREMITIES: Without peripheral edema. ASSESSMENT: Exploratory laparotomy with: 1. Esophagogastrectomy with Becca-en-Y esophagogastrojejunostomy. 2. Repair of paraesophageal diaphragmatic hernia. 3. Gastrectomy for evacuation of gastric bezoar. POSTOPERATIVE DIAGNOSES: 1. Severe gastroparesis and gastroesophageal reflux disease with moderate inflammation extending up to the esophageal junction and periesophageal diaphragmatic hernia and large volume of gastric bezoar. 2. Date of procedure: 02/10/2020. PLAN: 1. Dietary consult daily to reinforce dietary teaching for partial gastrectomy. She will be on a step 2 diet for 2 weeks. 2. Discontinue OMAR drain. 3. Communication order for 3 med cups per hour, 1 per every 20 minutes, record at bedside. 4. Continue use of incentive spirometer. 5. We will evaluate p.r.n. or in a.m. Karla Bella PA-C /[id number]
[2020-02-12] MEDS ORDERED: Cyanocobalamin (Vitamin B12) 1,000 MCG/ML SDV IM ONE (09:00)
[2020-02-12] MEDS: Heparin Sodium 5,000 Units/ML Vial SUBCUT SCH ×2 (09:06→20:01)
[2020-02-12] MEDS: Celecoxib 200 MG Cap PO SCH ×2 (09:14→20:01)
[2020-02-12] MEDS: SCOPOLAMINE PATCH CHECK TOP SCH (13:39)
[2020-02-12] MEDS: Cyclobenzaprine 10 MG Tab PO PRN ×2 (15:22→23:51)
[2020-02-13] MEDS: HYDROmorphone 2 MG Tab PO PRN ×2 (02:43→08:51)
[2020-02-13] MEDS: Albuterol/Ipratropium 3.0-0.5 MG/3 ML Neb Soln INH SCH (07:03)
[2020-02-13] MEDS: Formoterol/Mometasone 200-5 MCG 8.8 GM Inhaler IH SCH (07:03)
[2020-02-13 07:45] VITALS: BP 131/66; PULSE 104
[2020-02-13] MEDS: Acetaminophen 500 MG Tab PO SCH (08:52)
[2020-02-13] MEDS: Heparin Sodium 5,000 Units/ML Vial SUBCUT SCH (08:52)
[2020-02-13] MEDS: Celecoxib 200 MG Cap PO SCH (08:52)
--- NOTE | 2020-02-13 09:57 | DISCH ---
ADMISSION DIAGNOSES: 1. Gastroesophageal reflux disease refractory to medical management. 2. Exercise-induced asthma. 3. Depression. 4. Morbid obesity. 5. BMI 42.4. DISCHARGE DIAGNOSES: Exploratory laparotomy with: 1. Esophagogastrectomy with Becca-en-Y esophagogastrojejunostomy. 2. Repair of paraesophageal diaphragmatic hernia. 3. Gastrectomy for evacuation of gastric bezoar. POSTOPERATIVE DIAGNOSES: 1. Severe gastroparesis and gastroesophageal reflux disease with moderate inflammation extending to the esophageal junction and paraesophageal diaphragmatic hernia and large volume of gastric bezoar. 2. Date of procedure: 02/10/2020. Surgeon: Benton Ball MD. HISTORY: Barbara Recio is a pleasant 24-year-old female with a history of GERD refractory to medical management, severe gastroparesis and gastric bezoar. After preoperative evaluation and discussion of possible risks and possible complications, she wished to proceed with surgical procedure. HOSPITAL COURSE: Barbara had her surgery on 02/10/2020. She had no operative complications. On postoperative day #1, she was started on a step 2 gastric bypass diet, and later in that day, she was changed to oral pain medication. She received dietary instruction daily, and the pain was controlled with oral Dilaudid alternating with Flexeril. On postoperative day 3, she was able to be discharged to home without any complications. PHYSICAL EXAMINATION: GENERAL: Barbara Recio is a pleasant 24-year-old female. VITAL SIGNS: Height is 5 feet 4 inches, weight is 247 pounds. BMI is 42. TPR is 97.2, 104, 18, blood pressure 131/62. HEENT: Negative. NECK: Supple. HEART: Regular rate and rhythm. LUNGS: Clear. ABDOMEN: Aquacel dressings on, will be replaced. Abdominal binder is on, 4x4 over OMAR drain site. EXTREMITIES: Without peripheral edema. DISPOSITION: Discharged to home. CONDITION: Stable and improving. FOLLOWUP: Appointment with Karla Bella PA-C, on 02/23/2020 at 2:00 p.m. New prescriptions: 1. Celebrex 200 mg p.o. b.i.d. for 2 weeks. 2. Dilaudid 2 mg every 6 hours p.r.n. pain, #28. 3. Flexeril 10 mg oral q.8 hours p.r.n. muscle spasms, #30. 4. Tylenol Extra Strength 1000 mg every 8 hours p.r.n. pain. 5. Zofran 4 mg q.4 hours p.r.n. nausea, #30. To resume home medications of: 1. Combivent Respimat 2 inhalations every 4 hours p.r.n. shortness of breath. 2. Advair HFA 230/21 mcg mg, 2 puffs inhalation twice daily p.r.n. shortness of breath. 3. Omeprazole 20 mg p.o. daily. 4. Maxalt-FARROWING WORKER 10 mg oral as directed p.r.n. migraine headache. 5. Imitrex 6 mg subcu daily p.r.n. migraine headache and Imitrex 50 mg oral as directed p.r.n. migraine headache. DIET: Step 2 gastric bypass diet without cereal until 02/25/2020. ACTIVITY: No lifting over 10 pounds for 6 weeks. Other activity: Walk at least 6 times daily inside your house. Driving after Discharge: Do not drive for 1 week and while on pain medication. Shower/bathing: May shower. DISCHARGE INSTRUCTIONS: Notify provider if any fever, increased pain, swelling, redness, nausea, or vomiting. Wound incision care; keep site clean and dry. Wear abdominal binder for 6 weeks. Take off Aquacel dressing on 02/16/2020. SPECIAL INSTRUCTION: Use incentive spirometer 10 times every hour while awake.
--- NOTE | 2020-02-18 11:21 | OR ---
DATE OF PROCEDURE: 02/10/2020 SURGEON: Benton Ball MD PREOPERATIVE DIAGNOSIS: Severe gastroesophageal reflux disease with associated gastroparesis. POSTOPERATIVE DIAGNOSES: 1. Severe gastroparesis with recurrent and intermittent gastroesophageal reflux disease with mild inflammation extending up to and above the esophagogastric junction. 2. Small paraesophageal diaphragmatic hernia. 3. Large volume gastric bezoar. OPERATIVE PROCEDURES: Exploratory laparotomy with: 1. Esophagogastrectomy with Becca-en-Y esophagojejunostomy (98442). 2. Repair of paraesophageal diaphragmatic hernia (66161). 3. Gastrotomy for evacuation of gastric bezoar (64607). ANESTHESIA: General. [facility]: Karla Bella PA-C INDICATIONS FOR PROCEDURE: This is a 24-year-old presenting with quite severe gastroesophageal reflux disease. As part of the workup, she was noted to have very large volume gastric bezoar. This then was noted to have been present back 6 years ago as well and the underlying diagnosis is unclear. She is not overtly a diabetic, but hemoglobin A1c will be checked at any rate. For treatment of the gastroesophageal reflux disease, Osiris fundoplication or similar procedure would be contraindicated due to the poor gastric emptying, so plan is to proceed with a partial gastrectomy with Becca-en-Y reconstruction. We will also plan to evacuate the gastric bezoar and identify any paraesophageal hernias that might be present and repair those concurrently. Potential risks of the procedure including bleeding, infection, leaks from various GI tract closures, as well as possibility of bowel obstruction over time as well as possibility of cardiopulmonary, septic, or hemorrhagic complications leading to were discussed, and the patient wishes to proceed. DETAILS OF PROCEDURE: The patient was taken to the operating room, and after general endotracheal anesthesia was induced, Pina catheter inserted, and the abdomen prepped and draped. Upper midline incision from the xiphoid to just above the umbilicus was made and carried down through the full-thickness abdominal wall and the peritoneal cavity entered. Upon entering the peritoneal cavity, general exploration was undertaken. As expected, large volume of bezoar was palpable within the stomach. Upon elevation of the liver, it became evident that there was a small paraesophageal hernia with prolapse of posterior aspect of the gastric cardia behind the course of the esophagus. As this was reduced, there was a quite striking edema in the area of the esophagogastric junction, therefore the above resection would be best served up onto the esophagus. After the area of the distal esophagus was then encircled, this was then divided with a WILL stapler. The gastrotomy was then placed in the anterior body of the stomach and the bezoar was then evacuated by means of specimen retrieval bag so as to minimize the intraperitoneal contamination. The gastrotomy was then closed off with a WILL stapler and portion of the proximal stomach resected and this together was sent as a partial gastrectomy specimen. The paraesophageal diaphragmatic hernia was then repaired posteriorly with 0 Ethibond sutures reinforced with PTFE pledgets. The Becca limb was then constructed. The small bowel was identified at the ligament of Treitz and traced down 200 cm distal to that point. It was divided transversely with a WILL stapler. Small bowel was then traced out additional 150 cm where the vvoi-rz-alrh enteroenterostomy was accomplished with internal firing of the Endo-WILL 60 mm stapler. Common opening was then closed transversely with the same stapler and angles anastomosed and mesenteric defect approximated with some 3-0 Vicryl stitch. Opening in the gastric portion of the transverse mesocolon was then accomplished with a combination of cautery and blunt dissection, and the Becca limb then came up to the divided esophagus without difficulty. The anvil of a 25 mm EEA stapler was attached to Lockbourne sump type tube and this was brought down through the mouth of the patient and taken out through a small opening in the divided esophagus, allowing the anvil likewise to be pulled down to the end of the divided esophagus. Divided end of the Becca limb was then opened and main body of the EEA stapler passed several centimeters into the lumen of small bowel, brought up the anvil and united with it, thus creating the esophagojejunostomy. Upon removal of the stapler, double donuts of mucosa were noted within it. Again, the proximal donut of tissue within the EEA stapler was fairly esophageal in terms of its general appearance. The esophagojejunostomy was then reinforced with some 3-0 Vicryl seromuscular stitch along with fibrin sealant. The abdomen was irrigated with an antibiotic-containing saline solution. With no further problems noted, a single Kartik-López drain was taken through stab wound in the left subcostal area. Bilateral transversus abdominis plane blocks were placed and the drain was then positioned up against the esophagojejunostomy, from there into the splenic fossa. The midline fascia was then approximated with #2 Vicryl stitch , subcutaneous tissue with 2 layers of 3-0 and 4-0 Vicryl stitch, and the skin with supa. Dressing was applied. The patient was taken to the recovery room in satisfactory condition. Physician veterinary technician assistant, Karla Bella, played an essential role in assisting in this case, helping to position the patient, retract structures as needed, as well as suturing and cutting sutures when indicated. Her presence improved the patient's safety and decreased operative time. Benton Ball MD /[id number]
== END 2020-02-13 10:15 | disposition home or self-care (01) | DRG 327 ==
LOC: JP.SDSSCHI 08:28 → JP.SDS 08:28 → JP.MS 12:25 → EDSTATUS 15:45
PROVIDERS: ADMIT Surgery; ATTEND Surgery
PROC: 0DB60ZZ Excision of Stomach, Open Approach (ICD-10-PCS; principal; 2020-02-10)
PROC: 0D150ZA Bypass Esophagus to Jejunum, Open Approach (ICD-10-PCS; 2020-02-10)
PROC: 0BQT0ZZ Repair Diaphragm, Open Approach (ICD-10-PCS; 2020-02-10)
PROC: 0D960ZZ Drainage of Stomach, Open Approach (ICD-10-PCS; 2020-02-10)
DX: K31.84 Gastroparesis (principal); Z68.41 Body mass index [BMI] 40.0-44.9, adult; K21.9 Gastro-esophageal reflux disease without esophagitis; E66.01 Morbid (severe) obesity due to excess calories; F32.9 Major depressive disorder, single episode, unspecified; J45.909 Unspecified asthma, uncomplicated; K44.9 Diaphragmatic hernia without obstruction or gangrene; T18.2XXA Foreign body in stomach, initial encounter
CPT/HCPCS: 74240; 74240-26; 81025; 82962; 88305; 94640; 94762; A9270-GY; C9113; J0171; J0330; J0694; J1100; J1170; J1644; J2185; J2405; J2704; J2710; J2795; J3010; J3410; J3411; J3420; J3475; J3490; J7050; J7120; J7121; J7620-GY; Q9967

== ENCOUNTER 2020-03-16 09:48 | Day surgery (SDC) | payer MEDICAID ==
[2020-03-16] MEDS ORDERED: Glycopyrrolate 0.2 MG/ML 2 ML SDV IVPUSH ONE (11:00)
[2020-03-16] MEDS ORDERED: Cyanocobalamin (Vitamin B12) 1,000 MCG/ML SDV IM ONE (11:00)
[2020-03-16] MEDS ORDERED: Lactated Ringers 1,000 ML IV ONE (11:00)
[2020-03-16] MEDS ORDERED: MVI, Adult with Vitamin K 10 ML, Thiamine 200 MG, Chromium/Copper/Mang/Selen/Zn 1 ML in... IV ONE ×4 (12:00)
[2020-03-16] MEDS ORDERED: Midazolam 1 MG/ML 2 ML SDV ONE (12:04)
[2020-03-16] MEDS ORDERED: fentaNYL 100 MCG/2 ML SDV ONE (12:04)
[2020-03-16] MEDS ORDERED: Propofol 200 MG/20 ML SDV ONE (12:04)
[2020-03-16] MEDS ORDERED: Dexamethasone 4 MG/ML SDV ONE (12:35)
[2020-03-16 13:43] VITALS: BP 108/75; PULSE 64
--- NOTE | 2020-03-23 13:07 | OR ---
DATE OF PROCEDURE: 03/16/2020 SURGEON: Benton Ball MD PREOPERATIVE DIAGNOSIS: Probable stricture at esophagojejunostomy. POSTOPERATIVE DIAGNOSIS: Tight stricture at esophagojejunostomy. OPERATIVE PROCEDURE: Upper gastrointestinal endoscopy with dilation of esophagojejunostomy (14000). ANESTHESIA: IV sedation. INDICATIONS FOR PROCEDURE: A 24-year-old female, presenting with some symptoms of stricturing at her esophagojejunostomy. The plan is to proceed with upper endoscopy with dilation as indicated. Potential risks including bleeding and perforation were discussed, and the patient wishes to proceed. DETAILS OF PROCEDURE: The patient was taken to the operating room and placed in a left lateral decubitus position. IV sedation was administered, after which the upper GI endoscope was passed orally through the length of the esophagus and into the area of the esophagojejunostomy. This was noted to be quite tight with 1 cm scope not being able to be passed through that area. Using fluoroscopic surveillance, gastrointestinal balloon catheter was centered across the anastomosis and inflated to 30-Cypriot size. This was held in position for 1 minute, after which the balloon catheter was deflated and withdrawn. Scope was easily then passed through the anastomosis. No complications were noted. The procedure was concluded. The patient was taken to the recovery room in satisfactory condition. There were no evident complications. The patient is undergoing some ongoing problems with biliary colic and the next step in this patient's management will be a laparoscopic cholecystectomy tentatively scheduled for this Sunday. Benton Ball MD /[id number]
== END 2020-03-16 14:08 | disposition home or self-care (01) ==
LOC: JP.SDS 09:48
PROVIDERS: ATTEND Surgery
DX: K91.89 Other postprocedural complications and disorders of digestive system (principal); K80.50 Calculus of bile duct without cholangitis or cholecystitis without obstruction; K21.9 Gastro-esophageal reflux disease without esophagitis; E66.9 Obesity, unspecified; F32.9 Major depressive disorder, single episode, unspecified; Z01.812 Encounter for preprocedural laboratory examination; Z20.828 Contact with and (suspected) exposure to other viral communicable diseases; Z68.38 Body mass index [BMI] 38.0-38.9, adult
CPT/HCPCS: 43249; 81025; 87635; J1100; J2250; J2704; J3010; J3411; J3420; J3490; J7120; U0002

== ENCOUNTER 2020-03-19 05:40 | Day surgery (SDC) | payer MEDICAID ==
[2020-03-19] MEDS ORDERED: Celecoxib 200 MG Cap PO ONE (05:45)
[2020-03-19] MEDS ORDERED: Acetaminophen 500 MG Tab PO ONE (05:45)
[2020-03-19] MEDS ORDERED: Dextrose 5%-Lactated Ringers 1,000 ML IV SCH (06:30)
[2020-03-19] MEDS ORDERED: Bupivacaine 0.5%/EPINEPHrine 1:200,000 50 ML MDV ONE (06:48)
[2020-03-19] MEDS ORDERED: Albuterol 8 GM Inhaler INH ONE (07:00)
[2020-03-19] MEDS ORDERED: Propofol 200 MG/20 ML SDV ONE (07:09)
[2020-03-19] MEDS ORDERED: Dexamethasone 4 MG/ML SDV ONE (07:09)
[2020-03-19] MEDS ORDERED: Ondansetron 4 MG/2 ML SDV ONE (07:09)
[2020-03-19] MEDS ORDERED: Rocuronium 50 MG/5 ML Vial ONE (07:09)
[2020-03-19] MEDS ORDERED: Neostigmine Methylsulfate 1 MG/ML 5 ML Syringe ONE (07:09)
[2020-03-19] MEDS ORDERED: Glycopyrrolate 0.2 MG/ML 5 ML MDV ONE (07:09)
[2020-03-19] MEDS ORDERED: fentaNYL 250 MCG/5 ML SDV ONE (07:10)
[2020-03-19] MEDS ORDERED: cefOXitin 2 GM in Sodium Chloride 0.9% 50 ML IV ONE (07:15)
[2020-03-19] MEDS ORDERED: Lidocaine 1% 50 ML MDV ONE (07:29)
[2020-03-19] MEDS ORDERED: Ropivacaine 50 ML, dexAMETHasone 8 MG, EPINEPHrine 0.4 MG, Sodium Chloride 0.9% 27.6 ML NERVRT SCH ×4 (07:30)
[2020-03-19] MEDS ORDERED: Ketamine 50 MG in Sodium Chloride 0.9% 49.5 ML IV SCH (07:30)
[2020-03-19] MEDS ORDERED: Ketamine 500 MG/5 ML MDV IV SCH (07:30)
[2020-03-19] MEDS ORDERED: fentaNYL 100 MCG/2 ML SDV ONE (07:35)
[2020-03-19] MEDS ORDERED: Succinylcholine 200 MG/10 ML MDV ONE (07:52)
[2020-03-19] MEDS ORDERED: Labetalol 20 MG/4 ML Syringe ONE (07:53)
[2020-03-19] MEDS ORDERED: hydrOXYzine HCL 100 MG/2 ML SDV IM ONE (08:05)
[2020-03-19] MEDS ORDERED: fentaNYL 100 MCG/2 ML SDV IVPUSH ONE (08:27)
[2020-03-19] MEDS ORDERED: Ondansetron 4 MG/2 ML SDV IVPUSH PRN (10:00)
[2020-03-19] MEDS ORDERED: HYDROmorphone 0.5 MG/0.5 ML Syringe IVPUSH PRN (10:00)
[2020-03-19] MEDS ORDERED: HYDROmorphone 1 MG/ML Syringe IV PRN (10:00)
[2020-03-19] MEDS: Acetaminophen/HYDROcodone 325-5 MG Tab PO PRN ×3 (11:04→19:30)
[2020-03-19] MEDS: Dextrose 5%-Lactated Ringers 1,000 ML IV SCH ×2 (11:06→19:29)
[2020-03-19] MEDS ORDERED: Pantoprazole 40 MG Vial IVPUSH SCH (14:00)
[2020-03-19] MEDS: cefOXitin 2 GM in Sodium Chloride 0.9% 50 ML IV SCH ×2 (14:44→19:24)
[2020-03-20] MEDS: Acetaminophen/HYDROcodone 325-5 MG Tab PO PRN ×2 (02:12→06:05)
[2020-03-20 07:41] VITALS: BP 116/76; PULSE 73
--- NOTE | 2020-03-22 08:47 | DISCH ---
FINAL DIAGNOSIS: Biliary dyskinesia. SECONDARY DIAGNOSES: 1. Recent esophagogastrectomy for delayed gastric emptying. 2. History of appendectomy. OPERATIVE PROCEDURES: Done on 03/19, laparoscopic cholecystectomy. SUMMARY: This is a 24-year-old female presenting with worsening right upper quadrant pain. She had a CCK-stimulated HIDA scan, which had an ejection fraction of only and the CCK injection caused reproduction of her pain. On 03/19, the patient underwent laparoscopic cholecystectomy. Postoperatively, no major problems were noted. She will be discharged home on her usual medications plus Drummond 5/325 1 to 2 tablets q.6 hours p.r.n. pain, regular diet, and she will be following up with Karla Bella at [facility] on 03/29/2020.
--- NOTE | 2020-03-28 12:36 | OR ---
DATE OF PROCEDURE: 03/19/2020 SURGEON: Benton Ball MD PREOPERATIVE DIAGNOSIS: Biliary dyskinesia. POSTOPERATIVE DIAGNOSIS: Biliary dyskinesia. OPERATIVE PROCEDURE: Laparoscopic cholecystectomy. ANESTHESIA: General. [employer]OR [employer]KER: Karla Bella PA-C. INDICATIONS FOR PROCEDURE: A 24-year-old female, who is recently status post a gastric bypass type procedure for severe gastroparesis. She recently had some increasing problems with right upper quadrant pain and a CCK-stimulated HIDA scan showed ejection fraction of only around 4% with the CCK injection causing reproduction of her symptoms. Plan is to proceed with a laparoscopic cholecystectomy. Potential risks including bleeding, infection, injury to common bile duct or adjacent viscera were reviewed as well as possibility of persistent symptoms and the patient wishes to proceed. DETAILS OF PROCEDURE: The patient was taken to the operative room, placed in a supine position. After general endotracheal anesthesia was induced, the abdomen was prepped and draped. Given the patient's recent midline incision, we elected to enter the abdomen through the right midabdomen with an Optiview trocar. and peritoneal cavity was inflated to 15 mmHg pressure with CO2. The second trocar was then placed in the area just lateral to the midline. right subcostal area. Gallbladder was inspected, was noted to be quite edematous and distended. Gallbladder was retracted anteriorly and laterally and dissection with Harmonic Scalpel began on the gallbladder neck, continued around the gallbladder neck-cystic duct junction. Once this area was well delineated along with the adjacent cystic artery, both structures were clipped 3 times proximally once distally and divided. The gallbladder was then dissected off the gallbladder bed using Harmonic scalpel and delivered through the epigastric trocar site. At this point, no further problems were noted. Trocars were removed and peritoneal cavity deflated. The fascia at the 12 mm site was closed with 0 Vicryl stitch and skin with 4-0 Vicryl skin stitch. Dressing was applied. The patient was taken to the recovery room in satisfactory condition. Physician language assistant, Karla Bella, played an essential role in assisting in this case, helping to position the patient, retract structures as needed as well as suturing and cutting sutures when indicated. Her presence improved patient safety and decreased operative time. Benton Ball MD /[id number]
== END 2020-03-20 11:05 | disposition home or self-care (01) ==
LOC: JP.SDS 05:40 → JP.MS 08:30 → JP.SDS 03-20 11:05
PROVIDERS: ATTEND Surgery
DX: K81.1 Chronic cholecystitis (principal); Z90.49 Acquired absence of other specified parts of digestive tract; J45.20 Mild intermittent asthma, uncomplicated; E66.9 Obesity, unspecified; D64.9 Anemia, unspecified; Z79.899 Other long term (current) drug therapy; Z88.0 Allergy status to penicillin; Z98.84 Bariatric surgery status; Z68.37 Body mass index [BMI] 37.0-37.9, adult
CPT/HCPCS: 36415; 47562; 81025; 82247; 84075; 85025; A9270; C9113; J0171; J0330; J0694; J1100; J2405; J2704; J2710; J2795; J3010; J3410; J3490; J7121; 88304; J2001

== ENCOUNTER 2020-03-26 09:49 | Day surgery (SDC) | payer MEDICAID ==
[2020-03-26] MEDS ORDERED: Propofol 200 MG/20 ML SDV ONE (10:14)
[2020-03-26] MEDS ORDERED: fentaNYL 100 MCG/2 ML SDV ONE (10:14)
[2020-03-26] MEDS ORDERED: Midazolam 1 MG/ML 2 ML SDV ONE (10:14)
[2020-03-26] MEDS ORDERED: Cyanocobalamin (Vitamin B12) 1,000 MCG/ML SDV IM ONE (10:30)
[2020-03-26] MEDS ORDERED: Lactated Ringers 1,000 ML IV SCH (10:30)
[2020-03-26] MEDS ORDERED: Glycopyrrolate 0.2 MG/ML 2 ML SDV IVPUSH ONE (11:15)
[2020-03-26] MEDS ORDERED: MVI, Adult with Vitamin K 10 ML, Thiamine 200 MG, Chromium/Copper/Mang/Selen/Zn 1 ML in... IV ONE ×4 (11:30)
[2020-03-26 13:03] VITALS: BP 127/85; PULSE 74
--- NOTE | 2020-04-06 12:20 | OR ---
DATE OF PROCEDURE: 03/26/2020 SURGEON: Benton Ball MD PREOPERATIVE DIAGNOSIS: Probable stricture at esophagojejunal anastomosis. POSTOPERATIVE DIAGNOSIS: Moderate stricture at esophagojejunal anastomosis. OPERATIVE PROCEDURE: Upper GI endoscopy with dilation of esophagojejunal anastomosis (42339). ANESTHESIA: IV sedation. INDICATIONS FOR PROCEDURE: This is a 24-year-old, status post recent esophagogastrectomy for severe problems with gastric emptying, she presents now with some stricturing at esophagojejunal anastomosis. Plan is to proceed with upper GI endoscopy with dilation as indicated. Potential risks including bleeding and perforation were discussed, and the patient wishes to proceed. DETAILS OF PROCEDURE: The patient was taken to the operating room, placed in a left lateral decubitus position. IV sedation was administered, after which the upper GI endoscope was passed orally through the length of the esophagus and into the area of the esophagojejunal anastomosis. This was fairly tight with 1 cm scope not being able to be passed through the anastomosis. A Bard gastrointestinal catheter was then centered across the anastomosis and inflated to 36-Czech size. This was held in position for 1 minute, after which balloon catheter was deflated and withdrawn. Scope was easily passed through the anastomosis. No complications were noted and the procedure was concluded. The patient was taken to the recovery room in satisfactory condition. Benton Ball MD /[id number]
== END 2020-03-26 13:06 | disposition home or self-care (01) ==
LOC: JP.SDS 09:49
PROVIDERS: ATTEND Surgery
DX: K91.89 Other postprocedural complications and disorders of digestive system (principal); K22.2 Esophageal obstruction; J45.909 Unspecified asthma, uncomplicated; K21.9 Gastro-esophageal reflux disease without esophagitis; Z88.8 Allergy status to other drugs, medicaments and biological substances; Z01.812 Encounter for preprocedural laboratory examination; Z20.828 Contact with and (suspected) exposure to other viral communicable diseases
CPT/HCPCS: 43249; 87635; J2250; J2704; J3010; J3411; J3420; J3490; J7120; U0002

== ENCOUNTER 2020-04-09 06:30 | Day surgery (SDC) | payer MEDICAID ==
[2020-04-09] MEDS ORDERED: Cyanocobalamin (Vitamin B12) 1,000 MCG/ML SDV IM ONE (07:00)
[2020-04-09] MEDS ORDERED: Lactated Ringers 1,000 ML IV ONE (07:00)
[2020-04-09] MEDS ORDERED: Propofol 200 MG/20 ML SDV ONE (07:14)
[2020-04-09] MEDS ORDERED: fentaNYL 100 MCG/2 ML SDV ONE (07:14)
[2020-04-09] MEDS ORDERED: Midazolam 1 MG/ML 2 ML SDV ONE (07:14)
[2020-04-09] MEDS ORDERED: Glycopyrrolate 0.2 MG/ML 2 ML SDV IVPUSH ONE (07:30)
[2020-04-09] MEDS ORDERED: MVI, Adult with Vitamin K 10 ML, Thiamine 200 MG, Chromium/Copper/Mang/Selen/Zn 1 ML in... IV ONE ×4 (08:00)
[2020-04-09 09:58] VITALS: BP 120/81; PULSE 75
--- NOTE | 2020-04-09 11:36 | OR ---
DATE OF PROCEDURE: 04/09/2020 SURGEON: Fredi Longoria MD PROCEDURE: EGD with dilation, 30-Mongolian balloon dilation #2. COMPLICATIONS: None. DISH CARRIER: None. FINDINGS: 95% narrowing of esophagojejunostomy. RISKS: Risks, benefits, alternatives, and limitations including, but not limited to infection, bleeding, and perforation along with requirement for repeat procedure were explained to the patient who wished to proceed. PROCEDURE IN DETAIL: The patient was placed in left lateral decubitus position. The EGD scope was introduced and advanced atraumatically to the anastomosis. This was noted to be significantly strictured. This was not able to be transversed with the scope. Therefore, using fluoroscopic guidance, the balloon was advanced beyond the anastomosis. This was then dilated x2 using a 30-Mongolian balloon. The scope was then able to be passed through the anastomosis. No evidence of enterotomy injury or anything abnormal was noted in the distal aspect. The patient tolerated the procedure well. Fredi Longoria MD /[id number]
== END 2020-04-09 10:25 | disposition home or self-care (01) ==
LOC: JP.SDS 06:30
PROVIDERS: ATTEND Surgery
DX: K91.89 Other postprocedural complications and disorders of digestive system (principal); K22.2 Esophageal obstruction; Z88.1 Allergy status to other antibiotic agents
CPT/HCPCS: 43249; 81025; J2250; J2704; J3010; J3411; J3420; J3490; J7120

== ENCOUNTER 2020-04-19 09:52 | Day surgery (SDC) | payer MEDICAID ==
[~2020-04-19 09:52] MED LIST changes: -Bupivacaine 0.5% 50 ML MDV ONE; +Cyanocobalamin (Vitamin B12) 1,000 MCG/ML SDV IM ONE; -Dexamethasone 4 MG/ML SDV ONE; -Glycopyrrolate 0.2 MG/ML 5 ML MDV ONE; -Ketamine 50 MG in Sodium Chloride 0.9% 49.5 ML IV SCH; -Ketamine 500 MG/5 ML MDV IV SCH; +Lactated Ringers 1,000 ML IV SCH; -Lidocaine 1% with EPINEPHrine 1:100,000 50 ML MDV ONE; -Magnesium Sulfate 3.5 GM in Sodium Chloride 0.9% 100 ML IV SCH; -Magnesium Sulfate 5.5 GM in Sodium Chloride 0.9% 250 ML IV ONE; -Neostigmine Methylsulfate 1 MG/ML 5 ML Syringe ONE; -Ondansetron 4 MG/2 ML SDV ONE; -Propofol 200 MG/20 ML SDV ONE; -Rocuronium 50 MG/5 ML Vial ONE; -Succinylcholine 200 MG/10 ML MDV ONE; -fentaNYL 250 MCG/5 ML SDV ONE
[2020-04-19] MEDS ORDERED: MVI, Adult with Vitamin K 10 ML, Thiamine 200 MG, Chromium/Copper/Mang/Selen/Zn 1 ML in... IV ONE ×4 (10:30)
[2020-04-19] MEDS ORDERED: Glycopyrrolate 0.2 MG/ML 2 ML SDV IVPUSH ONE (10:30)
[2020-04-19] MEDS ORDERED: Midazolam 1 MG/ML 2 ML SDV ONE (10:49)
[2020-04-19] MEDS ORDERED: Propofol 200 MG/20 ML SDV ONE (10:49)
[2020-04-19] MEDS ORDERED: fentaNYL 100 MCG/2 ML SDV ONE (10:49)
[2020-04-19] MEDS ORDERED: Ondansetron 4 MG/2 ML SDV ONE (10:50)
[2020-04-19] MEDS ORDERED: Dexamethasone 4 MG/ML SDV ONE (10:50)
[2020-04-19 13:08] VITALS: BP 123/65; PULSE 88
--- NOTE | 2020-04-20 09:10 | OR ---
DATE OF PROCEDURE: 04/19/2020 SURGEON: Benton Ball MD PREOPERATIVE DIAGNOSIS: Probable stricture at esophagojejunostomy. POSTOPERATIVE DIAGNOSIS: Moderate stricture at esophagojejunostomy. OPERATIVE PROCEDURE: Upper GI endoscopy with dilation of esophagojejunostomy (63332). ANESTHESIA: IV sedation. INDICATIONS FOR PROCEDURE: The patient presents once again with symptoms of stricturing at esophagojejunostomy. After preoperative evaluation and discussion, she wished to proceed with an upper GI endoscopy with dilation as indicated. Potential risks including bleeding and perforation were discussed, and the patient wishes to proceed. DETAILS OF PROCEDURE: The patient was taken to the operating room and placed in a left lateral decubitus position. IV sedation was administered, after which the upper GI endoscope was passed orally through the length of the esophagus and into the area of the esophagojejunostomy. No retained food or fluid was noted. The patient was noted to have a moderate stricture with 1 cm scope not quite able to be passed across the anastomosis. Using fluoroscopic surveillance, a Bard gastrointestinal balloon catheter was centered across the anastomosis and inflated to 36-Lao level 2. This was held in position for 1 minute, after which the balloon catheter was deflated and withdrawn. Scope easily passed through the anastomosis. No complications were noted. The patient tolerated the procedure well. The patient was taken to the recovery room in satisfactory condition. Benton Ball MD /[id number]
== END 2020-04-19 13:20 | disposition home or self-care (01) ==
LOC: JP.SDS 09:52
PROVIDERS: ATTEND Surgery
DX: K91.89 Other postprocedural complications and disorders of digestive system (principal); K22.2 Esophageal obstruction; J45.909 Unspecified asthma, uncomplicated; K21.9 Gastro-esophageal reflux disease without esophagitis; Z88.8 Allergy status to other drugs, medicaments and biological substances; Z01.812 Encounter for preprocedural laboratory examination; Z20.828 Contact with and (suspected) exposure to other viral communicable diseases
CPT/HCPCS: 43249; 81025; 87635; J1100; J2250; J2405; J2704; J3010; J3411; J3420; J3490; J7120; U0002

== ENCOUNTER 2020-05-09 07:25 | Day surgery (SDC) | payer MEDICAID ==
[~2020-05-09 07:25] MED LIST changes: -Cyanocobalamin (Vitamin B12) 1,000 MCG/ML SDV IM ONE; +Lactated Ringers 1,000 ML IV ONE; -Lactated Ringers 1,000 ML IV SCH
[2020-05-09] MEDS ORDERED: Lactated Ringers 1,000 ML IV ONE (08:00)
[2020-05-09] MEDS ORDERED: Midazolam 1 MG/ML 2 ML SDV ONE (08:04)
[2020-05-09] MEDS ORDERED: fentaNYL 100 MCG/2 ML SDV ONE (08:04)
[2020-05-09] MEDS ORDERED: Propofol 200 MG/20 ML SDV ONE (08:04)
[2020-05-09] MEDS: Cyanocobalamin (Vitamin B12) 1,000 MCG/ML SDV IM ONE ×2 (08:12→08:33)
[2020-05-09] MEDS ORDERED: Glycopyrrolate 0.2 MG/ML 2 ML SDV IVPUSH ONE (08:30)
[2020-05-09] MEDS ORDERED: MVI, Adult with Vitamin K 10 ML, Chromium/Copper/Mang/Selen/Zn 1 ML, Thiamine 200 MG in... IV ONE ×4 (09:00)
[2020-05-09] MEDS ORDERED: Dexamethasone 4 MG/ML SDV ONE (09:12)
[2020-05-09 10:18] VITALS: BP 94/48; PULSE 76
--- NOTE | 2020-05-16 08:38 | OR ---
DATE OF PROCEDURE: 05/09/2020 SURGEON: Benton Ball MD PREOPERATIVE DIAGNOSIS: Probable stricture at esophagojejunostomy. POSTOPERATIVE DIAGNOSIS: Stricture at esophagojejunostomy. OPERATIVE PROCEDURE: Upper GI endoscopy with dilation of esophagojejunostomy (07945). ANESTHESIA: IV sedation. INDICATIONS FOR PROCEDURE: The patient presents with some symptoms suggestive of recurrent stricturing at esophagojejunostomy. Plan is to proceed with upper GI endoscopy with dilation as indicated. Potential risks including bleeding, perforation were discussed, and the patient wishes to proceed. DETAILS OF PROCEDURE: The patient was taken to the operating room, placed in a left lateral decubitus position. IV sedation was administered, after which the upper GI endoscope was passed orally through the length of the esophagus and into the level of the esophagojejunostomy. No retained food or fluid was noted. The patient was noted to have moderate stricture with 1 cm scope not quite being able to be passed through the anastomosis. Bard gastrointestinal catheter was centered across the anastomosis and inflated to 36-Citizen Of [place] size level 3 and held there for 1 minute. Balloon catheter was deflated and withdrawn. There appeared to be satisfactory dilation with the scope being able to be passed through the anastomosis. No complications were evident. The procedure was then concluded. The patient was taken to the recovery room in satisfactory condition. One additional note is that we obtained some labs on the patient today, her potassium is very low and she will be given KCl 20 mEq a day x10 days #10 and she will be set up for followup with Karla Bella on 05/24/2020 with a BMP to be obtained at that time. Otherwise, she will be following if she feels that she is getting recurrent stricturing and anemia in the interim. Benton Ball MD /[id number]
== END 2020-05-09 10:35 | disposition home or self-care (01) ==
LOC: JP.SDS 07:25
PROVIDERS: ATTEND Surgery
DX: K91.89 Other postprocedural complications and disorders of digestive system (principal); K22.2 Esophageal obstruction; E66.9 Obesity, unspecified; Z68.33 Body mass index [BMI] 33.0-33.9, adult
CPT/HCPCS: 36415; 80053; 81025; 82728; 83735; 84100; 85027; J1100; J2250; J2704; J3010; J3411; J3420; J3490; J7120

== ENCOUNTER 2020-05-20 07:36 | Day surgery (SDC) | payer MEDICAID ==
[2020-05-20] MEDS ORDERED: Midazolam 1 MG/ML 2 ML SDV ONE (07:59)
[2020-05-20] MEDS ORDERED: Propofol 200 MG/20 ML SDV ONE (07:59)
[2020-05-20] MEDS ORDERED: fentaNYL 100 MCG/2 ML SDV ONE (07:59)
[2020-05-20] MEDS ORDERED: Lactated Ringers 1,000 ML IV ONE ×2 (08:00→10:00)
[2020-05-20] MEDS ORDERED: Cyanocobalamin (Vitamin B12) 1,000 MCG/ML SDV IM ONE (08:15)
[2020-05-20] MEDS ORDERED: Glycopyrrolate 0.2 MG/ML 2 ML SDV IVPUSH ONE (08:45)
[2020-05-20] MEDS ORDERED: MVI, Adult with Vitamin K 10 ML, Thiamine 200 MG, Chromium/Copper/Mang/Selen/Zn 1 ML in... IV ONE ×4 (09:30)
[2020-05-20 10:38] VITALS: BP 119/79; PULSE 65
--- NOTE | 2020-05-30 11:51 | OR ---
DATE OF PROCEDURE: 05/20/2020 SURGEON: Benton Ball MD PREOPERATIVE DIAGNOSIS: Probable stricture at esophagojejunostomy. POSTOPERATIVE DIAGNOSIS: Moderate stricture at esophagojejunostomy. OPERATIVE PROCEDURE: Upper GI endoscopy with dilation of esophagojejunostomy (05451). ANESTHESIA: IV sedation. INDICATIONS FOR PROCEDURE: The patient presents once again with some symptoms suggestive of stricturing at her esophagojejunal anastomosis. Plan is to proceed with upper GI endoscopy with dilation as indicated. Potential risks including bleeding and perforation were discussed, and the patient wishes to proceed. DETAILS OF PROCEDURE: The patient was taken to the operating room and placed in a left lateral decubitus position. IV sedation was administered after which the upper GI endoscope was passed orally through the length of the esophagus. At the esophagojejunostomy, the scope could not quite be passed through that anastomosis indicating moderate stricture. Bard gastrointestinal catheter was then centered across the anastomosis and inflated to 36- [place] size. This was held in position for 1 minute, after which Balloon catheter was deflated and withdrawn. Scope was easily passed through the anastomosis. No complications were noted, and the procedure was concluded. The patient was taken to the recovery room in satisfactory condition. Benton Ball MD /[id number]
== END 2020-05-20 10:47 | disposition home or self-care (01) ==
LOC: JP.SDS 07:36
PROVIDERS: ATTEND Surgery
DX: K91.89 Other postprocedural complications and disorders of digestive system (principal); K22.2 Esophageal obstruction; J45.909 Unspecified asthma, uncomplicated; K21.9 Gastro-esophageal reflux disease without esophagitis; Z88.1 Allergy status to other antibiotic agents
CPT/HCPCS: 43249; 81025; J2250; J2704; J3010; J3420; J3490; J7120

== ENCOUNTER 2020-06-03 07:58 | Day surgery (SDC) | payer MEDICAID ==
[~2020-06-03 07:58] MED LIST changes: -Lactated Ringers 1,000 ML IV ONE; +Midazolam 1 MG/ML 2 ML SDV ONE; +Propofol 200 MG/20 ML SDV ONE; +fentaNYL 100 MCG/2 ML SDV ONE
[2020-06-03] MEDS ORDERED: Cyanocobalamin (Vitamin B12) 1,000 MCG/ML SDV IM ONE (08:15)
[2020-06-03] MEDS ORDERED: Lactated Ringers 1,000 ML IV SCH (09:00)
[2020-06-03] MEDS ORDERED: Glycopyrrolate 0.2 MG/ML 2 ML SDV IVPUSH ONE (09:30)
[2020-06-03] MEDS ORDERED: COPPER IV ONE (10:00)
[2020-06-03] MEDS ORDERED: LACTATED RINGERS IV ONE (10:00)
[2020-06-03] MEDS ORDERED: SELENIUM IV ONE (10:00)
[2020-06-03] MEDS ORDERED: THIAMINE IV ONE (10:00)
[2020-06-03] MEDS ORDERED: MANGANESE IV ONE (10:00)
[2020-06-03] MEDS ORDERED: ZINC IV ONE (10:00)
[2020-06-03 11:15] VITALS: BP 110/65; PULSE 91
--- NOTE | 2020-06-20 13:38 | OR ---
DATE OF PROCEDURE: 06/03/2020 SURGEON: Benton Ball MD PREOPERATIVE DIAGNOSIS: Probable stricture at esophagojejunostomy. 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 OPERATIVE PROCEDURE: Upper gastrointestinal endoscopy with dilation of esophagojejunostomy (64909). ANESTHESIA: IV sedation. INDICATION FOR PROCEDURE: The patient presents once again with some symptoms suggestive of stricturing at her esophagojejunostomy. Plan is to proceed with upper GI endoscopy with dilation as indicated. Potential risks including bleeding and perforation were discussed, and the patient wishes to proceed. DETAILS OF PROCEDURE: The patient was taken to the operating room and placed in a left lateral decubitus position. IV sedation was administered, after which the upper GI endoscope was passed orally through the length of the esophagus and to the level of the esophagojejunal anastomosis. This was mildly strictured with the scope not being quite able to be passed through that area. Bard gastrointestinal catheter was then centered across the anastomosis and inflated to 45-Bhutanese size. This was held in position for 1 minute, after which the balloon catheter was deflated and withdrawn. Scope could easily be passed through the anastomosis. No complications were noted. The procedure was concluded. The patient was taken to the recovery room in satisfactory condition. Benton Ball MD /[id number]
== END 2020-06-03 12:30 | disposition home or self-care (01) ==
LOC: JP.SDS 07:58
PROVIDERS: ATTEND Surgery
DX: K91.89 Other postprocedural complications and disorders of digestive system (principal); K22.2 Esophageal obstruction; K21.9 Gastro-esophageal reflux disease without esophagitis; Z88.1 Allergy status to other antibiotic agents
CPT/HCPCS: 43249; 81025; J2250; J2704; J3010; J3411; J3420; J3490; J7120

== ENCOUNTER 2020-06-21 06:36 | Day surgery (SDC) | payer MEDICAID ==
[2020-06-21] MEDS ORDERED: Cyanocobalamin (Vitamin B12) 1,000 MCG/ML SDV IM ONE (07:00)
[2020-06-21] MEDS ORDERED: Lactated Ringers 1,000 ML IV SCH (07:00)
[2020-06-21] MEDS ORDERED: fentaNYL 100 MCG/2 ML SDV ONE (07:08)
[2020-06-21] MEDS ORDERED: Propofol 200 MG/20 ML SDV ONE (07:08)
[2020-06-21] MEDS ORDERED: Midazolam 1 MG/ML 2 ML SDV ONE (07:08)
[2020-06-21] MEDS ORDERED: Glycopyrrolate 0.2 MG/ML 2 ML SDV IVPUSH ONE (07:30)
[2020-06-21] MEDS ORDERED: MVI, Adult with Vitamin K 10 ML, Thiamine 200 MG, Chromium/Copper/Mang/Selen/Zn 1 ML in... IV ONE ×4 (08:15)
[2020-06-21 09:55] VITALS: BP 125/77; PULSE 65
--- NOTE | 2020-06-28 13:36 | OR ---
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 OPERATIVE PROCEDURE: Upper gastrointestinal endoscopy with dilation of esophagojejunostomy ([id number]). ANESTHESIA: IV sedation. INDICATION FOR PROCEDURE: This is a 24-year-old status post esophagogastrectomy with esophagojejunal anastomosis. She is having some strictures developed in this area and is undergoing upper endoscopy for some recurrent symptoms of stricturing. Potential risks including bleeding and perforation at the point of dilation were reviewed and the patient wishes to proceed. DETAILS OF PROCEDURE: The patient was taken to the operating room and placed in a left lateral decubitus position. IV sedation was administered, after which the upper GI endoscope was passed orally through the length of the esophagus and into the level of the esophagojejunal anastomosis. The 1 cm scope was not quite passed through the anastomosis. A Bard gastrointestinal catheter was centered across the anastomosis and inflated to 45- Maori size. This was held in position for 1 minute, after which the balloon catheter was deflated and withdrawn. Scope was then easily passed through the anastomosis. No complications were evident and the procedure then concluded. The patient was taken to the recovery room in satisfactory condition. Benton Ball MD /[id number]
== END 2020-06-21 11:15 | disposition home or self-care (01) ==
LOC: JP.SDS 06:36
PROVIDERS: ATTEND Surgery
DX: K91.89 Other postprocedural complications and disorders of digestive system (principal); K22.2 Esophageal obstruction; J45.909 Unspecified asthma, uncomplicated; K21.9 Gastro-esophageal reflux disease without esophagitis; Z88.1 Allergy status to other antibiotic agents
CPT/HCPCS: 81025; J2250; J2704; J3010; J3411; J3420; J3490; J7120

== ENCOUNTER 2020-06-23 12:57 | Inpatient (IN) | payer MEDICAID ==
--- NOTE | 2020-06-23 14:25 | CT ---
Abdomen Pelvis wo Cont CLINICAL HISTORY: Partial gastrectomy, chest and abdominal pain COMPARISON: May 2020. TECHNIQUE: Axial tomographic images are obtained from the dome of the diaphragm to the pubic symphysis without IV contrast enhancement. Oral contrast was used. The dosage reduction and iterative reconstruction techniques employed. FINDINGS: There is scattered free intraperitoneal air in the upper abdomen around the partial gastrectomy site. There is moderate fluid in the excluded portion of the stomach. The lung bases are clear. The liver shows diffuse fatty infiltration. The gallbladder has been removed. The spleen is upper limits of normal size. There is a small splenule in the hilum. The pancreas shows no mass or inflammatory change. The adrenal glands appear normal bilaterally. The kidneys show no stones or hydronephrosis. The aorta has a normal contour. There is no suspicious retroperitoneal adenopathy. The uterus measures 8.5 x 4.0 x 6.4 cm. There is some debris and air within the vaginal vault. This may be an expanded tampon. Right ovary measures 4.1 x 3.4 cm. No free fluid is seen. IMPRESSION: There are scattered collections of free intraperitoneal air in the left upper quadrant near a previous partial gastrectomy site. There is moderate fluid in the excluded portion of the stomach. Fatty infiltration the liver Dr. Ball was notified of these findings at the time of this dictation at 1:55 PM
[2020-06-23] MEDS ORDERED: HYDROmorphone 1 MG/ML Syringe IV PRN (15:51)
[2020-06-23] MEDS ORDERED: HYDROmorphone 0.5 MG/0.5 ML Syringe IVPUSH PRN (15:51)
[2020-06-23] MEDS ORDERED: Ondansetron 4 MG/2 ML SDV IVPUSH PRN (15:52)
[2020-06-23] MEDS ORDERED: Albuterol/Ipratropium 3.0-0.5 MG/3 ML Neb Soln INH PRN (15:53)
[2020-06-23] MEDS ORDERED: MVI, Adult with Vitamin K 10 ML, Zinc/Copper/Manganese/Selenium 1 ML in Lactated Ringer... IV ONE ×3 (16:30)
[2020-06-23] MEDS: Acetaminophen 500 MG Tab PO SCH ×2 (16:35→21:44)
[2020-06-23] MEDS: Levofloxacin/Dextrose 5%-Water 500 MG in Premix Bag 1 BAG IV SCH (16:56)
[2020-06-23] MEDS: Meropenem 500 MG in Sodium Chloride 0.9% 50 ML IV SCH ×2 (18:04→23:28)
[2020-06-23] MEDS: Pantoprazole 40 MG Vial IV SCH (18:05)
[2020-06-23] MEDS ORDERED: Dextrose 5%-Lactated Ringers 1,000 ML IV SCH (19:30)
[2020-06-23] MEDS: Albuterol/Ipratropium 3.0-0.5 MG/3 ML Neb Soln INH SCH (21:38)
[2020-06-23] MEDS: oxyCODONE 5 MG Tab PO PRN (21:43)
[2020-06-24] MEDS: Acetaminophen 500 MG Tab PO SCH ×4 (03:05→21:13)
[2020-06-24] MEDS: oxyCODONE 5 MG Tab PO PRN (03:05)
[2020-06-24] MEDS: Meropenem 500 MG in Sodium Chloride 0.9% 50 ML IV SCH ×3 (05:48→17:37)
[2020-06-24] MEDS: Albuterol/Ipratropium 3.0-0.5 MG/3 ML Neb Soln INH SCH ×4 (07:15→21:12)
[2020-06-24] MEDS ORDERED: HYDROmorphone 2 MG Tab PO PRN (07:18)
[2020-06-24] MEDS ORDERED: HYDROmorphone 0.5 MG/0.5 ML Syringe IVPUSH PRN (07:20)
[2020-06-24] MEDS ORDERED: HYDROmorphone 1 MG/ML Syringe IV PRN (07:20)
[2020-06-24] MEDS: Dextrose 5%-Lact Ringers w/KCl 1,000 ML IV SCH ×2 (07:45→22:05)
--- NOTE | 2020-06-24 08:16 | PCM.HP.2 ---
H&P History of Present Illness - General Date of Service: 06/24/20 Admit Problem/Dx: Admission Diagnosis/Problem Admission Diagnosis/Problem Nausea and vomiting Source of Information: Patient History Limitations: Reports: No Limitations - History of Present Illness Initial Comments - Free Text/Narative: Barbara had an Upper endoscopy on 06/21/2020 and developed nausea and vomiting with increasing mid epigastric pain. A CT scan was obtained yesterday and revealed a small leak. She was admitted for fluids and IV antibiotics. Location: Reports: Abdomen Quality: Reports: Dull, Pressure Severity: Moderate Improves with: Reports: Medication Worsens with: Reports: None Associated Symptoms: Reports: Nausea/Vomiting Chest Pain Score (Numeric/FACES): 3 - Related Data Allergies/Adverse Reactions: Allergies Allergy/AdvReac Type Severity Reaction Status Date / Time amoxicillin [Amoxicillin] Allergy Hives Verified 06/21/20 06:52 Home Medications: Home Meds Rizatriptan [Maxalt HIGH RISK OB] 10 mg PO ASDIRECTED PRN 01/29/20 [History] SUMAtriptan Succinate [Sumatriptan Succinate] 6 mg SUBCUT DAILY PRN 01/29/20 [History] Albuterol Sulfate [Albuterol Sulfate Hfa] 1 - 2 puff INH Q4H PRN 03/04/20 [History] Hyoscyamine Sulfate [Levsin-Sl] 0.125 mg SL Q4H PRN 03/04/20 [History] Prochlorperazine [Compazine] 10 mg PO Q6H PRN 04/09/20 [History] Acetaminophen [Tylenol Extra Strength] 1,000 mg PO Q8H PRN 05/09/20 [History] Pantoprazole Sodium [Protonix] 20 mg PO BID 06/21/20 [History] Past Medical History HEENT History: Reports: Other (See Below) Other HEENT History: bilateral ear tubes, hx of perforation Cardiovascular History: Reports: Heart Murmur Other Cardiovascular History: couldn't hear it anymore after turned 12 Respiratory History: Reports: Asthma, Pneumonia, Recurrent Gastrointestinal History: Reports: GERD Genitourinary History: Reports: None CLAIM AGENT History: Reports: Musculoskeletal History: Reports: Fracture Neurological History: Reports: Concussion, Migraines Psychiatric History: Reports: Depression Endocrine/Metabolic History: Reports: Obesity/BMI 30+ Hematologic History: Reports: None Immunologic History: Reports: None Oncologic (Cancer) History: Reports: None Dermatologic History: Reports: None - Infectious Disease History Infectious Disease History: Reports: Chicken Pox - Past Surgical History HEENT Surgical History: Reports: Adenoidectomy, Oral Surgery, Tonsillectomy Other HEENT Surgeries/Procedures: wisdom teeth Cardiovascular Surgical History: Reports: None Respiratory Surgical History: Reports: None GI Surgical History: Reports: Appendectomy, Bariatric Procedure, Cholecystectomy, EGD, Esophageal Dilatation, Other (See Below) Other GI Surgeries/Procedures: partial gastrectomy of 02/04/2020 Female Surgical History: Reports: Section Endocrine Surgical History: Reports: None Neurological Surgical History: Reports: None Musculoskeletal Surgical History: Reports: Other (See Below) Other Musculoskeletal Surgeries/Procedures:: right elbow surgery Dermatological Surgical History: Reports: None Social & Family History - Family History Family Medical History: No Pertinent Family History Cardiac: Reports: Other (See Below) Other Cardiac Family History: mother has been having heart issues lately - Tobacco Use Tobacco Use Status *Q: Never Tobacco User Second Hand Smoke Exposure: No - Caffeine Use Caffeine Use: Reports: None - Recreational Drug Use Recreational Drug Use: No H&P Review of Systems - Review of Systems: Review Of Systems: Comprehensive ROS is negative, except as noted in HPI. Exam - Exam Exam: See Below - Vital Signs Vital Signs: Last Vital Signs Temp 97.7 F 06/24/20 06:00 Pulse 60 06/24/20 06:00 Resp 16 06/24/20 06:00 BP 115/71 06/24/20 06:00 Pulse Ox 97 06/24/20 06:00 Weight: 179 lb 8 oz - Exam Quality Assessment: DVT Prophylaxis General: Alert, Oriented, Cooperative HEENT: PERRLA, Conjunctiva Clear Neck: Supple, Trachea Midline Lungs: Clear to Auscultation, Normal Respiratory Effort Cardiovascular: Regular Rate, Regular Rhythm GI/Abdominal Exam: Normal Bowel Sounds, Soft, Non-Tender (Female) Exam: Deferred Rectal (Female) Exam: Deferred Back Exam: Normal Inspection, Full Range of Motion Extremities: Normal Inspection, Normal Range of Motion, No Pedal Edema Skin: Warm, Dry, Intact Neurological: Cranial Nerves Intact Neuro Extensive - Mental Status: Alert, Oriented x3, Normal Mood/Affect Neuro Extensive - Motor, Sensory, Reflexes: CN II-XII Intact, Normal Gait Psychiatric: Alert, Normal Affect, Normal Mood - Patient Data Lab Results Last 24 hrs: Laboratory Results - last 24 hr 06/23/20 06/23/20 06/24/20 Range/Units 15:50 15:50 05:54 WBC 5.3 3.4 L (4.5-11.0) K/uL RBC 4.82 3.83 (3.30-5.50) M/uL Hgb 13.3 10.6 L D (12.0-15.0) g/dL Hct 40.8 33.1 L (36.0-48.0) % MCV 85 86 (80-98) fL MCH 28 28 (27-31) pg MCHC 33 32 (32-36) % Plt Count 157 134 L (150-400) K/uL Sodium 139 L (140-148) mmol/L Potassium 3.5 L (3.6-5.2) mmol/L Chloride 104 (100-108) mmol/L Carbon Dioxide 26 (21-32) mmol/L Anion Gap 12.5 (5.0-14.0) mmol/L BUN 4 L (7-18) mg/dL Creatinine 0.6 (0.6-1.0) mg/dL Est Cr Clr Drug Dosing TNP Estimated GFR (MDRD) > 60 (>60) Glucose 85 (74-106) mg/dL Calcium 8.6 (8.5-10.1) mg/dL Phosphorus 3.7 (2.5-4.9) mg/dL Magnesium 1.9 (1.8-2.4) mg/dL Total Bilirubin 1.0 (0.2-1.0) mg/dL AST 54 H D (15-37) U/L ALT 53 D (12-78) U/L Alkaline Phosphatase 81 (46-116) U/L Total Protein 6.3 L (6.4-8.2) g/dL Albumin 2.8 L (3.4-5.0) g/dL Globulin 3.5 (2.3-3.5) g/dL Albumin/Globulin Ratio 0.8 L (1.2-2.2) 06/24/20 Range/Units 05:54 WBC (4.5-11.0) K/uL RBC (3.30-5.50) M/uL Hgb (12.0-15.0) g/dL Hct (36.0-48.0) % MCV (80-98) fL MCH (27-31) pg MCHC (32-36) % Plt Count (150-400) K/uL Sodium 141 (140-148) mmol/L Potassium 3.4 L (3.6-5.2) mmol/L Chloride 107 (100-108) mmol/L Carbon Dioxide 27 (21-32) mmol/L Anion Gap 10.4 (5.0-14.0) mmol/L BUN 5 L (7-18) mg/dL Creatinine 0.6 (0.6-1.0) mg/dL Est Cr Clr Drug Dosing 124.85 Estimated GFR (MDRD) > 60 (>60) Glucose 106 (74-106) mg/dL Calcium 8.0 L (8.5-10.1) mg/dL Phosphorus 4.5 (2.5-4.9) mg/dL Magnesium 1.9 (1.8-2.4) mg/dL Total Bilirubin 0.6 (0.2-1.0) mg/dL AST 40 H (15-37) U/L ALT 41 (12-78) U/L Alkaline Phosphatase 64 (46-116) U/L Total Protein 4.9 L (6.4-8.2) g/dL Albumin 2.1 L (3.4-5.0) g/dL Globulin 2.8 (2.3-3.5) g/dL Albumin/Globulin Ratio 0.8 L (1.2-2.2) Result Diagrams: 06/24/20 05:54 06/24/20 05:54 Sepsis Event Note - Evaluation Sepsis Screening Result: No Definite Risk - Focused Exam Vital Signs: Vital Signs Temp Pulse Resp BP Pulse Ox 06/24/20 06:00 97.7 F 60 16 115/71 97 06/24/20 02:53 97.7 F 74 16 107/54 L 97 06/23/20 23:00 98.5 F 87 16 127/58 L 98 Problem List Initiated/Reviewed/Updated: Yes Orders Last 24hrs: Active Orders 24 hr Category Date Time Status Admission Status [Patient Status] [ADT] Routine ADT 06/23/20 15:32 Active Ambulate [RC] ASDIRECTED Care 06/23/20 15:34 Active Head of Bed Elevation [RC] CONTINUOUS Care 06/23/20 15:34 Active RT Incentive Spirometry [RC] ASDIRECTED Care 06/23/20 15:34 Active Turn, Cough, Deep Breathe [RC] Q1HWA Care 06/23/20 15:34 Active Up to Chair [RC] TIDMEALS Care 06/23/20 15:34 Active Respiratory Care Assess and Treatment [CONS] Routine Cons 06/23/20 15:34 Active Bariatric Diet [DIET] Diet 06/24/20 Breakfast Active CBC W/O DIFF,HEMOGRAM [HEME] Timed Lab 06/25/20 04:00 Ordered COMPREHENSIVE METABOLIC PN,CMP [CHEM] Timed Lab 06/25/20 04:00 Ordered MAGNESIUM [CHEM] Timed Lab 06/25/20 04:00 Ordered PHOSPHORUS [CHEM] Timed Lab 06/25/20 04:00 Ordered Acetaminophen [Tylenol Extra Strength] Med 06/23/20 16:00 Active 1,000 mg PO Q6H Albumin Human [Albumin 25%] Med 06/24/20 09:00 Active 25 gm in 100 ml IV ONETIME Albuterol/Ipratropium [DuoNeb 3.0-0.5 MG/3 ML] Med 06/23/20 15:53 Active 3 ml INH ASDIRECTED PRN Albuterol/Ipratropium [DuoNeb 3.0-0.5 MG/3 ML] Med 06/23/20 21:00 Active 3 ml INH QIDRT Dextrose 5%-Lact Ringers w/KCl [D5 LR with 20 mEq KCl] Med 06/24/20 07:15 Active 1,000 ml IV ASDIRECTED HYDROmorphone [Dilaudid] Med 06/24/20 07:20 Active 0.5 mg IVPUSH Q4H PRN HYDROmorphone [Dilaudid] Med 06/24/20 07:20 Active 1 mg IV Q4H PRN HYDROmorphone [Dilaudid] Med 06/24/20 07:18 Active 2 mg PO Q6H PRN Levofloxacin/Dextrose 5%-Water [Levaquin in D5W 500 MG/ Med 06/23/20 16:30 Active 100 ML] 500 mg Premix Bag 1 bag IV Q24H Meropenem [Merrem] 500 mg Med 06/23/20 18:00 Active Sodium Chloride 0.9% [Normal Saline] 50 ml IV Q6H Ondansetron [Zofran] Med 06/23/20 15:52 Active 4 mg IVPUSH Q4H PRN Pantoprazole [ProTONIX IV] Med 06/23/20 18:00 Active 40 mg IV Q24H Prochlorperazine [Compazine] Med 06/24/20 08:09 Ordered 10 mg PO Q6H PRN Oral Care [OM.PC] BID Oth 06/23/20 15:45 Ordered Oral Care [OM.PC] BID Oth 06/24/20 15:45 Ordered Medication Orders Acetaminophen (Tylenol Extra Strength) 1,000 mg PO Q6H [facility] Last Admin: 06/24/20 03:05 Dose: 1,000 mg Documented by: Admin: 06/23/20 21:44 Dose: 1,000 mg Documented by: Admin: 06/23/20 16:35 Dose: 1,000 mg Documented by: JOSE MANUEL Albuterol/Ipratropium (Duoneb 3.0-0.5 Mg/3 Ml) 3 ml INH QIDRT [facility] Last Admin: 06/24/20 07:15 Dose: 3 ml Documented by: JOSE GUADALUPE Admin: 06/23/20 21:38 Dose: 3 ml Documented by: UNRULY Albuterol/Ipratropium (Duoneb 3.0-0.5 Mg/3 Ml) 3 ml INH ASDIRECTED PRN PRN Reason: Shortness of Breath Hydromorphone HCl (Dilaudid) 0.5 mg IVPUSH Q4H PRN PRN Reason: MODERATE PAIN Last Admin: 06/24/20 07:39 Dose: 0.5 mg Documented by: BRENNEN Hydromorphone HCl (Dilaudid) 1 mg IV Q4H PRN PRN Reason: SEVERE PAIN Hydromorphone HCl (Dilaudid) 2 mg PO Q6H PRN PRN Reason: Pain Levofloxacin/Dextrose 500 mg/ (Premix) 100 mls @ 100 mls/hr IV Q24H [facility] Last Admin: 06/23/20 16:56 Dose: 100 mls/hr Documented by: JOSE MANUEL Meropenem 500 mg/ Sodium (Chloride) 50 mls @ 100 mls/hr IV Q6H [facility] Last Admin: 06/24/20 05:48 Dose: 100 mls/hr Documented by: Admin: 06/23/20 23:28 Dose: 100 mls/hr Documented by: Admin: 06/23/20 18:04 Dose: 100 mls/hr Documented by: JOSE MANUEL Albumin Human (Albumin 25%) 25 gm in 100 mls @ 50 mls/hr IV ONETIME ONE Stop: 06/24/20 10:59 Potassium Cl/Dextrose/Lact Ringer's (D5 Lr With 20 Meq Kcl) 1,000 mls @ 100 mls/hr IV ASDIRECTED [facility] Last Admin: 06/24/20 07:45 Dose: 100 mls/hr Documented by: BRENNEN Ondansetron HCl (Zofran) 4 mg IVPUSH Q4H PRN PRN Reason: Nausea Pantoprazole Sodium (Protonix Iv) 40 mg IV Q24H [facility] Last Admin: 06/23/20 18:05 Dose: 40 mg Documented by: JOSE MANUEL Prochlorperazine Maleate (Compazine) 10 mg PO Q6H PRN PRN Reason: Nausea/Vomiting Assessment/Plan Comment:: Leak at Plan: See orders Continue IV Antibiotics Plan discharge in AM Karla SAWANT CP - Mortality Measure Prognosis:: Good
--- NOTE | 2020-06-24 08:22 | PCM.SN.2 ---
- Free Text/Narrative Note: Assessment: Scattered Collections of free intraperitoneal air in left upper quadrant near partial gastrectomy suture line.
[2020-06-24] MEDS: Prochlorperazine 10 MG Tab PO PRN (10:11)
[2020-06-24] MEDS: HYDROmorphone 2 MG Tab PO PRN ×2 (15:43→19:54)
[2020-06-24] MEDS: Levofloxacin/Dextrose 5%-Water 500 MG in Premix Bag 1 BAG IV SCH (15:46)
[2020-06-24] MEDS: Pantoprazole 40 MG Vial IV SCH (17:32)
[2020-06-25] MEDS: Meropenem 500 MG in Sodium Chloride 0.9% 50 ML IV SCH ×2 (00:01→05:14)
[2020-06-25] MEDS: HYDROmorphone 2 MG Tab PO PRN ×3 (00:54→09:57)
[2020-06-25] MEDS: Acetaminophen 500 MG Tab PO SCH ×2 (04:31→09:55)
[2020-06-25] MEDS: Prochlorperazine 10 MG Tab PO PRN (04:33)
[2020-06-25] MEDS: Albuterol/Ipratropium 3.0-0.5 MG/3 ML Neb Soln INH SCH ×2 (07:18→10:54)
[2020-06-25] MEDS ORDERED: Clindamycin HCl 150 MG Cap PO SCH (09:00)
[2020-06-25 09:08] VITALS: BP 127/58; PULSE 56
--- NOTE | 2020-06-25 11:28 | DISCH ---
ADMISSION DIAGNOSES: 1. Abdominal pain. 2. Gastric anastomotic leak. 3. Status post partial gastrectomy. 4. Unspecified surgical malabsorption. 5. B12 deficiency. 6. Vitamin D deficiency. 7. Migraine headaches. DISCHARGE DIAGNOSIS: Status post gastric anastomotic leak. HISTORY: Barbara Recio is a 24-year-old female who had an upper endoscopy on 06/21/2020. She developed increasing upper mid epigastric and chest pain associated with nausea and vomiting. She had a CT scan on 06/23/2020, which revealed scattered collections of free intraperitoneal air in the left upper quadrant near previous partial gastrectomy site. There is moderate fluid in the excluded portion of the stomach and fatty infiltration of the liver. She was admitted to the hospital and was started on IV Dilaudid pain medication, levofloxacin IV, and meropenem IV for antibiotic therapy. Her vital signs remained stable. She remained afebrile on a step 2 diet without cereal. Oral intake 2690, urine output 2000. Her pain was well controlled. She was able to be discharged to home on 06/25/2020. REVIEW OF SYSTEMS: HEENT: Negative. NECK: Negative. HEART: No chest pain, shortness of breath, or fast or irregular heartbeat. LUNGS: No cough. ABDOMEN: Pain is controlled with Dilaudid 2 mg, has had no nausea or vomiting. Voiding without difficulty. EXTREMITIES: Negative for pain. There is no peripheral swelling. NEUROLOGIC: Intact. PSYCHIATRIC: Mood and affect appropriate. Remainder of review of systems negative for any pertinent positives and negatives. OBJECTIVE: GENERAL: Barbara Recio is a 24-year-old female. VITAL SIGNS: Height is 5 feet 4 inches, weight is 179 pounds. BMI is 30. TPR are 97.1, 56, and 16. Blood pressure 127/58. HEENT: Negative. NECK: Supple. HEART: Regular rate and rhythm. LUNGS: Clear. ABDOMEN: Soft, nontender. EXTREMITIES: Without peripheral edema. DISPOSITION: Discharged to home. CONDITION: Stable and improving. FOLLOWUP APPOINTMENT: with Benton Ball MD, on 06/30/2020 at 9 a.m. DISCHARGE MEDICATIONS: New home prescriptions: 1. Cleocin 450 mg oral q.6 hours #28. 2. Compazine 10 mg q.6 hours p.r.n. nausea and vomiting #30. 3. Dilaudid 2 mg q.6 hours p.r.n. pain #28. 4. Levaquin 500 mg oral daily. 5. Tylenol 1000 mg q.6 hours p.r.n. pain. 6. Culturelle 2 capsules b.i.d. for 1 month, 120 pills. Continued home medications: 1. Albuterol inhaler 1 to 2 puffs every 4 hours p.r.n. wheezing. 2. Levsin 0.125 mg sublingual every 4 hours p.r.n. esophageal spasms. 3. Protonix 20 mg oral twice daily. 4. Maxalt 10 mg oral as directed p.r.n. migraine headache. 5. Imitrex 4 mg subcutaneous daily p.r.n. migraine headaches. DISCHARGE INSTRUCTIONS: Diet: Step 2 gastric bypass diet with no cereal. Drink 8 to 10 glasses of water a day. Activity: As tolerated. May shower. Notify provider if any fever, increased pain, nausea, or vomiting. /[id number]
== END 2020-06-25 10:50 | disposition home or self-care (01) | DRG 394 ==
LOC: JP.CT 12:57 → JP.MS 15:23
PROVIDERS: ADMIT Surgery; ATTEND Surgery
DX: K91.89 Other postprocedural complications and disorders of digestive system (principal); K90.9 Intestinal malabsorption, unspecified; Y83.9 Surgical procedure, unspecified as the cause of abnormal reaction of the patient, or of later complication, without mention of misadventure at the time of the procedure; K21.9 Gastro-esophageal reflux disease without esophagitis; G43.909 Migraine, unspecified, not intractable, without status migrainosus; E66.9 Obesity, unspecified; E53.8 Deficiency of other specified B group vitamins; E55.9 Vitamin D deficiency, unspecified; K76.0 Fatty (change of) liver, not elsewhere classified; Z90.89 Acquired absence of other organs; Z87.01 Personal history of pneumonia (recurrent); Z79.899 Other long term (current) drug therapy; Z98.84 Bariatric surgery status; Z90.49 Acquired absence of other specified parts of digestive tract; Z88.0 Allergy status to penicillin; Z88.1 Allergy status to other antibiotic agents; Z68.31 Body mass index [BMI] 31.0-31.9, adult; Z98.890 Other specified postprocedural states
CPT/HCPCS: 36415; 74176; 74176-26; 80053; 83735; 84100; 85027; 94640; A9270-GY; C9113; J1170; J1956; J2185; J3480; J7050; J7120; J7121; J7620-GY; P9047; Q0164

== ENCOUNTER 2020-07-22 06:03 | Day surgery (SDC) | payer MEDICAID ==
[~2020-07-22 06:03] MED LIST changes: +Cyanocobalamin (Vitamin B12) 1,000 MCG/ML SDV IM ONE; -Midazolam 1 MG/ML 2 ML SDV ONE; -Propofol 200 MG/20 ML SDV ONE; -fentaNYL 100 MCG/2 ML SDV ONE
[2020-07-22] MEDS ORDERED: Lactated Ringers 1,000 ML IV ONE (07:00)
[2020-07-22] MEDS ORDERED: fentaNYL 100 MCG/2 ML SDV ONE (07:08)
[2020-07-22] MEDS ORDERED: Midazolam 1 MG/ML 2 ML SDV ONE (07:08)
[2020-07-22] MEDS ORDERED: Propofol 200 MG/20 ML SDV ONE (07:08)
[2020-07-22] MEDS ORDERED: Glycopyrrolate 0.2 MG/ML 2 ML SDV IVPUSH ONE (07:15)
[2020-07-22] MEDS ORDERED: MVI, Adult with Vitamin K 10 ML, Thiamine 200 MG, Zinc/Copper/Manganese/Selenium 1 ML i... IV ONE ×4 (08:00)
[2020-07-22 08:40] VITALS: BP 96/60; PULSE 77
--- NOTE | 2020-07-25 19:48 | OR ---
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 OPERATIVE PROCEDURE: Upper gastrointestinal endoscopy with dilation of esophagojejunostomy ([id number]). ANESTHESIA: IV sedation. INDICATIONS FOR PROCEDURE: This is a 24-year-old status post esophagogastrectomy with esophagojejunal anastomosis who presents now with some recurrent symptoms of stricturing at esophagojejunostomy. Of note, the last dilation occurred in what appeared to be an uncomplicated manner, but did result in a perforation. This resulted in some air around the esophagojejunostomy on the CT scan and was treated nonoperatively with antibiotics. The plan was to proceed with upper GI endoscopy with dilation of esophagojejunostomy if indicated. Potential risks including bleeding and perforation were discussed and the patient wishes to proceed. DETAILS OF PROCEDURE: The patient was taken to the operating room and placed in a left lateral decubitus position. IV sedation was administered after which the upper GI endoscope was passed orally through the length of the esophagus and into the area of the esophagojejunostomy. The 1 cm scope could be passed through the anastomosis indicating a relatively mild stricture. There was no significant gross inflammation at the mucosal level. Bard gastrointestinal balloon catheter was then centered across the anastomosis and inflated to 45-Macedonian size at level 1. Of note, this was a less aggressive dilation than previously occurred. Upon removal of the dilator, there was a small amount of heme indicating some degree of dilation, but relatively mild injury pattern in terms of typical dilation. The scope was then withdrawn, the procedure concluded. The patient was taken to the recovery room in satisfactory condition. Benton Ball MD /[id number]
== END 2020-07-22 09:55 | disposition home or self-care (01) ==
LOC: JP.SDS 06:03
PROVIDERS: ATTEND Surgery
DX: K91.89 Other postprocedural complications and disorders of digestive system (principal); K90.9 Intestinal malabsorption, unspecified; E66.9 Obesity, unspecified; K21.9 Gastro-esophageal reflux disease without esophagitis; J45.909 Unspecified asthma, uncomplicated; Z98.84 Bariatric surgery status; Z98.0 Intestinal bypass and anastomosis status; Z90.49 Acquired absence of other specified parts of digestive tract; Z87.09 Personal history of other diseases of the respiratory system; Z88.0 Allergy status to penicillin; Z68.30 Body mass index [BMI] 30.0-30.9, adult
CPT/HCPCS: 43249; 81025; J2250; J2704; J3010; J3411; J3420; J3490; J7120

== ENCOUNTER 2020-07-23 11:05 | Inpatient (IN) | payer MEDICAID ==
--- NOTE | 2020-07-23 11:20 | EDM.PDOC ---
ED HPI GENERAL MEDICAL PROBLEM - General Chief Complaint: Gastrointestinal Problem Stated Complaint: PAIN AFTER EGD Time Seen by Provider: 07/23/20 11:18 Source of Information: Reports: Patient History Limitations: Reports: No Limitations - History of Present Illness INITIAL COMMENTS - FREE TEXT/NARRATIVE: Patient presents status post EGD by Dr. Caldwell 1 day ago for concerns of " perforation". Patient notes approximately 1 month ago esophageal perforation treated this hospital with IV antibiotics in 3 days as an inpatient. She is now status post EGD yesterday for a "narrow" esophagus with reported dilation yesterday. She felt well after procedure but last night after eating and drinking normally and since approximately 3 am this morning (8 hours ago) she has had constant mild central nonradiating chest pain that is worse if she yawns. Patient denies any back pain, abdominal pain, diarrhea. She reports having a negative test prior to procedure. Patient is had no runny nose, sore throat, cough, change in taste or smell. No diarrhea or Covid exposures. Not on blood thinners. No calf pain hemoptysis. No pain with inspiration. No voice change. Onset: Today Location: Reports: Chest Quality: Reports: Other Severity: Mild Improves with: Reports: None Worsens with: Reports: Other Context: Reports: Other Associated Symptoms: Reports: No Other Symptoms - Related Data Allergies Allergy/AdvReac Type Severity Reaction Status Date / Time amoxicillin [Amoxicillin] Allergy Hives Verified 07/23/20 11:18 Home Meds: Home Meds Rizatriptan [Maxalt ELEMENTARY SUBSTITUTE TEACHER] 10 mg PO ASDIRECTED PRN 01/29/20 [History] SUMAtriptan Succinate [Sumatriptan Succinate] 6 mg SUBCUT DAILY PRN 01/29/20 [History] Albuterol Sulfate [Albuterol Sulfate Hfa] 1 - 2 puff INH Q4H PRN 03/04/20 [History] Hyoscyamine Sulfate [Levsin-Sl] 0.125 mg SL Q4H PRN 03/04/20 [History] Pantoprazole Sodium [Protonix] 40 mg PO BID 06/21/20 [History] Acetaminophen [Tylenol Extra Strength] 1,000 mg PO Q6H tablet 06/25/20 [Rx] HYDROmorphone [Dilaudid] 2 mg PO Q6HR #28 tablet 06/25/20 [Rx] Prochlorperazine [Compazine] 10 mg PO Q6H PRN #30 tablet 06/25/20 [Rx] Past Medical History HEENT History: Reports: Other (See Below) Other HEENT History: bilateral ear tubes, hx of perforation Cardiovascular History: Reports: Heart Murmur Other Cardiovascular History: couldn't hear it anymore after turned 12 Respiratory History: Reports: Asthma, Pneumonia, Recurrent Gastrointestinal History: Reports: GERD Genitourinary History: Reports: None MUSIC VIDEO DIRECTOR History: Reports: Musculoskeletal History: Reports: Fracture Neurological History: Reports: Concussion, Migraines Psychiatric History: Reports: Depression Endocrine/Metabolic History: Reports: Obesity/BMI 30+ Hematologic History: Reports: None Immunologic History: Reports: None Oncologic (Cancer) History: Reports: None Dermatologic History: Reports: None - Infectious Disease History Infectious Disease History: Reports: Chicken Pox, Novel Coronavirus - Past Surgical History HEENT Surgical History: Reports: Adenoidectomy, Oral Surgery, Tonsillectomy Other HEENT Surgeries/Procedures: wisdom teeth Cardiovascular Surgical History: Reports: None Respiratory Surgical History: Reports: None GI Surgical History: Reports: Appendectomy, Bariatric Procedure, Cholecystectomy, EGD, Esophageal Dilatation, Other (See Below) Other GI Surgeries/Procedures: partial gastrectomy of 02/04/2020 Female Surgical History: Reports: Section Endocrine Surgical History: Reports: None Neurological Surgical History: Reports: None Musculoskeletal Surgical History: Reports: Other (See Below) Other Musculoskeletal Surgeries/Procedures:: right elbow surgery Dermatological Surgical History: Reports: None Social & Family History - Family History Family Medical History: No Pertinent Family History Cardiac: Reports: Other (See Below) Other Cardiac Family History: mother has been having heart issues lately - Caffeine Use Caffeine Use: Reports: None ED ROS GENERAL - Review of Systems Review Of Systems: See Below Constitutional: Reports: No Symptoms HEENT: Reports: No Symptoms Respiratory: Reports: No Symptoms Cardiovascular: Reports: No Symptoms Endocrine: Reports: No Symptoms GI/Abdominal: Reports: No Symptoms : Reports: No Symptoms Musculoskeletal: Reports: No Symptoms Skin: Reports: No Symptoms Neurological: Reports: No Symptoms Psychiatric: Reports: No Symptoms Hematologic/Lymphatic: Reports: No Symptoms Immunologic: Reports: No Symptoms ED EXAM, GI/ABD - Physical Exam Exam: See Below Exam Limited By: No Limitations General Appearance: Alert, No Apparent Distress Eyes: Left: Normal Appearance Ears: Normal External Exam Nose: Normal Inspection Throat/Mouth: Normal Inspection, Normal Lips Head: Atraumatic Neck: Normal Inspection Respiratory/Chest: No Respiratory Distress, Lungs Clear Cardiovascular: Regular Rate, Rhythm, No Edema, No JVD, No Murmur, No Rub GI/Abdominal Exam: Normal Bowel Sounds, Soft, Non-Tender, No Distention, No Mass Back Exam: Full Range of Motion Extremities: Normal Inspection, Normal Range of Motion, Non-Tender, No Pedal Edema, Normal Capillary Refill Neurological: Alert, Oriented, Normal Cognition, Normal Gait Psychiatric: Normal Affect Skin Exam: Warm, Dry, Intact, Normal Color, No Rash Lymphatic: No Adenopathy Course - Vital Signs Text/Narrative:: Radiologist notes 1 cm of air outside esophagous on CT today. Appreciate verbal report Patient updated with results. I spoke to Dr. Carmelo Caldwell surgeon who accepts for admission for IV antibiotics. I reviewed the patient's previous allergy list and spoke to the pharmacist. With the input of the pharmacist and the surgeon who accepts for admission patient will receive IV Levaquin and IV Cleocin.. MDM: Barbara Haskins female has a remote history of esophageal perforation previously admitted and cared for by Dr. Carmelo Caldwell the surgeon who is now status post EGD and last day with new onset of chest pain that reminds her of her previous esophageal perforation. Today's work-up due to the serious chief complaint of chest pain and high risk recent procedure was immediately assessed. Her pain is controlled. She is received IV antibiotics due to the CT findings today that are suggestive of air outside the esophagus. She has thus treated as an esophageal perforation clinically. I have consulted Dr. Carmelo Caldwell who accepts this patient for inpatient mission and ongoing surgical cares. Previous esophageal perforation was treated medically. Further treatment as inpatient per Dr. Carmelo Caldwell surgeon. I appreciate the surgeon accepting and assuming inpatient care the patient. I have been ordered the initial IV dose antibiotics and further inpatient cares will be per the admit Surgeon. Admit to Dr. Carmelo Caldwell who assumes care primarily-surgeon: Diagnosis: Esophageal perforation status post EGD. Inpatient bed requested Last Recorded V/S: Last Vital Signs Temp 36.5 C 07/23/20 11:17 Pulse 74 07/23/20 11:17 Resp 14 07/23/20 11:17 BP 122/86 07/23/20 11:17 Pulse Ox 99 07/23/20 11:17 - Orders/Labs/Meds Orders: Active Orders 24 hr Category Date Time Status Iopamidol [Isovue-300 (61%)] Med 07/23/20 11:46 Active 100 ml IV . DIRECTED PRN Levofloxacin/Dextrose 5%-Water [Levaquin in D5W 500 MG/ Med 07/23/20 12:53 Active 100 ML] 500 mg Premix Bag 1 bag IV ONETIME Sodium Chloride 0.9% [Saline Flush] Med 07/23/20 11:25 Active 10 ml FLUSH ASDIRECTED PRN Saline Lock Insert [OM.PC] Routine Oth 07/23/20 11:25 Ordered Medication Orders Levofloxacin/Dextrose 500 mg/ (Premix) 100 mls @ 100 mls/hr IV ONETIME ONE Stop: 07/23/20 13:52 Last Admin: 07/23/20 12:58 Dose: 100 mls/hr Documented by: WILMER Iopamidol (Isovue-300 (61%)) 100 ml IV . DIRECTED PRN PRN Reason: RADIOLOGY EXAM Stop: 07/24/20 11:47 Last Admin: 07/23/20 12:00 Dose: 100 ml Documented by: JAN Sodium Chloride (Saline Flush) 10 ml FLUSH ASDIRECTED PRN PRN Reason: Keep Vein Open Last Admin: 07/23/20 12:01 Dose: 10 ml Documented by: WILMER Labs: Laboratory Tests 07/23/20 07/23/20 07/23/20 Range/Units 11:36 11:36 11:36 WBC 3.8 L (4.5-11.0) K/uL RBC 4.83 (3.30-5.50) M/uL Hgb 14.2 D (12.0-15.0) g/dL Hct 41.8 (36.0-48.0) % MCV 87 (80-98) fL MCH 29 (27-31) pg MCHC 34 (32-36) % Plt Count 179 (150-400) K/uL Neut % (Auto) 54 (36-66) % Lymph % (Auto) 36 (24-44) % [place] % (Auto) 9 H (2-6) % Eos % (Auto) 2 (2-4) % Baso % (Auto) 1 (0-1) % Sodium 142 (140-148) mmol/L Potassium 3.5 L (3.6-5.2) mmol/L Chloride 106 (100-108) mmol/L Carbon Dioxide 27 (21-32) mmol/L Anion Gap 12.5 (5.0-14.0) mmol/L BUN 6 L D (7-18) mg/dL Creatinine 0.7 (0.6-1.0) mg/dL Est Cr Clr Drug Dosing 107.01 mL/min Estimated GFR (MDRD) > 60 (>60) Glucose 85 (74-106) mg/dL Calcium 9.1 (8.5-10.1) mg/dL Total Bilirubin 0.9 D (0.2-1.0) mg/dL Direct Bilirubin 0.24 H (0.0-0.2) mg/dL Indirect Bilirubin 0.66 AST 26 (15-37) U/L ALT 32 (12-78) U/L Alkaline Phosphatase 75 (46-116) U/L Total Protein 6.7 (6.4-8.2) g/dL Albumin 3.2 L (3.4-5.0) g/dL Globulin 3.5 (2.3-3.5) g/dL Albumin/Globulin Ratio 0.9 L (1.2-2.2) Lipase 37 L (73-393) U/L Meds: Medications Generic Name Dose Route Start Last Admin Trade Name Freq PRN Reason Stop Dose Admin Levofloxacin/Dextrose 500 mg/ 100 mls @ 100 mls/hr 07/23/20 12:53 07/23/20 12:58 Premix IV 07/23/20 13:52 100 mls/hr ONETIME ONE Administration Iopamidol 100 ml 07/23/20 11:46 07/23/20 12:00 Isovue-300 (61%) IV 07/24/20 11:47 100 ml . DIRECTED PRN Administration RADIOLOGY EXAM Sodium Chloride 10 ml 07/23/20 11:25 07/23/20 12:01 Saline Flush FLUSH 10 ml ASDIRECTED PRN Administration Keep Vein Open Discontinued Medications Generic Name Dose Route Start Last Admin Trade Name Freq PRN Reason Stop Dose Admin Sodium Chloride 75 mls @ 3 mls/sec 07/23/20 12:00 07/23/20 12:00 Normal Saline IV 07/23/20 12:01 3 mls/sec ASDIRECTED FATMATA Administration Clindamycin Phosphate 900 mg/ 106 mls @ 200 mls/hr 07/23/20 13:00 07/23/20 13:07 Sodium Chloride IV 07/23/20 13:31 200 mls/hr ONETIME ONE Administration Sodium Chloride 10 ml 07/23/20 11:46 07/23/20 12:00 Saline Flush FLUSH 07/23/20 11:47 10 ml ONETIME ONE Administration Departure - Departure Time of Disposition: 01:00 (Dr. Carmelo Caldwell, accepts at 1300) Disposition: Admitted As Inpatient 66 Condition: Fair Clinical Impression: Esophageal perforation - Discharge Information Referrals: PCP,None [Primary Care Provider] - Forms: ED Department Discharge Sepsis Event Note (ED) - Evaluation Sepsis Screening Result: No Definite Risk - Focused Exam Vital Signs: Vital Signs Temp Pulse Resp BP Pulse Ox 07/23/20 11:17 36.5 C 74 14 122/86 99 07/23/20 11:14 36.5 C 74 14 122/86 99 - My Orders Last 24 Hours: My Active Orders 07/23/20 11:25 Sodium Chloride 0.9% [Saline Flush] 10 ml FLUSH ASDIRECTED PRN Saline Lock Insert [OM.PC] Routine 07/23/20 11:46 Iopamidol [Isovue-300 (61%)] 100 ml IV . DIRECTED PRN 07/23/20 12:53 Levofloxacin/Dextrose 5%-Water [Levaquin in D5W 500 MG/100 ML] 500 mg Premix Bag 1 bag IV ONETIME - Assessment/Plan Last 24 Hours: My Active Orders 07/23/20 11:25 Sodium Chloride 0.9% [Saline Flush] 10 ml FLUSH ASDIRECTED PRN Saline Lock Insert [OM.PC] Routine 07/23/20 11:46 Iopamidol [Isovue-300 (61%)] 100 ml IV . DIRECTED PRN 07/23/20 12:53 Levofloxacin/Dextrose 5%-Water [Levaquin in D5W 500 MG/100 ML] 500 mg Premix Bag 1 bag IV ONETIME
[2020-07-23] MEDS ORDERED: Sodium Chloride 0.9% 10 ML Syringe FLUSH PRN (11:25)
[2020-07-23] MEDS ORDERED: Sodium Chloride 0.9% 10 ML Syringe FLUSH ONE (11:46)
[2020-07-23] MEDS ORDERED: Iopamidol 612 MG/ML 100 ML Bottle IV PRN (11:46)
[2020-07-23] MEDS ORDERED: Sodium Chloride 0.9% 75 ML IV SCH (12:00)
[2020-07-23] MEDS ORDERED: Clindamycin Phosphate 900 MG in Sodium Chloride 0.9% 100 ML IV ONE ×2 (12:48→13:00)
--- NOTE | 2020-07-23 12:51 | CT ---
Chest w Cont CLINICAL HISTORY: Recent EGD, pain TECHNIQUE: Axial scans were obtained from the thoracic inlet to the lung bases following IV infusion of iodinated contrast. Auto dosage reduction and iterative reconstructrion techniques employed. COMPARISON: None. FINDINGS: Lung window images show a miniscule amount of air just anterior to the right portion of the upper esophagus near the thoracic inlet. This is best seen on axial image #13. There may be a tiny amount of interstitial air along the right. No fluid collection is seen. There is air in the mid to distal esophagus without distention. Mediastinum is free of mass or suspicious lymphadenopathy. There are no pleural effusions. Pulmonary arteries are free of filling defects IMPRESSION: There is a tiny amount of air just outside the anterior lateral aspect of the esophagus on the right near the thoracic inlet. No abnormal fluid collections are seen. Patient is status post recent endoscopy. Status post Becca-en-Y Dr. Sanchez was notified by telephone at the time of this dictation at 12:47 PM
[2020-07-23] MEDS ORDERED: Levofloxacin/Dextrose 5%-Water 500 MG in Premix Bag 1 BAG IV ONE (12:53)
[2020-07-23] MEDS ORDERED: HYDROmorphone 0.5 MG/0.5 ML Syringe IVPUSH PRN (13:53)
[2020-07-23] MEDS ORDERED: Naloxone 0.4 MG/ML SDV IVPUSH PRN (14:29)
[2020-07-23] MEDS ORDERED: Hyoscyamine 0.125 MG Tab.SL SL PRN (14:36)
[2020-07-23] MEDS: Dextrose 5%-Lactated Ringers 1,000 ML IV SCH ×2 (14:39→23:50)
[2020-07-23] MEDS ORDERED: Acetaminophen 500 MG Tab PO PRN (14:45)
[2020-07-23] MEDS: Ondansetron 4 MG/2 ML SDV IVPUSH PRN ×3 (14:49→23:49)
[2020-07-23] MEDS: HYDROmorphone/Normal Saline 15 MG/30 ML PCA IV PRN (15:39)
[2020-07-23] MEDS: Pantoprazole 40 MG Vial IVPUSH SCH (16:04)
[2020-07-23] MEDS: Clindamycin Phosphate 900 MG in Sodium Chloride 0.9% 100 ML IV SCH (21:51)
[2020-07-24] MEDS: Ondansetron 4 MG/2 ML SDV IVPUSH PRN ×4 (03:23→22:12)
[2020-07-24] MEDS: Pantoprazole 40 MG Vial IVPUSH SCH ×2 (03:23→14:57)
[2020-07-24] MEDS: Clindamycin Phosphate 900 MG in Sodium Chloride 0.9% 100 ML IV SCH ×3 (04:17→20:51)
[2020-07-24] MEDS: Dextrose 5%-Lactated Ringers 1,000 ML IV SCH ×2 (10:42→22:46)
[2020-07-24] MEDS: Levofloxacin/Dextrose 5%-Water 500 MG in Premix Bag 1 BAG IV SCH (12:27)
[2020-07-24] MEDS: HYDROmorphone/Normal Saline 15 MG/30 ML PCA IV PRN (22:46)
[2020-07-25] MEDS: Ondansetron 4 MG/2 ML SDV IVPUSH PRN ×3 (03:14→20:11)
[2020-07-25] MEDS: Pantoprazole 40 MG Vial IVPUSH SCH ×2 (03:15→15:00)
[2020-07-25] MEDS: Clindamycin Phosphate 900 MG in Sodium Chloride 0.9% 100 ML IV SCH ×3 (04:35→20:11)
[2020-07-25] MEDS: HYDROmorphone 2 MG Tab PO PRN ×4 (08:48→22:18)
[2020-07-25] MEDS: Potassium Phos in 0.9 % NaCl 15 MMOL in Premix Bag 1 BAG IV SCH ×4 (09:30→16:07)
[2020-07-25] MEDS: Levofloxacin/Dextrose 5%-Water 500 MG in Premix Bag 1 BAG IV SCH (12:45)
[2020-07-25] MEDS: Potassium Chloride 20 MEQ, Lidocaine 1% 2 ML in Sodium Chloride 0.9% 100 ML IV SCH ×2 (18:45→21:17)
--- NOTE | 2020-07-25 19:14 | PN ---
DATE OF SERVICE: 07/24/2020 The patient has been afebrile with stable vital signs. She complained of some lower chest discomfort yesterday and had a CT scan, which showed miniscule amount of air present. Clinically, she is quite stable. Continue with IV antibiotics through today. Go up to a step-2 diet. Potassium is low. We will give her some Kayexalate IV. Otherwise, she will likely be ready for discharge home tomorrow. We will continue the course of oral antibiotics. Benton Ball MD /[id number]
--- NOTE | 2020-07-25 19:55 | PN ---
DATE OF SERVICE: 07/25/2020 The patient has been afebrile with stable vital signs. White count remains normal at 3.9. Potassium is still somewhat low at 3.3 and we will give her some K-Phos and KCl IV today. Otherwise, continue the IV antibiotics for 1 more day, most likely being discharged home tomorrow. We will switch over to oral pain medicine for today. Benton Ball MD /[id number]
[2020-07-26] MEDS: Pantoprazole 40 MG Vial IVPUSH SCH (03:01)
[2020-07-26] MEDS: Clindamycin Phosphate 900 MG in Sodium Chloride 0.9% 100 ML IV SCH (04:27)
[2020-07-26] MEDS: Ondansetron 4 MG/2 ML SDV IVPUSH PRN (05:15)
[2020-07-26] MEDS: HYDROmorphone 2 MG Tab PO PRN ×2 (05:15→09:14)
[2020-07-26 07:27] VITALS: BP 113/45; PULSE 68
--- NOTE | 2020-07-26 08:24 | DISCH ---
ADMISSION DIAGNOSIS: 1 cm of air outside esophagus, status post esophagogastroduodenoscopy. DISCHARGE DIAGNOSIS: Resolution of perforation. HISTORY: Barbara Recio had an esophagogastroduodenoscopy on , 07/22/2020. She presented to the ER on 07/23/[address] for chest pain. A CT was done in the emergency room and did show a tiny amount of air outside the anterior lateral aspect of esophagus and esophagus on the right near the thoracic inlet. No abnormal fluid collections are seen. HOSPITAL COURSE: Barbara was admitted to the hospital and was started on IV antibiotics and pain control along with Zofran for nausea. She gradually improved over the weekend, started on a step 3 diet, tolerated it well, and was able to be discharged to home on 07/26/2020. PHYSICAL EXAMINATION: GENERAL: Barbara Recio is a 24-year-old female. VITAL SIGNS: Height is 5 feet 4 inches, weight is 176 pounds. TPR 98.1, 68, 16, blood pressure 113/45. HEENT: Negative. NECK: Supple. HEART: Regular rate and rhythm. LUNGS: Clear. ABDOMEN: Soft, minimally tender in the midepigastric area. EXTREMITIES: Without peripheral edema. DISPOSITION: Discharged to home. CONDITION: Stable and improving. FOLLOWUP: Appointment with Karla Bella PA-C, on 08/03/2020 at 10 a.m. HOME MEDICATIONS: 1. Dilaudid 2 mg p.o. q.6 hours p.r.n. pain #28. 2. Levaquin 500 mg p.o. q.24 hours, #7. 3. To resume home medications prior to admission: a. Levsin 0.125 mg sublingual every 4 hours. b. Albuterol inhaler 1 to 2 puffs every 4 hours p.r.n. c. Tylenol Extra-Strength 1000 mg every 6 hours p.r.n. d. Sumatriptan 6 mg subcu daily p.r.n. migraine headaches. e. Maxalt MANAGER OF PHOTOGRAPHY 10 mg p.o. as directed p.r.n. headaches. f. Compazine 10 mg p.o. q.6 hours p.r.n. nausea. g. Protonix 40 mg p.o. b.i.d. DIET: Step 3 gastric bypass diet. Drink 8 to 10 glasses of water a day. ACTIVITY: As tolerated. Shower/bathing: May shower. DISCHARGE INSTRUCTIONS: Notify provider if any fever, increased pain, nausea, or vomiting. /[id number]
[2020-07-26] MEDS ORDERED: Levofloxacin 500 MG Tab PO SCH (09:00)
== END 2020-07-26 09:27 | disposition home or self-care (01) | DRG 919 ==
LOC: JP.ED 11:05 → JP.MS 13:37 → OBSVTOIN 07-24 07:05
PROVIDERS: ADMIT Surgery; ATTEND Surgery
DX: K91.71 Accidental puncture and laceration of a digestive system organ or structure during a digestive system procedure (principal); K22.3 Perforation of esophagus; F32.9 Major depressive disorder, single episode, unspecified; K21.9 Gastro-esophageal reflux disease without esophagitis; E66.9 Obesity, unspecified; J45.909 Unspecified asthma, uncomplicated; Z90.49 Acquired absence of other specified parts of digestive tract; Z90.89 Acquired absence of other organs; Z98.890 Other specified postprocedural states; Z87.01 Personal history of pneumonia (recurrent); Z68.30 Body mass index [BMI] 30.0-30.9, adult; Z88.1 Allergy status to other antibiotic agents; Z79.899 Other long term (current) drug therapy; Y83.8 Other surgical procedures as the cause of abnormal reaction of the patient, or of later complication, without mention of misadventure at the time of the procedure; Y92.89 Other specified places as the place of occurrence of the external cause
CPT/HCPCS: 36415; 71260; 71260-26; 80048; 80053; 80076; 82728; 83690; 83735; 84100; 85025; 94762; 96365; 96368; 96375; 99285; 99285-25; A9270-GY; C9113; J1170; J1956; J2405; J3480; J3490; J7121; Q9967

== ENCOUNTER 2020-09-14 17:52 | Emergency (ER) | payer MEDICAID ==
[2020-09-14 18:02] VITALS: BP 121/76; PULSE 66
[2020-09-14] MEDS ORDERED: Sodium Chloride 0.9% 10 ML Syringe FLUSH PRN (18:16)
--- NOTE | 2020-09-14 18:27 | EDM.PDOC ---
ED HPI GENERAL MEDICAL PROBLEM - General Chief Complaint: Neuro Symptoms/Deficits Stated Complaint: MEDICAL VIA [facility] Time Seen by Provider: 09/14/20 18:15 Source of Information: Reports: Patient, EMS, Family History Limitations: Reports: No Limitations - History of Present Illness INITIAL COMMENTS - FREE TEXT/NARRATIVE: Patient presents to the ER due to concern about near-syncopal episode that occurred shortly after eating dinner. She states she started having tunnel vision/"seeing stars" when up/walking to care. Additionally, reports bilateral temperal pain (started left but now bilateral). She states she has hx of migraine HAs but has not had one in about 1.5-2 years--uses regimen of oral maxalt followed by sq imitrex if no relief (last use of imitrex sq 2+ years ago). She states migraines usually posterior for her. Has chronic nausea managed by cyclical zofran & compazine since her Becca-n-Y last Feb. Has had multiple esophageal strictures since her surgery--reports 15+ dilations with several resulting in esophageal perforation. Last perforation in Jul. Since then having chronic lower mid-sternal chest pain that has had estensive cardiology evaluation/negative with recommendation for referral to GI (that referral is pending at this time). She reports tonight ate 1/2 piece of pizza and drank dt coke (watered down with ice)-which she states she has tolerated previously. She reports continued wt loss, currently states [id number]. PMH--obesity, migraine HAs, multiple esophageal strictures s/p Becca-n-Y procedure, chronic nausea, chronic lower mid-chest pain Meds--multiple supplements/vitamins, zofran/compazine cyclical, imitrex autoinjector (last use 2+ years ago), maxalt (last used 1.5 years ago) Tob/EtOH/Drugs--denies Allergies--Amox LMP--21 August Onset: Today, Sudden Temporal Pain Score (Numeric/FACES): 8 - Related Data Allergies Allergy/AdvReac Type Severity Reaction Status Date / Time amoxicillin [Amoxicillin] Allergy Hives Verified 07/23/20 11:18 Home Meds: Home Meds Rizatriptan [Maxalt LABORER CHEESEMAKING] 10 mg PO ASDIRECTED PRN 01/29/20 [History] Albuterol Sulfate [Albuterol Sulfate Hfa] 1 - 2 puff INH Q4H PRN 03/04/20 [History] Hyoscyamine Sulfate [Levsin-Sl] 0.125 mg SL Q4H PRN 03/04/20 [History] Pantoprazole Sodium [Protonix] 40 mg PO BID 06/21/20 [History] Acetaminophen [Tylenol Extra Strength] 1,000 mg PO Q6H tablet 06/25/20 [Rx] HYDROmorphone [Dilaudid] 2 mg PO Q6HR #28 tablet 06/25/20 [Rx] Prochlorperazine [Compazine] 10 mg PO Q6H PRN #30 tablet 06/25/20 [Rx] HYDROmorphone [Dilaudid] 2 mg PO Q6H PRN #28 tablet 07/26/20 [Rx] Past Medical History HEENT History: Reports: Other (See Below) Other HEENT History: bilateral ear tubes, hx of perforation Cardiovascular History: Reports: Heart Murmur Other Cardiovascular History: couldn't hear it anymore after turned 12 Respiratory History: Reports: Asthma, Pneumonia, Recurrent Gastrointestinal History: Reports: GERD Genitourinary History: Reports: None PROFESSOR OF ENGLISH History: Reports: Musculoskeletal History: Reports: Fracture Neurological History: Reports: Concussion, Migraines Psychiatric History: Reports: Depression Endocrine/Metabolic History: Reports: Obesity/BMI 30+ Hematologic History: Reports: None Immunologic History: Reports: None Oncologic (Cancer) History: Reports: None Dermatologic History: Reports: None - Infectious Disease History Infectious Disease History: Reports: Chicken Pox, Novel Coronavirus - Past Surgical History HEENT Surgical History: Reports: Adenoidectomy, Oral Surgery, Tonsillectomy Other HEENT Surgeries/Procedures: wisdom teeth Cardiovascular Surgical History: Reports: None Respiratory Surgical History: Reports: None GI Surgical History: Reports: Appendectomy, Bariatric Procedure, Cholecystectomy, EGD, Esophageal Dilatation, Other (See Below) Other GI Surgeries/Procedures: partial gastrectomy of 02/04/2020 Female Surgical History: Reports: Section Endocrine Surgical History: Reports: None Neurological Surgical History: Reports: None Musculoskeletal Surgical History: Reports: Other (See Below) Other Musculoskeletal Surgeries/Procedures:: right elbow surgery Dermatological Surgical History: Reports: None Social & Family History - Family History Family Medical History: No Pertinent Family History Cardiac: Reports: Other (See Below) Other Cardiac Family History: mother has been having heart issues lately - Caffeine Use Caffeine Use: Reports: None ED ROS GENERAL - Review of Systems Review Of Systems: See Below Constitutional: Reports: No Symptoms HEENT: Reports: Vision Change Respiratory: Reports: No Symptoms Cardiovascular: Reports: Chest Pain (chronic, mid/lower sternal area) Endocrine: Reports: No Symptoms GI/Abdominal: Reports: Abdominal Pain, Nausea (chronic nausea) : Reports: No Symptoms Musculoskeletal: Reports: No Symptoms Skin: Reports: No Symptoms Neurological: Reports: Headache, Syncope (near syncope) Psychiatric: Reports: No Symptoms Hematologic/Lymphatic: Reports: No Symptoms Immunologic: Reports: No Symptoms ED EXAM, GENERAL - Physical Exam Exam: See Below Exam Limited By: No Limitations General Appearance: Alert, WD/WN, No Apparent Distress Eye Exam: Bilateral Eye: EOMI, Normal Inspection, PERRL Ears: Normal External Exam Head: Atraumatic, Normocephalic Neck: Normal Inspection, Supple, Non-Tender, Full Range of Motion Respiratory/Chest: No Respiratory Distress, Lungs Clear, Normal Breath Sounds, No Accessory Muscle Use Cardiovascular: Normal Peripheral Pulses, Regular Rate, Rhythm, No Edema, No Murmur Peripheral Pulses: 2+: Radial (L), Radial (R) GI/Abdominal: Normal Bowel Sounds, Soft, Non-Tender. No: Guarding, Rigid (Female) Exam: Deferred Rectal (Female) Exam: Deferred Back Exam: Normal Inspection Extremities: Normal Inspection, No Pedal Edema, Normal Capillary Refill Neurological: Alert, Oriented, CN II-XII Intact, Normal Cognition, No Motor/Sensory Deficits Psychiatric: Normal Affect, Normal Mood Skin Exam: Warm, Dry, Intact, Normal Color #1 Interpretation EKG Date: 09/14/20 Time: 18:33 (read by physician at 1836) Rhythm: NSR (no STEMI noted, PAC) Schroeder: Normal P-Wave: Present (AR-155) QRS: Normal (QRS-95, low voltage) ST-T: Normal QT: Normal (QT/QTc-396/409) Course - Vital Signs Text/Narrative:: d/w patient and spouse today's ER findings, no acute concerns. no further episodes. no evidence of acute dehydration or electrolyte abnormality to have been related to today's episode. d/w them may have been related to dinner meal, dumping syndrome type event. reviewed post Ruex-n-y dietary practices recommendation, continued concerns then f/u with PCM. verbalized understanding/agreement at this time. ready for d/c Last Recorded V/S: Last Vital Signs Temp 97.8 F 09/14/20 18:01 Pulse 66 09/14/20 18:01 Resp 18 09/14/20 18:01 BP 121/76 09/14/20 18:01 Pulse Ox - Orders/Labs/Meds Orders: Active Orders 24 hr Category Date Time Status EKG Documentation Completion [RC] ASDIRECTED Care 09/14/20 18:17 Active Peripheral IV Care [RC] . DIRECTED Care 09/14/20 18:17 Active Sodium Chloride 0.9% [Saline Flush] Med 09/14/20 18:16 Active 10 ml FLUSH ASDIRECTED PRN Peripheral IV Insertion Adult [OM.PC] Urgent Oth 09/14/20 18:16 Ordered EKG 12 Lead [EK] Stat Ther 09/14/20 18:16 Ordered Medication Orders Sodium Chloride (Sodium Chloride 0.9% 10 Ml Syringe) 10 ml FLUSH ASDIRECTED PRN PRN Reason: Keep Vein Open Labs: Laboratory Tests 09/14/20 09/14/20 Range/Units 18:45 18:45 WBC 5.2 (4.5-11.0) K/uL RBC 4.55 (3.30-5.50) M/uL Hgb 13.4 (12.0-15.0) g/dL Hct 39.6 (36.0-48.0) % MCV 87 (80-98) fL MCH 30 (27-31) pg MCHC 34 (32-36) % Plt Count 188 (150-400) K/uL Neut % (Auto) 61 (36-66) % Lymph % (Auto) 29 (24-44) % [place] % (Auto) 9 H (2-6) % Eos % (Auto) 1 L (2-4) % Baso % (Auto) 0 (0-1) % Sodium 146 (140-148) mmol/L Potassium 4.0 (3.6-5.2) mmol/L Chloride 106 (100-108) mmol/L Carbon Dioxide 27 (21-32) mmol/L Anion Gap 13.3 (5.0-14.0) mmol/L BUN 8 D (7-18) mg/dL Creatinine 0.7 (0.6-1.0) mg/dL Est Cr Clr Drug Dosing 107.01 mL/min Estimated GFR (MDRD) > 60 (>60) Glucose 90 (74-106) mg/dL Calcium 8.0 L (8.5-10.1) mg/dL Magnesium 2.0 (1.8-2.4) mg/dL Total Bilirubin 0.5 (0.2-1.0) mg/dL AST 42 H D (15-37) U/L ALT 53 D (12-78) U/L Alkaline Phosphatase 70 (46-116) U/L Total Protein 6.3 L (6.4-8.2) g/dL Albumin 3.0 L (3.4-5.0) g/dL Globulin 3.3 (2.3-3.5) g/dL Albumin/Globulin Ratio 0.9 L (1.2-2.2) Meds: Medications Generic Name Dose Route Start Last Admin Trade Name Freq PRN Reason Stop Dose Admin Sodium Chloride 10 ml 09/14/20 18:16 Sodium Chloride 0.9% 10 Ml Syringe FLUSH ASDIRECTED PRN Keep Vein Open Departure - Departure Time of Disposition: 21:07 Disposition: Home, Self-Care 01 Condition: Good 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, Dumping syndrome - Discharge Information *PRESCRIPTION DRUG MONITORING PROGRAM REVIEWED*: Not Applicable *COPY OF PRESCRIPTION DRUG MONITORING REPORT IN PATIENT AISHA: Not Applicable Instructions: Near-Syncope, Awnp-rh-Ihah, Dumping Syndrome Referrals: Eulalia Zepeda CNM [Primary Care Provider] - Forms: ED Department Discharge Additional Instructions: Ensure you are following dietary recommendations for vfnd-Jgri-[id number]-y procedure--avoid carbonated beverages, high starch/sugary foods, alcohol; eat small frequent meals, avoid excessive liquids/drinks with meals If further concerns follow up with your family doctor/primary care provider Sepsis Event Note (ED) - Evaluation Sepsis Screening Result: No Definite Risk - Focused Exam Vital Signs: Vital Signs Temp Pulse Resp BP 09/14/20 18:01 97.8 F 66 18 121/76 - My Orders Last 24 Hours: My Active Orders 09/14/20 18:16 Sodium Chloride 0.9% [Saline Flush] 10 ml FLUSH ASDIRECTED PRN Peripheral IV Insertion Adult [OM.PC] Urgent EKG 12 Lead [EK] Stat 09/14/20 18:17 EKG Documentation Completion [RC] ASDIRECTED Peripheral IV Care [RC] . DIRECTED - Assessment/Plan Last 24 Hours: My Active Orders 09/14/20 18:16 Sodium Chloride 0.9% [Saline Flush] 10 ml FLUSH ASDIRECTED PRN Peripheral IV Insertion Adult [OM.PC] Urgent EKG 12 Lead [EK] Stat 09/14/20 18:17 EKG Documentation Completion [RC] ASDIRECTED Peripheral IV Care [RC] . DIRECTED
== END 2020-09-14 21:21 | disposition home or self-care (01) ==
LOC: JP.ED 17:52
DX: R55 Syncope and collapse (principal); K91.1 Postgastric surgery syndromes; J45.909 Unspecified asthma, uncomplicated; K21.9 Gastro-esophageal reflux disease without esophagitis; E66.9 Obesity, unspecified; Z68.28 Body mass index [BMI] 28.0-28.9, adult; Z86.16 Personal history of COVID-19; Z88.0 Allergy status to penicillin; Z79.899 Other long term (current) drug therapy
CPT/HCPCS: 36415; 80053; 83735; 85025; 93005; 99284-25

== ENCOUNTER 2020-10-06 10:48 | Emergency (ER) | payer MEDICAID ==
[2020-10-06] MEDS ORDERED: Sodium Chloride 0.9% 10 ML Syringe FLUSH PRN (11:19)
[2020-10-06] MEDS ORDERED: Sodium Chloride 0.9% 1,000 ML IV STA (11:19)
--- NOTE | 2020-10-06 11:23 | EDM.PDOC ---
ED HPI GENERAL MEDICAL PROBLEM - General Chief Complaint: Abdominal Pain Stated Complaint: POST OP PAIN Time Seen by Provider: 10/06/20 11:13 Source of Information: Reports: Patient, RN Notes Reviewed History Limitations: Reports: No Limitations - History of Present Illness INITIAL COMMENTS - FREE TEXT/NARRATIVE: 24-year-old female presents emergency department day complaint of abdominal pain, she stated has increased over the last 24 hours she does have an extensive abdominal surgical history she is gastric bypass as well, no vomiting has nausea but this is not new had white-colored stools this morning - Related Data Allergies Allergy/AdvReac Type Severity Reaction Status Date / Time amoxicillin [Amoxicillin] Allergy Hives Verified 10/06/20 11:05 Home Meds: Home Meds Rizatriptan [Maxalt SALES PLANNING COORDINATOR] 10 mg PO ASDIRECTED PRN 01/29/20 [History] Albuterol Sulfate [Albuterol Sulfate Hfa] 1 - 2 puff INH Q4H PRN 03/04/20 [History] Hyoscyamine Sulfate [Levsin-Sl] 0.125 mg SL Q4H PRN 03/04/20 [History] Pantoprazole Sodium [Protonix] 40 mg PO BID 06/21/20 [History] Acetaminophen [Tylenol Extra Strength] 1,000 mg PO Q6H tablet 06/25/20 [Rx] Prochlorperazine [Compazine] 10 mg PO Q6H PRN #30 tablet 06/25/20 [Rx] Past Medical History HEENT History: Reports: Other (See Below) Other HEENT History: bilateral ear tubes, hx of perforation Cardiovascular History: Reports: Heart Murmur Other Cardiovascular History: couldn't hear it anymore after turned 12 Respiratory History: Reports: Asthma, Pneumonia, Recurrent Gastrointestinal History: Reports: GERD 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 DOCTOR History: Reports: Musculoskeletal History: Reports: Fracture Neurological History: Reports: Concussion, Migraines Psychiatric History: Reports: Depression Endocrine/Metabolic History: Reports: Obesity/BMI 30+ Hematologic History: Reports: None Immunologic History: Reports: None Oncologic (Cancer) History: Reports: None Dermatologic History: Reports: None - Infectious Disease History Infectious Disease History: Reports: Chicken Pox, Novel Coronavirus - Past Surgical History Head Surgeries/Procedures: Reports: None HEENT Surgical History: Reports: Adenoidectomy, Oral Surgery, Tonsillectomy Other HEENT Surgeries/Procedures: wisdom teeth Cardiovascular Surgical History: Reports: None Respiratory Surgical History: Reports: None GI Surgical History: Reports: Appendectomy, Bariatric Procedure, Cholecystectomy, EGD, Esophageal Dilatation, Other (See Below) Other GI Surgeries/Procedures: partial gastrectomy of 02/04/2020 Female Surgical History: Reports: Section Endocrine Surgical History: Reports: None Neurological Surgical History: Reports: None Musculoskeletal Surgical History: Reports: Other (See Below) Other Musculoskeletal Surgeries/Procedures:: right elbow surgery Dermatological Surgical History: Reports: None Social & Family History - Family History Family Medical History: No Pertinent Family History Cardiac: Reports: Other (See Below) Other Cardiac Family History: mother has been having heart issues lately - Tobacco Use Tobacco Use Status *Q: Never Tobacco User Second Hand Smoke Exposure: No - Caffeine Use Caffeine Use: Reports: None - Recreational Drug Use Recreational Drug Use: No ED ROS GENERAL - Review of Systems Review Of Systems: See Below Constitutional: Reports: No Symptoms HEENT: Reports: No Symptoms Respiratory: Reports: No Symptoms Cardiovascular: Reports: No Symptoms GI/Abdominal: Reports: Abdominal Pain, Flatus, Nausea. Denies: Constipation, Diarrhea, Vomiting : Reports: No Symptoms ED EXAM, GI/ABD - Physical Exam Exam: See Below Exam Limited By: No Limitations General Appearance: Alert, WD/WN, No Apparent Distress Respiratory/Chest: No Respiratory Distress, Lungs Clear, Normal Breath Sounds, No Accessory Muscle Use, Chest Non-Tender Cardiovascular: Regular Rate, Rhythm, No Murmur GI/Abdominal Exam: Normal Bowel Sounds, Soft, No Distention, No Abnormal Bruit, Tender (Tender midepigastric region) Course - Vital Signs Last Recorded V/S: Last Vital Signs Temp 96.6 F L 10/06/20 11:07 Pulse 72 10/06/20 12:10 Resp 18 10/06/20 11:07 BP 103/64 10/06/20 12:10 Pulse Ox 98 10/06/20 12:10 - Orders/Labs/Meds Orders: Active Orders 24 hr Category Date Time Status Peripheral IV Care [RC] . DIRECTED Care 10/06/20 11:20 Active Iopamidol [Isovue-300 (61%)] Med 10/06/20 11:45 Active 100 ml IV . DIRECTED PRN Sodium Chloride 0.9% [Normal Saline] 1,000 ml Med 10/06/20 11:19 Active IV .BOLUS Sodium Chloride 0.9% [Normal Saline] 100 ml Med 10/06/20 11:45 Active IV ASDIRECTED Sodium Chloride 0.9% [Saline Flush] Med 10/06/20 11:19 Active 10 ml FLUSH ASDIRECTED PRN Peripheral IV Insertion Adult [OM.PC] Urgent Oth 10/06/20 11:19 Ordered Medication Orders Sodium Chloride (Normal Saline) 1,000 mls @ 500 mls/hr IV .BOLUS STA Stop: 10/06/20 13:18 Last Admin: 10/06/20 11:48 Dose: 500 mls/hr Documented by: SUKHWINDER Sodium Chloride (Normal Saline) 100 mls @ 3 mls/sec IV ASDIRECTED FATMATA Last Admin: 10/06/20 11:59 Dose: 3 mls/sec Documented by: ELIZABETH Iopamidol (Iopamidol 612 Mg/Ml 100 Ml Bottle) 100 ml IV . DIRECTED PRN PRN Reason: RADIOLOGY EXAM Stop: 10/07/20 11:46 Last Admin: 10/06/20 11:59 Dose: 100 ml Documented by: ELIZABETH Sodium Chloride (Sodium Chloride 0.9% 10 Ml Syringe) 10 ml FLUSH ASDIRECTED PRN PRN Reason: Keep Vein Open Last Admin: 10/06/20 11:59 Dose: 10 ml Documented by: ELIZABETH Labs: Laboratory Tests 10/06/20 10/06/20 10/06/20 Range/Units 11:30 11:30 11:30 WBC 3.6 L (4.5-11.0) K/uL RBC 4.38 (3.30-5.50) M/uL Hgb 13.0 (12.0-15.0) g/dL Hct 38.2 (36.0-48.0) % MCV 87 (80-98) fL MCH 30 (27-31) pg MCHC 34 (32-36) % Plt Count 156 (150-400) K/uL Neut % (Auto) 46 (36-66) % Lymph % (Auto) 38 (24-44) % [place] % (Auto) 15 H (2-6) % Eos % (Auto) 2 (2-4) % Baso % (Auto) 0 (0-1) % Sodium 144 (140-148) mmol/L Potassium 3.9 (3.6-5.2) mmol/L Chloride 107 (100-108) mmol/L Carbon Dioxide 25 (21-32) mmol/L Anion Gap 12.2 (5.0-14.0) mmol/L BUN 11 (7-18) mg/dL Creatinine 0.7 (0.6-1.0) mg/dL Est Cr Clr Drug Dosing 107.01 mL/min Estimated GFR (MDRD) > 60 (>60) Glucose 84 (74-106) mg/dL Lactic Acid 0.7 (0.4-2.0) mmol/L Calcium 8.5 (8.5-10.1) mg/dL Total Bilirubin 0.7 (0.2-1.0) mg/dL AST 59 H (15-37) U/L ALT 54 (12-78) U/L Alkaline Phosphatase 68 (46-116) U/L Total Protein 6.2 L (6.4-8.2) g/dL Albumin 3.0 L (3.4-5.0) g/dL Globulin 3.2 (2.3-3.5) g/dL Albumin/Globulin Ratio 0.9 L (1.2-2.2) Lipase 45 L (73-393) U/L Urine Color (YELLOW) Urine Appearance (CLEAR) Urine pH (5.0-8.0) Ur Specific [place] (1.008-1.030) Urine Protein (NEGATIVE) mg/dL Urine Glucose (UA) (NEGATIVE) mg/dL Urine Ketones (NEGATIVE) mg/dL Urine Occult Blood (NEGATIVE) Urine Nitrite (NEGATIVE) Urine Bilirubin (NEGATIVE) Urine Urobilinogen (0.2-1.0) EU/dL Ur Leukocyte Esterase (NEGATIVE) Urine RBC (0-5) Urine WBC (0-5) Ur Epithelial Cells Urine HCG, Qual 10/06/20 10/06/20 Range/Units 11:43 11:43 WBC (4.5-11.0) K/uL RBC (3.30-5.50) M/uL Hgb (12.0-15.0) g/dL Hct (36.0-48.0) % MCV (80-98) fL MCH (27-31) pg MCHC (32-36) % Plt Count (150-400) K/uL Neut % (Auto) (36-66) % Lymph % (Auto) (24-44) % [place] % (Auto) (2-6) % Eos % (Auto) (2-4) % Baso % (Auto) (0-1) % Sodium (140-148) mmol/L Potassium (3.6-5.2) mmol/L Chloride (100-108) mmol/L Carbon Dioxide (21-32) mmol/L Anion Gap (5.0-14.0) mmol/L BUN (7-18) mg/dL Creatinine (0.6-1.0) mg/dL Est Cr Clr Drug Dosing mL/min Estimated GFR (MDRD) (>60) Glucose (74-106) mg/dL Lactic Acid (0.4-2.0) mmol/L Calcium (8.5-10.1) mg/dL Total Bilirubin (0.2-1.0) mg/dL AST (15-37) U/L ALT (12-78) U/L Alkaline Phosphatase (46-116) U/L Total Protein (6.4-8.2) g/dL Albumin (3.4-5.0) g/dL Globulin (2.3-3.5) g/dL Albumin/Globulin Ratio (1.2-2.2) Lipase (73-393) U/L Urine Color Yellow (YELLOW) Urine Appearance Clear (CLEAR) Urine pH 7.0 (5.0-8.0) Ur Specific [place] 1.025 (1.008-1.030) Urine Protein Negative (NEGATIVE) mg/dL Urine Glucose (UA) Negative (NEGATIVE) mg/dL Urine Ketones 40 H (NEGATIVE) mg/dL Urine Occult Blood Trace-intact H (NEGATIVE) Urine Nitrite Negative (NEGATIVE) Urine Bilirubin Small H (NEGATIVE) Urine Urobilinogen 1.0 (0.2-1.0) EU/dL Ur Leukocyte Esterase Trace H (NEGATIVE) Urine RBC 0-5 (0-5) Urine WBC 0-5 (0-5) Ur Epithelial Cells Many Urine HCG, Qual Negative Meds: Medications Generic Name Dose Route Start Last Admin Trade Name Freq PRN Reason Stop Dose Admin Sodium Chloride 1,000 mls @ 500 mls/hr 10/06/20 11:19 10/06/20 11:48 Normal Saline IV 10/06/20 13:18 500 mls/hr .BOLUS STA Administration Sodium Chloride 100 mls @ 3 mls/sec 10/06/20 11:45 10/06/20 11:59 Normal Saline IV 3 mls/sec ASDIRECTED FATMATA Administration Iopamidol 100 ml 10/06/20 11:45 10/06/20 11:59 Iopamidol 612 Mg/Ml 100 Ml Bottle IV 10/07/20 11:46 100 ml . DIRECTED PRN Administration RADIOLOGY EXAM Sodium Chloride 10 ml 10/06/20 11:19 10/06/20 11:59 Sodium Chloride 0.9% 10 Ml Syringe FLUSH 10 ml ASDIRECTED PRN Administration Keep Vein Open Discontinued Medications Generic Name Dose Route Start Last Admin Trade Name Freq PRN Reason Stop Dose Admin Sodium Chloride 10 ml 10/06/20 11:45 10/06/20 11:49 Sodium Chloride 0.9% 10 Ml Sdv FLUSH 10/06/20 11:46 10 ml ONETIME ONE Administration Departure - Departure Time of Disposition: 12:56 Disposition: Home, Self-Care 01 Condition: Fair Clinical Impression: Abdominal pain Qualifiers: Abdominal location: epigastric Qualified Code(s): R10.13 - Epigastric pain - Discharge Information Instructions: Abdominal Pain, Adult, [id number] Referrals: Eulalia Zepeda CNM [Primary Care Provider] - Forms: ED Department Discharge Additional Instructions: Continue with your regular medications continue use Tylenol as needed for pain control, keep your follow-up appointments with your primary care and 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 DIRECTED 10/06/20 11:45 Iopamidol [Isovue-300 (61%)] 100 ml IV . DIRECTED PRN Sodium Chloride 0.9% [Normal Saline] 100 ml IV ASDIRECTED - Assessment/Plan Last 24 Hours: My Active Orders 10/06/20 11:19 Sodium Chloride 0.9% [Normal Saline] 1,000 ml IV .BOLUS Sodium Chloride 0.9% [Saline Flush] 10 ml FLUSH ASDIRECTED PRN Peripheral IV Insertion Adult [OM.PC] Urgent 10/06/20 11:20 Peripheral IV Care [RC] . DIRECTED 10/06/20 11:45 Iopamidol [Isovue-300 (61%)] 100 ml IV . DIRECTED PRN Sodium Chloride 0.9% [Normal Saline] 100 ml IV ASDIRECTED Plan: Assessment Acuity = acute Site and laterality = abdominal pain complicated patient with known history of gastric bypass multiple surgical complications Etiology = unknown Manifestations = none Location of injury = Home Lab values = WBC low at 3.6 consistent leukopenia AST slightly elevated 59 consistent elevated liver enzymes urinalysis unremarkable CT scan found no acute process Plan I did review lab CT scan results with her she is going to continue to use Tylenol as needed for pain control she does have follow-up appointment with her primary care this week and follow-up appointment with gastroenterology later on this month This note was dictated using [email or web address] voice recognition software please call with any questions on syntax or grammar.
[2020-10-06] MEDS ORDERED: Sodium Chloride 0.9% 100 ML IV SCH (11:45)
[2020-10-06] MEDS ORDERED: Sodium Chloride 0.9% 10 ML SDV FLUSH ONE (11:45)
[2020-10-06] MEDS ORDERED: Iopamidol 612 MG/ML 100 ML Bottle IV PRN (11:45)
[2020-10-06 12:27] VITALS: BP 103/64; PULSE 72
--- NOTE | 2020-10-06 12:43 | CT ---
Abdomen Pelvis w Cont CLINICAL HISTORY: Abdominal pain COMPARISON: 08/02/2020. TECHNIQUE: Transverse scans were obtained from the base of the lungs to the pubic symphysis following oral contrast and IV infusion of contrast.Auto dosage reduction and iterative reconstructiontechniques employed. FINDINGS: The lung bases are clear. Patient has had previous gastric surgery. The liver shows some diffuse fatty infiltration. The gallbladder has been removed. The spleen has a normal size and shape. The pancreas shows no mass or inflammatory change. There is some slight rotation of the mesenteric vessels as a distended. There is no evidence of vascular compression The adrenal glands appear normal bilaterally . The kidneys show no mass, stones or hydronephrosis. The ureters have normal course and contour. The bladder is empty. There are bilateral ovarian cysts. No free pelvic fluid is identified. There are some mildly prominent periuterine vessels on the left. There is also prominent left ovarian vein. This may represent some ovarian vein incompetence. The aorta has a normal contour. There is no suspicious retroperitoneal adenopathy. The small intestinal configuration is nonacute. The appendix is been removed. IMPRESSION: Previous gastric surgery Fatty infiltration of the liver No mass or inflammatory change Prominent left pelvic vessels likely representing some left ovarian vein reflux
== END 2020-10-06 13:17 | disposition home or self-care (01) ==
LOC: JP.ED 10:48
DX: R10.13 Epigastric pain (principal); J45.909 Unspecified asthma, uncomplicated; K21.9 Gastro-esophageal reflux disease without esophagitis; E66.9 Obesity, unspecified; Z68.27 Body mass index [BMI] 27.0-27.9, adult; Z88.0 Allergy status to penicillin; Z79.899 Other long term (current) drug therapy
CPT/HCPCS: 36415; 74177; 74177-26; 80053; 81001; 81025; 83605; 83690; 85025; 99283; 99284-25; J7030; Q9967

== ENCOUNTER 2021-08-21 11:58 | Emergency (ER) | payer MEDICAID ==
[2021-08-21 12:15] VITALS: BP 128/87; PULSE 71
[2021-08-21 13:19] LABS: CORONAVIRUS COVID-19 NAA NEGATIVE (NEGATIVE)
== END 2021-08-21 13:38 | disposition home or self-care (01) ==
LOC: JP.ED 11:58
DX: H65.91 Unspecified nonsuppurative otitis media, right ear (principal); K21.9 Gastro-esophageal reflux disease without esophagitis; E66.9 Obesity, unspecified; Z68.24 Body mass index [BMI] 24.0-24.9, adult; Z88.0 Allergy status to penicillin; Z86.16 Personal history of COVID-19; Z79.899 Other long term (current) drug therapy
CPT/HCPCS: 0241U; 99283

== ENCOUNTER 2021-09-26 05:12 | Emergency (ER) | payer MEDICAID ==
[2021-09-26] MEDS ORDERED: Ondansetron 4 MG/2 ML SDV IVPUSH ONE (05:23)
[2021-09-26] MEDS ORDERED: Sodium Chloride 0.9% 10 ML Syringe FLUSH PRN (05:23)
[2021-09-26 05:30] VITALS: BP 138/98; PULSE 96
[2021-09-26] MEDS ORDERED: HYDROmorphone 1 MG/ML Syringe IVPUSH ONE (05:41)
[2021-09-26] MEDS ORDERED: Aluminum Hydroxide/Magnesium Hydroxide/Simethicone Susp 30 ML Cup PO STA (06:06)
[2021-09-26 06:32] LABS: CORONAVIRUS COVID-19 NAA NEGATIVE (NEGATIVE)
[2021-09-26] MEDS ORDERED: Polyethylene Glycol 3350 Powder 119 GM Bottle PO ONE (07:12)
[2021-09-26] MEDS ORDERED: Bisacodyl 10 MG Supp RECTAL ONE (07:12)
== END 2021-09-26 08:29 | disposition home or self-care (01) ==
LOC: JP.ED 05:12
DX: K59.09 Other constipation (principal); J45.909 Unspecified asthma, uncomplicated; K21.9 Gastro-esophageal reflux disease without esophagitis; E66.9 Obesity, unspecified; Z68.24 Body mass index [BMI] 24.0-24.9, adult; Z79.899 Other long term (current) drug therapy; Z86.16 Personal history of COVID-19; Z90.49 Acquired absence of other specified parts of digestive tract; Z88.0 Allergy status to penicillin; Z20.822 Contact with and (suspected) exposure to COVID-19
CPT/HCPCS: 0241U; 36415; 74176; 80053; 83605; 83690; 85025; 96374; 96375; 99281; 99284-25; A9270-GY; J1170; J2405; J3490

== ENCOUNTER 2021-10-17 08:55 | Day surgery (SDC) | payer MEDICAID ==
[~2021-10-17 08:55] MED LIST changes: -Cyanocobalamin (Vitamin B12) 1,000 MCG/ML SDV IM ONE; +Midazolam 1 MG/ML 2 ML SDV ONE; +Propofol 200 MG/20 ML SDV ONE; +fentaNYL 100 MCG/2 ML SDV ONE
[2021-10-17] MEDS ORDERED: Lactated Ringers 1,000 ML IV SCH (09:30)
[2021-10-17] MEDS ORDERED: Cyanocobalamin (Vitamin B12) 1,000 MCG/ML SDV IM ONE (09:30)
[2021-10-17] MEDS ORDERED: Glycopyrrolate 0.2 MG/ML 2 ML SDV IVPUSH ONE (10:00)
[2021-10-17] MEDS ORDERED: MVI, Adult with Vitamin K 10 ML, Thiamine 200 MG, Chromium/Copper/Mang/Selen/Zn 1 ML in... IV SCH ×4 (11:00)
[2021-10-17 12:40] VITALS: PULSE 73
[2021-10-17 13:13] VITALS: BP 113/67
== END 2021-10-17 13:15 | disposition home or self-care (01) ==
LOC: JP.SDS 08:55
PROVIDERS: ATTEND Surgery
DX: K29.70 Gastritis, unspecified, without bleeding (principal); Z88.0 Allergy status to penicillin
CPT/HCPCS: J2250; J2704; J3010; J3411; J3420; J3490; J7120

== ENCOUNTER 2021-11-16 10:17 | Inpatient (IN) | payer MEDICAID ==
[2021-11-16] MEDS ORDERED: Naloxone 0.4 MG/ML SDV IV PRN (11:00)
[2021-11-16] MEDS: Celecoxib 200 MG Cap PO SCH ×2 (11:29→21:32)
[2021-11-16] MEDS: Pantoprazole 40 MG Vial IV SCH (11:29)
[2021-11-16] MEDS: Dextrose 5%-Lactated Ringers 1,000 ML IV SCH ×2 (11:32→21:32)
[2021-11-16] MEDS: BIRTH CONTROL PILLS PO SCH (15:06)
[2021-11-17 05:21] LABS: ESTIMATED GFR 105 mL/min (>60)
[2021-11-17] MEDS: Dextrose 5%-Lactated Ringers 1,000 ML IV SCH (07:29)
[2021-11-17] MEDS: Celecoxib 200 MG Cap PO SCH (09:59)
[2021-11-17] MEDS ORDERED: Lidocaine 1% with EPINEPHrine 1:100,000 50 ML MDV ONE (10:18)
[2021-11-17] MEDS ORDERED: Bupivacaine 0.5%/EPINEPHrine 1:200,000 50 ML MDV ONE (10:19)
[2021-11-17] MEDS ORDERED: Bupivacaine 0.5% 50 ML MDV ONE (10:20)
[2021-11-17] MEDS ORDERED: Ondansetron 4 MG/2 ML SDV IVPUSH PRN (11:27)
[2021-11-17] MEDS: Pantoprazole 40 MG Vial IV SCH (11:34)
[2021-11-17] MEDS: BIRTH CONTROL PILLS PO SCH (11:35)
[2021-11-17] MEDS ORDERED: fentaNYL 250 MCG/5 ML SDV ONE ×2 (12:03→15:52)
[2021-11-17] MEDS ORDERED: Propofol 200 MG/20 ML SDV ONE (12:04)
[2021-11-17] MEDS ORDERED: Dexamethasone 4 MG/ML SDV ONE (12:04)
[2021-11-17] MEDS ORDERED: Rocuronium 50 MG/5 ML Vial ONE ×2 (12:04→15:27)
[2021-11-17] MEDS ORDERED: Ondansetron 4 MG/2 ML SDV ONE (12:04)
[2021-11-17] MEDS ORDERED: Succinylcholine 200 MG/10 ML MDV ONE (12:04)
[2021-11-17] MEDS ORDERED: Glycopyrrolate 0.2 MG/ML 5 ML MDV ONE (12:04)
[2021-11-17] MEDS ORDERED: Neostigmine Methylsulfate 1 MG/ML 5 ML Syringe ONE (12:04)
[2021-11-17] MEDS ORDERED: Albuterol/Ipratropium 3.0-0.5 MG/3 ML Neb Soln INH ONE (12:45)
[2021-11-17] MEDS ORDERED: Ketamine 500 MG/5 ML MDV IV SCH (13:00)
[2021-11-17] MEDS ORDERED: cefOXitin 2 GM in Sodium Chloride 0.9% 50 ML IV ONE (13:00)
[2021-11-17] MEDS ORDERED: Ketamine 16 MG in Sodium Chloride 0.9% 19.84 ML IV SCH (13:00)
[2021-11-17] MEDS ORDERED: Ropivacaine 34 ML, dexAMETHasone 8 MG, EPINEPHrine 0.4 MG, Sodium Chloride 0.9% 43.6 ML NERVRT SCH ×4 (13:00)
[2021-11-17] MEDS ORDERED: Meropenem 500 MG SDV ONE (14:18)
[2021-11-17] MEDS ORDERED: Lactated Ringers 1,000 ML ONE (15:01)
[2021-11-17] MEDS: HYDROmorphone/Normal Saline 6 MG/30 ML PCA Vial IV PRN (15:05)
[2021-11-17] MEDS ORDERED: Labetalol 20 MG/4 ML Syringe ONE (16:27)
[2021-11-17] MEDS ORDERED: hydrOXYzine HCL 100 MG/2 ML SDV IM ONE (17:28)
[2021-11-17] MEDS ORDERED: Dextrose 5%-Lactated Ringers 1,000 ML IV SCH (17:30)
[2021-11-17] MEDS ORDERED: Labetalol 20 MG/4 ML Syringe IVPUSH PRN (17:30)
[2021-11-17] MEDS ORDERED: Metoclopramide 10 MG/2 ML SDV IVPUSH PRN (17:30)
[2021-11-17] MEDS ORDERED: Acetaminophen 500 MG Tab PO PRN (17:30)
[2021-11-17] MEDS ORDERED: hydrOXYzine HCL 100 MG/2 ML SDV IM PRN ×2 (17:30→17:34)
[2021-11-17] MEDS ORDERED: Albuterol/Ipratropium 3.0-0.5 MG/3 ML Neb Soln INH PRN (17:30)
[2021-11-17] MEDS ORDERED: diphenhydrAMINE 50 MG/ML SDV IVPUSH PRN (17:30)
[2021-11-17] MEDS ORDERED: Scopolamine 1.5 MG Transdermal Patch TOP PRN (17:42)
[2021-11-17] MEDS: Cyclobenzaprine 10 MG Tab PO PRN (18:14)
[2021-11-17] MEDS ORDERED: MVI, Adult with Vitamin K 10 ML, Thiamine 200 MG, Zinc/Copper/Manganese/Selenium 1 ML i... IV SCH ×4 (18:30)
[2021-11-17] MEDS: Pantoprazole 40 MG Vial IVPUSH SCH (19:51)
[2021-11-17] MEDS: cefOXitin 2 GM in Sodium Chloride 0.9% 50 ML IV SCH (21:19)
[2021-11-17] MEDS: Acetaminophen 500 MG Tab PO SCH (21:21)
[2021-11-17] MEDS: Heparin Sodium 5,000 Units/ML Vial SUBCUT SCH (21:22)
[2021-11-17] MEDS: Albuterol/Ipratropium 3.0-0.5 MG/3 ML Neb Soln INH SCH (21:22)
[2021-11-18] MEDS: HYDROmorphone/Normal Saline 6 MG/30 ML PCA Vial IV PRN ×2 (00:48→14:51)
[2021-11-18] MEDS ORDERED: Iopamidol 612 MG/ML 50 ML SDV PO ONE (03:12)
[2021-11-18] MEDS: cefOXitin 2 GM in Sodium Chloride 0.9% 50 ML IV SCH ×3 (04:01→15:53)
[2021-11-18 05:07] LABS: ESTIMATED GFR 91 mL/min (>60)
[2021-11-18] MEDS: Acetaminophen 500 MG Tab PO SCH ×3 (05:12→21:23)
[2021-11-18] MEDS: Cyclobenzaprine 10 MG Tab PO PRN (05:13)
[2021-11-18] MEDS: Albuterol/Ipratropium 3.0-0.5 MG/3 ML Neb Soln INH SCH ×4 (07:06→21:23)
[2021-11-18] MEDS ORDERED: Ondansetron 4 MG Tab.DIS PO PRN (07:46)
[2021-11-18] MEDS: SCOPOLAMINE PATCH CHECK TOP SCH (09:03)
[2021-11-18] MEDS: Celecoxib 200 MG Cap PO SCH ×2 (09:05→21:22)
[2021-11-18] MEDS: Docusate Sodium 100 MG Cap PO SCH ×2 (09:05→21:22)
[2021-11-18] MEDS: Heparin Sodium 5,000 Units/ML Vial SUBCUT SCH ×2 (09:05→21:23)
[2021-11-18] MEDS: Bisacodyl 5 MG Tab PO SCH ×2 (09:05→21:22)
[2021-11-18] MEDS: Sodium Ferric Gluconate Cmplex 250 MG in Sodium Chloride 0.9% 100 ML IV SCH (10:20)
[2021-11-18] MEDS: NORETHINDRONE 5 MG PO SCH ×2 (10:21→21:24)
[2021-11-18] MEDS ORDERED: MVI, Adult with Vitamin K 10 ML, Thiamine 200 MG, Zinc/Copper/Manganese/Selenium 1 ML i... IV SCH ×4 (16:00)
[2021-11-18] MEDS: Pantoprazole 40 MG Vial IVPUSH SCH (17:34)
[2021-11-19] MEDS: Dextrose 5%-Lactated Ringers 1,000 ML IV SCH ×2 (02:46→12:21)
[2021-11-19] MEDS: Acetaminophen 500 MG Tab PO SCH ×3 (05:01→20:59)
[2021-11-19] MEDS: Albuterol/Ipratropium 3.0-0.5 MG/3 ML Neb Soln INH SCH ×4 (07:12→20:58)
[2021-11-19] MEDS ORDERED: Magnesium Hydroxide 400 MG/5 ML Susp 30 ML Cup PO PRN (08:01)
[2021-11-19] MEDS ORDERED: Cyanocobalamin (Vitamin B12) 1,000 MCG/ML SDV IM ONE (09:00)
[2021-11-19] MEDS ORDERED: Magnesium Hydroxide 400 MG/5 ML Susp 30 ML Cup PO ONE (09:00)
[2021-11-19] MEDS: Docusate Sodium 100 MG Cap PO SCH ×2 (09:24→20:58)
[2021-11-19] MEDS: Bisacodyl 5 MG Tab PO SCH ×2 (09:24→20:58)
[2021-11-19] MEDS: Heparin Sodium 5,000 Units/ML Vial SUBCUT SCH ×2 (09:24→20:58)
[2021-11-19] MEDS: Celecoxib 200 MG Cap PO SCH ×2 (09:24→20:58)
[2021-11-19] MEDS: SCOPOLAMINE PATCH CHECK TOP SCH (09:25)
[2021-11-19] MEDS: Sodium Ferric Gluconate Cmplex 250 MG in Sodium Chloride 0.9% 100 ML IV SCH (10:40)
[2021-11-19] MEDS: NORETHINDRONE 5 MG PO SCH (11:16)
[2021-11-19] MEDS: HYDROmorphone 2 MG Tab PO PRN ×3 (12:16→21:53)
[2021-11-19] MEDS ORDERED: Pantoprazole 40 MG Tab.CR PO SCH (17:37)
[2021-11-20] MEDS: HYDROmorphone 2 MG Tab PO PRN ×2 (03:20→07:23)
[2021-11-20] MEDS: Acetaminophen 500 MG Tab PO SCH (05:17)
[2021-11-20 07:21] VITALS: BP 115/67; PULSE 89
[2021-11-20] MEDS: Albuterol/Ipratropium 3.0-0.5 MG/3 ML Neb Soln INH SCH (07:24)
[2021-11-20] MEDS: Bisacodyl 5 MG Tab PO SCH (08:52)
[2021-11-20] MEDS: Docusate Sodium 100 MG Cap PO SCH (08:52)
[2021-11-20] MEDS: Heparin Sodium 5,000 Units/ML Vial SUBCUT SCH (08:52)
[2021-11-20] MEDS: Celecoxib 200 MG Cap PO SCH (08:52)
[2021-11-20] MEDS ORDERED: NORETHINDRONE 5 MG PO SCH (21:00)
== END 2021-11-20 10:40 | disposition home or self-care (01) | DRG 330 ==
LOC: JP.2SS 10:18
PROVIDERS: ADMIT Surgery; ATTEND Surgery
PROC: 0DBA0ZZ Excision of Jejunum, Open Approach (ICD-10-PCS; principal; 2021-11-17)
PROC: 07BB0ZX Excision of Mesenteric Lymphatic, Open Approach, Diagnostic (ICD-10-PCS; 2021-11-17)
PROC: 0WQF0ZZ Repair Abdominal Wall, Open Approach (ICD-10-PCS; 2021-11-17)
PROC: 3E0M05Z Introduction of Adhesion Barrier into Peritoneal Cavity, Open Approach (ICD-10-PCS; 2021-11-17)
DX: K56.600 Partial intestinal obstruction, unspecified as to cause (principal); K91.2 Postsurgical malabsorption, not elsewhere classified; K56.1 Intussusception; Z20.822 Contact with and (suspected) exposure to COVID-19; D64.9 Anemia, unspecified; F32.A Depression, unspecified; J45.909 Unspecified asthma, uncomplicated; E66.9 Obesity, unspecified; G43.909 Migraine, unspecified, not intractable, without status migrainosus; K21.9 Gastro-esophageal reflux disease without esophagitis; E53.8 Deficiency of other specified B group vitamins; R10.13 Epigastric pain; E60 Dietary zinc deficiency; E53.9 Vitamin B deficiency, unspecified; Z68.35 Body mass index [BMI] 35.0-35.9, adult; Z90.710 Acquired absence of both cervix and uterus; Z98.891 History of uterine scar from previous surgery; Z90.3 Acquired absence of stomach [part of]; Z90.49 Acquired absence of other specified parts of digestive tract
CPT/HCPCS: 36415; 74240; 74240-26; 80053; 82728; 83735; 83880; 84100; 85025; 87015; 87070; 87075; 87077; 87102; 87116; 87186; 87205; 87206; 87220; 88302; 88305; 88307; 88312; 94640; A9270-GY; C9113; J0171; J0330; J0694; J1100; J1170; J1200; J1644; J2185; J2405; J2704; J2710; J2795; J2916; J3010; J3410; J3411; J3420; J3490; J7120; J7121; J7620; Q9967; U0002

== ENCOUNTER 2022-04-24 05:28 | Inpatient (IN) | payer MEDICAID ==
[2022-04-24] MEDS ORDERED: Sodium Chloride 0.9% 10 ML Syringe FLUSH PRN (06:06)
[2022-04-24] MEDS ORDERED: Ondansetron 4 MG/2 ML SDV IVPUSH ONE (06:08)
[2022-04-24] MEDS ORDERED: fentaNYL 100 MCG/2 ML SDV IVPUSH ONE (06:08)
[2022-04-24] MEDS ORDERED: Lactated Ringers 1,000 ML IV SCH (06:15)
[2022-04-24] MEDS: Sodium Chloride 0.9% 10 ML Syringe FLUSH ONE ×2 (06:28→06:40)
[2022-04-24] MEDS ORDERED: Iopamidol 612 MG/ML 100 ML Bottle IV SCH (06:30)
[2022-04-24] MEDS ORDERED: Sodium Chloride 0.9% 100 ML IV SCH (06:30)
[2022-04-24 06:38] LABS: ESTIMATED GFR 127 mL/min (>60)
[2022-04-24] MEDS ORDERED: fentaNYL 50 MCG/ML SDV IVPUSH ONE (07:47)
[2022-04-24] MEDS ORDERED: Naloxone 0.4 MG/ML SDV IVPUSH PRN (08:42)
[2022-04-24] MEDS ORDERED: diphenhydrAMINE 25 MG Cap PO PRN (08:42)
[2022-04-24] MEDS ORDERED: diphenhydrAMINE 50 MG/ML SDV IVPUSH PRN (08:42)
[2022-04-24 09:27] LABS: VITAMIN D,25-HYDROXY 13.5 ng/mL (30-100)
[2022-04-24] MEDS ORDERED: MVI, Adult with Vitamin K 10 ML, Thiamine 100 MG, Magnesium Sulfate 2 GM, Folic Acid 1 ... IV ONE ×5 (10:00)
[2022-04-24] MEDS: HYDROmorphone/Normal Saline 6 MG/30 ML PCA Vial IV PRN (10:16)
[2022-04-24] MEDS: Pantoprazole 40 MG Vial IVPUSH SCH (10:44)
[2022-04-24] MEDS: Dextrose 5%-Lactated Ringers 1,000 ML IV SCH ×2 (16:10→23:13)
[2022-04-24] MEDS: Ondansetron 4 MG/2 ML SDV IVPUSH PRN (16:15)
[2022-04-25] MEDS: Ondansetron 4 MG/2 ML SDV IVPUSH PRN (01:06)
[2022-04-25] MEDS: HYDROmorphone/Normal Saline 6 MG/30 ML PCA Vial IV PRN (03:41)
[2022-04-25 05:39] LABS: ESTIMATED GFR 122 mL/min (>60)
[2022-04-25] MEDS: Dextrose 5%-Lactated Ringers 1,000 ML IV SCH ×2 (05:47→19:38)
[2022-04-25] MEDS ORDERED: Ondansetron 4 MG/2 ML SDV IVPUSH PRN (06:05)
[2022-04-25] MEDS ORDERED: Glycopyrrolate 0.2 MG/ML 5 ML MDV ONE (09:01)
[2022-04-25] MEDS ORDERED: Ondansetron 4 MG/2 ML SDV ONE (09:01)
[2022-04-25] MEDS ORDERED: Neostigmine Methylsulfate 1 MG/ML 5 ML Syringe ONE (09:01)
[2022-04-25] MEDS ORDERED: Dexamethasone 4 MG/ML SDV ONE (09:01)
[2022-04-25] MEDS ORDERED: Succinylcholine 200 MG/10 ML MDV ONE (09:01)
[2022-04-25] MEDS ORDERED: Propofol 200 MG/20 ML SDV ONE (09:01)
[2022-04-25] MEDS ORDERED: Rocuronium 50 MG/5 ML Vial ONE (09:01)
[2022-04-25] MEDS ORDERED: Bupivacaine 0.5% 50 ML MDV ONE (09:25)
[2022-04-25] MEDS ORDERED: Lidocaine 1% with EPINEPHrine 1:100,000 50 ML MDV ONE (09:25)
[2022-04-25] MEDS ORDERED: Meropenem 500 MG SDV ONE (09:25)
[2022-04-25] MEDS: Pantoprazole 40 MG Vial IVPUSH SCH (09:37)
[2022-04-25] MEDS ORDERED: NEOMYCIN ONE ×2 (11:00)
[2022-04-25] MEDS ORDERED: SODIUM CHLORIDE 0.9% ONE ×2 (11:00)
[2022-04-25] MEDS ORDERED: POLYMYXIN B ONE ×2 (11:00)
[2022-04-25] MEDS ORDERED: Midazolam 1 MG/ML 2 ML SDV ONE (11:46)
[2022-04-25] MEDS ORDERED: cefOXitin 2 GM in Sodium Chloride 0.9% 50 ML IV ONE (13:00)
[2022-04-25] MEDS ORDERED: Ketamine 500 MG/5 ML MDV IV SCH (13:00)
[2022-04-25] MEDS ORDERED: Naloxone 0.4 MG/ML SDV IVPUSH PRN (13:00)
[2022-04-25] MEDS ORDERED: Ketamine 16 MG in Sodium Chloride 0.9% 19.84 ML IV SCH (13:00)
[2022-04-25] MEDS ORDERED: Linezolid 600 MG/300 ML Premix Bag IRR ONE (14:48)
[2022-04-25] MEDS ORDERED: Meperidine PF 100 MG/ML Syringe IM PRN (16:40)
[2022-04-25] MEDS: hydrOXYzine HCL 100 MG/2 ML SDV IM PRN ×2 (16:44→21:30)
[2022-04-25] MEDS: diphenhydrAMINE 50 MG/ML SDV IVPUSH PRN (16:53)
[2022-04-25] MEDS: Acetaminophen 500 MG Tab PO SCH ×2 (16:54→23:40)
[2022-04-25] MEDS ORDERED: Labetalol 20 MG/4 ML Syringe IVPUSH PRN (17:00)
[2022-04-25] MEDS ORDERED: diphenhydrAMINE 50 MG/ML SDV IVPUSH PRN (17:00)
[2022-04-25] MEDS: fentaNYL 2,500 MCG in Sodium Chloride 0.9% 200 ML EPIDUR SCH (17:21)
[2022-04-25] MEDS ORDERED: MVI, Adult with Vitamin K 10 ML, Thiamine 200 MG, Zinc/Copper/Manganese/Selenium 1 ML i... IV SCH ×4 (18:00)
[2022-04-25] MEDS: Naloxone 0.4 MG/ML SDV IV PRN (19:38)
[2022-04-25] MEDS: cefOXitin 2 GM in Sodium Chloride 0.9% 50 ML IV SCH (19:38)
[2022-04-25] MEDS ORDERED: Heparin Sodium 5,000 Units/ML Vial SUBCUT SCH (20:00)
[2022-04-25] MEDS: Acetaminophen 500 MG Tab PO PRN (21:30)
[2022-04-25] MEDS: Cyclobenzaprine 10 MG Tab PO PRN (21:30)
[2022-04-26] MEDS: Naloxone 0.4 MG/ML SDV IV PRN ×2 (01:20→06:58)
[2022-04-26] MEDS: Dextrose 5%-Lactated Ringers 1,000 ML IV SCH ×2 (01:20→06:58)
[2022-04-26] MEDS: cefOXitin 2 GM in Sodium Chloride 0.9% 50 ML IV SCH ×4 (02:24→19:27)
[2022-04-26] MEDS ORDERED: Iopamidol 612 MG/ML 50 ML SDV PO STA (03:23)
[2022-04-26 05:15] LABS: ESTIMATED GFR 90 mL/min (>60)
[2022-04-26] MEDS: Cyclobenzaprine 10 MG Tab PO PRN ×2 (05:22→14:04)
[2022-04-26] MEDS: hydrOXYzine HCL 100 MG/2 ML SDV IM PRN (05:23)
[2022-04-26] MEDS: Acetaminophen 500 MG Tab PO SCH ×2 (07:18→15:54)
[2022-04-26] MEDS: Pantoprazole 40 MG Vial IVPUSH SCH (09:01)
[2022-04-26] MEDS: Celecoxib 200 MG Cap PO SCH ×2 (09:07→20:54)
[2022-04-26] MEDS: Albumin Human 25 GM in Premix Bag 1 BAG IV SCH (09:08)
[2022-04-26] MEDS: Ondansetron 4 MG/2 ML SDV IVPUSH PRN (09:45)
[2022-04-26] MEDS: fentaNYL 2,500 MCG in Sodium Chloride 0.9% 200 ML EPIDUR SCH (10:18)
[2022-04-26] MEDS: Naloxone 0.4 MG in Dextrose 5%-Lactated Ringers 1,000 ML IV SCH (14:10)
[2022-04-26] MEDS ORDERED: MVI, Adult with Vitamin K 10 ML, Thiamine 200 MG, Zinc/Copper/Manganese/Selenium 1 ML i... IV SCH ×4 (15:00)
[2022-04-26] MEDS ORDERED: Dextrose 5%-Lactated Ringers 1,000 ML IV SCH (18:00)
[2022-04-26] MEDS: diphenhydrAMINE 50 MG/ML SDV IVPUSH PRN (20:54)
[2022-04-27] MEDS: Acetaminophen 500 MG Tab PO SCH ×4 (00:09→23:42)
[2022-04-27] MEDS: Cyclobenzaprine 10 MG Tab PO PRN ×3 (00:09→18:49)
[2022-04-27] MEDS: cefOXitin 2 GM in Sodium Chloride 0.9% 50 ML IV SCH ×3 (02:21→14:00)
[2022-04-27 05:15] LABS: ESTIMATED GFR 122 mL/min (>60)
[2022-04-27] MEDS ORDERED: Lidocaine 1% with EPINEPHrine 1:100,000 50 ML MDV ONE (06:32)
[2022-04-27] MEDS ORDERED: Bupivacaine 0.5% 30 ML SDV ONE (06:32)
[2022-04-27] MEDS ORDERED: Meropenem 500 MG SDV ONE (06:33)
[2022-04-27] MEDS ORDERED: Midazolam 1 MG/ML 2 ML SDV ONE (07:09)
[2022-04-27] MEDS ORDERED: fentaNYL 50 MCG/ML SDV ONE (07:10)
[2022-04-27] MEDS ORDERED: Propofol 200 MG/20 ML SDV ONE (07:10)
[2022-04-27] MEDS ORDERED: Ropivacaine 34 ML, dexAMETHasone 8 MG, EPINEPHrine 0.4 MG, Sodium Chloride 0.9% 43.6 ML NERVRT SCH ×4 (07:30)
[2022-04-27] MEDS ORDERED: Lactated Ringers 1,000 ML ONE (07:52)
[2022-04-27] MEDS: fentaNYL 2,500 MCG in Sodium Chloride 0.9% 200 ML EPIDUR SCH (08:49)
[2022-04-27] MEDS: Naloxone 0.4 MG in Dextrose 5%-Lactated Ringers 1,000 ML IV SCH ×2 (08:58→18:49)
[2022-04-27] MEDS ORDERED: Cyanocobalamin (Vitamin B12) 1,000 MCG/ML SDV IM ONE (09:00)
[2022-04-27] MEDS: Celecoxib 200 MG Cap PO SCH ×2 (09:41→21:27)
[2022-04-27] MEDS: Albumin Human 25 GM in Premix Bag 1 BAG IV SCH (09:44)
[2022-04-27] MEDS: Pantoprazole 40 MG Vial IVPUSH SCH (09:49)
[2022-04-27] MEDS: Ondansetron 4 MG/2 ML SDV IVPUSH PRN ×2 (10:02→18:49)
[2022-04-27] MEDS: Magnesium Sulfate/Water 2 GM in Premix Bag 1 BAG IV SCH ×3 (13:57→21:28)
[2022-04-28] MEDS: Cyclobenzaprine 10 MG Tab PO PRN ×3 (03:33→21:48)
[2022-04-28] MEDS: diphenhydrAMINE 50 MG/ML SDV IVPUSH PRN (03:38)
[2022-04-28] MEDS: Magnesium Sulfate/Water 2 GM in Premix Bag 1 BAG IV SCH ×4 (04:13→23:17)
[2022-04-28 04:50] LABS: ESTIMATED GFR 122 mL/min (>60)
[2022-04-28] MEDS: Naloxone 0.4 MG in Dextrose 5%-Lactated Ringers 1,000 ML IV SCH (05:14)
[2022-04-28] MEDS: fentaNYL 2,500 MCG in Sodium Chloride 0.9% 200 ML EPIDUR SCH (05:15)
[2022-04-28] MEDS: Ondansetron 4 MG/2 ML SDV IVPUSH PRN ×3 (08:08→19:20)
[2022-04-28] MEDS: Acetaminophen 500 MG Tab PO SCH ×2 (08:08→16:38)
[2022-04-28] MEDS: oxyCODONE 5 MG Tab PO PRN ×2 (08:08→11:49)
[2022-04-28] MEDS: Albumin Human 25 GM in Premix Bag 1 BAG IV SCH (08:31)
[2022-04-28] MEDS: Potassium Phos in 0.9 % NaCl 250 ML IV SCH ×2 (08:32→12:13)
[2022-04-28] MEDS: Pantoprazole 40 MG Vial IVPUSH SCH (08:33)
[2022-04-28] MEDS: Celecoxib 200 MG Cap PO SCH ×2 (08:46→21:42)
[2022-04-28] MEDS: hydrOXYzine HCL 100 MG/2 ML SDV IM PRN (10:18)
[2022-04-28] MEDS: Acetaminophen 500 MG Tab PO PRN (11:49)
[2022-04-28] MEDS ORDERED: HYDROmorphone 2 MG Tab PO PRN (13:22)
[2022-04-28] MEDS ORDERED: diphenhydrAMINE 25 MG Cap PO PRN (15:17)
[2022-04-28] MEDS ORDERED: diphenhydrAMINE 50 MG/ML SDV IVPUSH PRN (15:17)
[2022-04-28] MEDS ORDERED: Naloxone 0.4 MG/ML SDV IVPUSH PRN (15:17)
[2022-04-28] MEDS: HYDROmorphone/Normal Saline 6 MG/30 ML PCA Vial IV PRN ×2 (15:33→22:04)
[2022-04-28] MEDS: Metoclopramide 10 MG/2 ML SDV IVPUSH PRN (16:17)
[2022-04-28] MEDS ORDERED: Bisacodyl 10 MG Supp RECTAL ONE (17:00)
[2022-04-28] MEDS: Calcium Carbonate 500 MG Tab.Chew PO PRN (23:47)
[2022-04-29] MEDS: Acetaminophen 500 MG Tab PO SCH ×3 (02:39→16:57)
[2022-04-29] MEDS: Calcium Carbonate 500 MG Tab.Chew PO PRN ×3 (03:42→16:38)
[2022-04-29] MEDS: Metoclopramide 10 MG/2 ML SDV IVPUSH PRN (03:42)
[2022-04-29] MEDS: Magnesium Sulfate/Water 2 GM in Premix Bag 1 BAG IV SCH (03:49)
[2022-04-29] MEDS: Cyclobenzaprine 10 MG Tab PO PRN (06:06)
[2022-04-29] MEDS: Celecoxib 200 MG Cap PO SCH ×2 (08:51→21:55)
[2022-04-29] MEDS: Pantoprazole 40 MG Vial IVPUSH SCH (08:51)
[2022-04-29] MEDS: Albumin Human 25 GM in Premix Bag 1 BAG IV SCH (08:51)
[2022-04-29] MEDS ORDERED: Bisacodyl 10 MG Supp RECTAL PRN (09:07)
[2022-04-29] MEDS: Docusate Sodium 100 MG Cap PO SCH ×2 (10:22→22:07)
[2022-04-29] MEDS: Tamsulosin 0.4 MG Cap.ER PO SCH ×2 (10:22→21:55)
[2022-04-29] MEDS: Bisacodyl 5 MG Tab PO SCH ×2 (10:32→22:07)
[2022-04-29] MEDS: Ondansetron 4 MG/2 ML SDV IVPUSH PRN (10:54)
[2022-04-29] MEDS: HYDROmorphone/Normal Saline 6 MG/30 ML PCA Vial IV PRN ×2 (11:46→19:31)
[2022-04-29] MEDS ORDERED: Lactated Ringers 500 ML IV SCH (13:30)
[2022-04-30] MEDS: Acetaminophen 500 MG Tab PO SCH ×3 (01:25→16:17)
[2022-04-30] MEDS: Dextrose 5%-Lactated Ringers 1,000 ML IV SCH ×3 (02:13→23:05)
[2022-04-30] MEDS: HYDROmorphone/Normal Saline 6 MG/30 ML PCA Vial IV PRN ×3 (04:06→21:19)
[2022-04-30] MEDS: Pantoprazole 40 MG Vial IVPUSH SCH (08:12)
[2022-04-30] MEDS: Docusate Sodium 100 MG Cap PO SCH ×2 (08:12→21:21)
[2022-04-30] MEDS: Bisacodyl 5 MG Tab PO SCH ×2 (08:12→21:21)
[2022-04-30] MEDS: Celecoxib 200 MG Cap PO SCH ×2 (08:12→21:21)
[2022-04-30] MEDS: Azithromycin 250 MG Tab PO SCH ×2 (10:25→21:23)
[2022-04-30] MEDS: Tamsulosin 0.4 MG Cap.ER PO SCH (21:22)
[2022-04-30] MEDS: Cyclobenzaprine 10 MG Tab PO PRN (21:22)
[2022-05-01] MEDS: Acetaminophen 500 MG Tab PO SCH ×4 (00:30→23:45)
[2022-05-01] MEDS: Cyclobenzaprine 10 MG Tab PO PRN ×2 (07:54→15:52)
[2022-05-01] MEDS ORDERED: Ondansetron 4 MG Tab.DIS PO PRN (07:56)
[2022-05-01 08:36] LABS: ESTIMATED GFR 122 mL/min (>60)
[2022-05-01] MEDS: Celecoxib 200 MG Cap PO SCH ×2 (08:44→21:06)
[2022-05-01] MEDS: HYDROmorphone 2 MG Tab PO PRN ×3 (08:44→21:07)
[2022-05-01] MEDS: Bisacodyl 5 MG Tab PO SCH ×2 (08:44→21:07)
[2022-05-01] MEDS: Docusate Sodium 100 MG Cap PO SCH ×2 (08:44→21:07)
[2022-05-01] MEDS: Azithromycin 250 MG Tab PO SCH ×2 (08:44→21:07)
[2022-05-01] MEDS: Pantoprazole 40 MG Tab.CR PO SCH (08:49)
[2022-05-01] MEDS: hydrOXYzine HCL 100 MG/2 ML SDV IM PRN (20:05)
[2022-05-01] MEDS: Tamsulosin 0.4 MG Cap.ER PO SCH (21:07)
[2022-05-02] MEDS: Cyclobenzaprine 10 MG Tab PO PRN ×4 (02:29→21:47)
[2022-05-02] MEDS: HYDROmorphone 2 MG Tab PO PRN ×6 (03:11→23:49)
[2022-05-02] MEDS: Acetaminophen 500 MG Tab PO SCH ×3 (07:37→23:48)
[2022-05-02] MEDS: Pantoprazole 40 MG Tab.CR PO SCH (07:37)
[2022-05-02] MEDS ORDERED: Potassium Chloride 20 MEQ Tab.ER PO ONE (09:00)
[2022-05-02] MEDS: Magnesium Oxide 400 MG Tab PO SCH (09:22)
[2022-05-02] MEDS: Bisacodyl 5 MG Tab PO SCH ×2 (09:23→21:43)
[2022-05-02] MEDS: Azithromycin 250 MG Tab PO SCH ×2 (09:23→21:44)
[2022-05-02] MEDS: hydrOXYzine HCl 25 MG Tab PO SCH ×3 (09:23→21:44)
[2022-05-02] MEDS: Celecoxib 200 MG Cap PO SCH ×2 (09:23→21:44)
[2022-05-02] MEDS: Docusate Sodium 100 MG Cap PO SCH ×2 (09:23→21:44)
[2022-05-02] MEDS ORDERED: Magnesium Hydroxide 400 MG/5 ML Susp 30 ML Cup PO PRN (15:33)
[2022-05-02] MEDS: Tamsulosin 0.4 MG Cap.ER PO SCH (21:44)
[2022-05-03] MEDS: HYDROmorphone 2 MG Tab PO PRN ×2 (04:12→09:06)
[2022-05-03] MEDS: hydrOXYzine HCl 25 MG Tab PO SCH ×2 (04:12→09:05)
[2022-05-03 05:27] LABS: ESTIMATED GFR 122 mL/min (>60)
[2022-05-03] MEDS: Acetaminophen 500 MG Tab PO SCH (08:09)
[2022-05-03] MEDS: Bisacodyl 5 MG Tab PO SCH (08:09)
[2022-05-03] MEDS: Docusate Sodium 100 MG Cap PO SCH (08:09)
[2022-05-03] MEDS: Magnesium Oxide 400 MG Tab PO SCH (08:09)
[2022-05-03] MEDS: Celecoxib 200 MG Cap PO SCH (08:09)
[2022-05-03] MEDS: Azithromycin 250 MG Tab PO SCH (08:09)
[2022-05-03] MEDS: Pantoprazole 40 MG Tab.CR PO SCH (08:09)
[2022-05-03 08:12] VITALS: BP 134/88; PULSE 111
[2022-05-03] MEDS: Cyclobenzaprine 10 MG Tab PO PRN (09:05)
== END 2022-05-03 09:15 | disposition home or self-care (01) | DRG 330 ==
LOC: JP.ED 05:28 → JP.2SS 08:55
PROVIDERS: ADMIT Surgery; ATTEND Surgery
PROC: 3E0M05Z Introduction of Adhesion Barrier into Peritoneal Cavity, Open Approach (ICD-10-PCS; principal; 2022-04-25)
PROC: 0DJD8ZZ Inspection of Lower Intestinal Tract, Via Natural or Artificial Opening Endoscopic (ICD-10-PCS; principal; 2022-04-25)
PROC: 0DB80ZZ Excision of Small Intestine, Open Approach (ICD-10-PCS; principal; 2022-04-25)
PROC: 0DTE0ZZ Resection of Large Intestine, Open Approach (ICD-10-PCS; principal; 2022-04-25)
PROC: 0DBW0ZZ Excision of Peritoneum, Open Approach (ICD-10-PCS; principal; 2022-04-25)
PROC: 0HQ7XZZ Repair Abdomen Skin, External Approach (ICD-10-PCS; 2022-04-27)
DX: K95.89 Other complications of other bariatric procedure (principal); K56.600 Partial intestinal obstruction, unspecified as to cause; Y83.8 Other surgical procedures as the cause of abnormal reaction of the patient, or of later complication, without mention of misadventure at the time of the procedure; K31.89 Other diseases of stomach and duodenum; J45.909 Unspecified asthma, uncomplicated; K21.9 Gastro-esophageal reflux disease without esophagitis; G43.909 Migraine, unspecified, not intractable, without status migrainosus; E66.9 Obesity, unspecified; E53.8 Deficiency of other specified B group vitamins; Z20.822 Contact with and (suspected) exposure to COVID-19; E61.1 Iron deficiency; Z86.16 Personal history of COVID-19; Z86.19 Personal history of other infectious and parasitic diseases; Z88.0 Allergy status to penicillin; Z79.899 Other long term (current) drug therapy; Z87.01 Personal history of pneumonia (recurrent); Z90.89 Acquired absence of other organs; Z98.84 Bariatric surgery status; Z90.49 Acquired absence of other specified parts of digestive tract; Z90.710 Acquired absence of both cervix and uterus; Z68.26 Body mass index [BMI] 26.0-26.9, adult
CPT/HCPCS: 36415; 51701; 51702; 74019; 74019-26; 74177; 74240; 74240-26; 80053; 81001; 82306; 82728; 82746; 83605; 83690; 83735; 84100; 84145; 85025; 85027; 86850; 86900; 86901; 88305; 88307; 96374; 96375; 96376; 99285-25; A9270-GY; C9113; J0171; J0330; J0456; J0694; J1100; J1170; J1200; J2020; J2175; J2185; J2250; J2310; J2405; J2704; J2710; J2765; J2795; J3010; J3410; J3411; J3420; J3475; J3490; J7050; J7120; J7121; P9047; Q9967; U0002

== ENCOUNTER 2022-05-07 23:30 | Emergency (ER) | payer MEDICAID ==
[2022-05-07 23:45] VITALS: BP 120/82; PULSE 109
[2022-05-08] MEDS ORDERED: HYDROmorphone 1 MG/ML Syringe IM ONE (00:18)
== END 2022-05-08 00:32 | disposition home or self-care (01) ==
LOC: JP.ED 23:30
DX: G89.18 Other acute postprocedural pain (principal); R10.32 Left lower quadrant pain; E66.9 Obesity, unspecified; Z68.23 Body mass index [BMI] 23.0-23.9, adult; Z88.0 Allergy status to penicillin
CPT/HCPCS: 96372; 99283; J1170

== ENCOUNTER 2022-05-21 17:06 | Inpatient (IN) | payer MEDICAID ==
[2022-05-21] MEDS ORDERED: HYDROmorphone 1 MG/ML Syringe IM ONE (17:36)
[2022-05-21 18:12] LABS: ESTIMATED GFR 122 mL/min (>60)
[2022-05-21] MEDS ORDERED: Sodium Chloride 0.9% 100 ML IV ONE (18:21)
[2022-05-21] MEDS ORDERED: Sodium Chloride 0.9% 10 ML Syringe FLUSH ONE (18:21)
[2022-05-21] MEDS ORDERED: Ondansetron 4 MG/2 ML SDV IVPUSH ONE (18:30)
[2022-05-21] MEDS ORDERED: HYDROmorphone 0.5 MG/0.5 ML Syringe IVPUSH ONE (18:30)
[2022-05-21] MEDS ORDERED: Iopamidol 612 MG/ML 100 ML Bottle IV SCH (18:30)
[2022-05-21] MEDS ORDERED: Midazolam 1 MG/ML 2 ML SDV IVPUSH ONE (19:01)
[2022-05-21] MEDS ORDERED: Naloxone 0.4 MG/ML SDV IVPUSH PRN ×2 (19:55→19:58)
[2022-05-21] MEDS ORDERED: diphenhydrAMINE 25 MG Cap PO PRN (19:58)
[2022-05-21] MEDS ORDERED: Ondansetron 4 MG/2 ML SDV IVPUSH PRN (19:58)
[2022-05-21] MEDS ORDERED: diphenhydrAMINE 50 MG/ML SDV IVPUSH PRN (19:58)
[2022-05-21] MEDS ORDERED: Lactated Ringers 1,000 ML IV SCH (20:30)
[2022-05-21] MEDS: HYDROmorphone/Normal Saline 6 MG/30 ML PCA Vial IV PRN (20:37)
[2022-05-21] MEDS: Pantoprazole 40 MG Vial IVPUSH SCH (20:46)
[2022-05-21] MEDS ORDERED: Bisacodyl 10 MG Supp RECTAL ONE (21:00)
[2022-05-22] MEDS: Ondansetron 4 MG/2 ML SDV IVPUSH PRN ×3 (00:26→18:02)
[2022-05-22] MEDS: Benzocaine/Cetylpyridinium/Menthol Lozenge MUCMEM PRN ×3 (00:34→17:59)
[2022-05-22] MEDS: Dextrose 5%-Lactated Ringers 1,000 ML IV SCH ×3 (00:37→17:58)
[2022-05-22] MEDS ORDERED: Phenol/Sodium Phenolate Spray 180 ML Bottle MUCMEM PRN (01:25)
[2022-05-22] MEDS: HYDROmorphone/Normal Saline 6 MG/30 ML PCA Vial IV PRN ×2 (03:57→14:14)
[2022-05-22 04:46] LABS: ESTIMATED GFR 122 mL/min (>60)
[2022-05-22] MEDS ORDERED: Naloxone 0.4 MG/ML SDV IV PRN (08:00)
[2022-05-22] MEDS: Pantoprazole 40 MG Vial IVPUSH SCH (09:04)
[2022-05-22] MEDS: Bisacodyl 10 MG Supp RECTAL SCH ×2 (09:05→21:03)
[2022-05-22] MEDS: diphenhydrAMINE 50 MG/ML SDV IVPUSH PRN ×2 (13:56→19:13)
[2022-05-22] MEDS: Lubiprostone 24 MCG Cap PO SCH (17:43)
[2022-05-23] MEDS: HYDROmorphone/Normal Saline 6 MG/30 ML PCA Vial IV PRN ×2 (03:07→13:13)
[2022-05-23] MEDS: Dextrose 5%-Lactated Ringers 1,000 ML IV SCH ×3 (03:08→20:21)
[2022-05-23] MEDS: Ondansetron 4 MG/2 ML SDV IVPUSH PRN ×4 (03:12→22:20)
[2022-05-23] MEDS: diphenhydrAMINE 50 MG/ML SDV IVPUSH PRN ×4 (03:12→22:21)
[2022-05-23] MEDS: Sodium Phosphate,Monobasic/Sodium Phosphate,Dibasic Enema 133 ML Bottle RECTAL SCH ×2 (08:11→15:15)
[2022-05-23] MEDS: Pantoprazole 40 MG Vial IVPUSH SCH (08:11)
[2022-05-23] MEDS: Lubiprostone 24 MCG Cap PO SCH ×2 (08:12→16:55)
[2022-05-23] MEDS: Bisacodyl 10 MG Supp RECTAL SCH ×2 (08:12→20:34)
[2022-05-23] MEDS: Benzocaine/Cetylpyridinium/Menthol Lozenge MUCMEM PRN ×2 (15:15→22:29)
[2022-05-24] MEDS: Dextrose 5%-Lactated Ringers 1,000 ML IV SCH ×2 (05:46→16:36)
[2022-05-24 06:47] LABS: ESTIMATED GFR 122 mL/min (>60)
[2022-05-24] MEDS: diphenhydrAMINE 50 MG/ML SDV IVPUSH PRN (08:12)
[2022-05-24] MEDS: Lubiprostone 24 MCG Cap PO SCH ×2 (08:13→16:35)
[2022-05-24] MEDS: Potassium Chloride 20 MEQ, Lidocaine 1% 2 ML in Sodium Chloride 0.9% 100 ML IV SCH ×3 (08:48→16:33)
[2022-05-24] MEDS: Pantoprazole 40 MG Vial IVPUSH SCH (08:54)
[2022-05-24] MEDS: Magnesium Sulfate/Water 2 GM/50 ML BAG IV SCH ×3 (12:10→23:24)
[2022-05-24] MEDS: Benzocaine/Cetylpyridinium/Menthol Lozenge MUCMEM PRN (14:23)
[2022-05-24] MEDS: HYDROmorphone/Normal Saline 6 MG/30 ML PCA Vial IV PRN (20:23)
[2022-05-25] MEDS: diphenhydrAMINE 50 MG/ML SDV IVPUSH PRN (01:28)
[2022-05-25] MEDS: Magnesium Sulfate/Water 2 GM/50 ML BAG IV SCH ×2 (04:28→08:59)
[2022-05-25 05:16] LABS: ESTIMATED GFR 127 mL/min (>60)
[2022-05-25] MEDS ORDERED: HYDROmorphone 2 MG Tab PO PRN (06:33)
[2022-05-25] MEDS ORDERED: Acetaminophen 325 MG Tab PO SCH (06:45)
[2022-05-25] MEDS ORDERED: Acetaminophen 500 MG Tab PO SCH (07:00)
[2022-05-25 08:07] VITALS: BP 104/56; PULSE 80
[2022-05-25] MEDS ORDERED: Pantoprazole 40 MG Tab.CR PO SCH (08:15)
[2022-05-25] MEDS: Lubiprostone 24 MCG Cap PO SCH (08:55)
[2022-05-25] MEDS: Potassium Chloride 20 MEQ Tab.ER PO SCH ×2 (08:56→12:59)
[2022-05-25] MEDS: Acetaminophen 500 MG Tab PO SCH ×2 (08:56→12:59)
[2022-05-25] MEDS ORDERED: Azithromycin 250 MG Tab PO SCH (09:00)
[2022-05-25] MEDS: Ondansetron 4 MG/2 ML SDV IVPUSH PRN (10:03)
[2022-05-25] MEDS: Dextrose 5%-Lactated Ringers 1,000 ML IV SCH (10:04)
== END 2022-05-25 14:10 | disposition home or self-care (01) | DRG 394 ==
LOC: JP.ED 17:06 → JP.MS 19:30
PROVIDERS: ADMIT Surgery; ATTEND Surgery
PROC: 0D9670Z Drainage of Stomach with Drainage Device, Via Natural or Artificial Opening (ICD-10-PCS; principal; 2022-05-21)
DX: K91.89 Other postprocedural complications and disorders of digestive system (principal); K56.7 Ileus, unspecified; Z20.822 Contact with and (suspected) exposure to COVID-19; K21.9 Gastro-esophageal reflux disease without esophagitis; E66.9 Obesity, unspecified; E55.9 Vitamin D deficiency, unspecified; F32.A Depression, unspecified; Z90.49 Acquired absence of other specified parts of digestive tract; Z88.0 Allergy status to penicillin; Z79.899 Other long term (current) drug therapy; Z87.01 Personal history of pneumonia (recurrent); Z98.84 Bariatric surgery status; Z90.710 Acquired absence of both cervix and uterus
CPT/HCPCS: 36415; 43752; 74019; 74177; 80053; 83735; 84100; 85025; 85027; 86140; 96372; 96374; 96375; 99285-25; A9270-GY; C9113; J0456; J1170; J1200; J2250; J2405; J3475; J3480; J3490; J7120; J7121; Q9967; U0002

== ENCOUNTER 2022-10-19 08:28 | Day surgery (SDC) | payer MEDICAID ==
[2022-10-19] MEDS ORDERED: Lactated Ringers 1,000 ML IV SCH (09:00)
[2022-10-19] MEDS ORDERED: Cyanocobalamin (Vitamin B12) 1,000 MCG/ML SDV IM ONE (09:00)
[2022-10-19] MEDS ORDERED: Glycopyrrolate 0.2 MG/ML 2 ML SDV IVPUSH ONE (09:30)
[2022-10-19] MEDS ORDERED: Propofol 200 MG/20 ML SDV ONE (09:58)
[2022-10-19] MEDS ORDERED: Midazolam 1 MG/ML 2 ML SDV ONE (09:58)
[2022-10-19] MEDS ORDERED: fentaNYL 100 MCG/2 ML SDV ONE (09:58)
[2022-10-19] MEDS ORDERED: MVI, Adult with Vitamin K 10 ML, Thiamine 200 MG, Zinc/Copper/Manganese/Selenium 1 ML i... IV ONE ×4 (10:00)
[2022-10-19 11:51] VITALS: BP 110/73; PULSE 78
== END 2022-10-19 12:21 | disposition home or self-care (01) ==
LOC: JP.SDS 08:28
PROVIDERS: ATTEND Surgery
DX: K22.89 Other specified disease of esophagus (principal); R12 Heartburn; K21.9 Gastro-esophageal reflux disease without esophagitis; F32.A Depression, unspecified; E66.9 Obesity, unspecified; Z68.25 Body mass index [BMI] 25.0-25.9, adult; Z98.84 Bariatric surgery status
CPT/HCPCS: 43235; J2250; J2704; J3010; J3411; J3420; J3490; J7120

== ENCOUNTER 2023-01-02 05:15 | Inpatient (IN) | payer MEDICAID ==
[2023-01-02] MEDS ORDERED: Scopolamine 1.5 MG Transdermal Patch TOP ONE (05:45)
[2023-01-02 05:49] LABS: HEMOGLOBIN 12.3 g/dL (11.2-15.5); MEAN CORPUSCULAR HEMOGLOBIN 29.9 pg (31.6-35.5); MEAN CORPUSCULAR HGB CONC 34.2 g/dL (31.6-35.5); MEAN CORPUSCULAR VOLUME 87.6 fL (81.4-99.0); RED BLOOD CELL COUNT 4.11 M/uL (3.77-5.24); WHITE BLOOD CELL COUNT,WBC 4.2 K/uL (3.2-11.0)
[2023-01-02] MEDS ORDERED: Albuterol/Ipratropium 3.0-0.5 MG/3 ML Neb Soln NEB ONE (05:57)
[2023-01-02] MEDS ORDERED: Dextrose 5%-Lactated Ringers 1,000 ML IV SCH (06:00)
[2023-01-02 06:20] LABS: A/G RATIO 1.2 (1.2-2.2); ALANINE AMINOTRANSFERASE,ALT 37 U/L (12-78); ALBUMIN 3.5 g/dL (3.4-5.0); ALKALINE PHOSPHATASE 84 U/L (46-116); ASPARTATE AMNIOTRANSFERASE,AST 19 U/L (15-37); BILIRUBIN TOTAL 0.5 mg/dL (0.2-1.0); BLOOD UREA NITROGEN,BUN 5 mg/dL (7-18); CALCIUM 8.3 mg/dL (8.5-10.1); CARBON DIOXIDE,CO2 28 mmol/L (21-32); CHLORIDE,CL 108 mmol/L (100-108); CREATININE 0.8 mg/dL (0.6-1.0); EST CRCL DRUG DOSING (CG) 91.21 mL/min; ESTIMATED GFR 104 mL/min (>60); FERRITIN 98 ng/ml (8-388); GLUCOSE RANDOM 92 mg/dL (74-106); PHOSPHORUS 4.5 mg/dL (2.5-4.9); POTASSIUM,K 3.5 mmol/L (3.6-5.2); PROTEIN TOTAL,TP 6.5 g/dL (6.4-8.2); SODIUM,NA 144 mmol/L (140-148)
[2023-01-02 06:21] LABS: ANION GAP 11.5 mmol/L (5.0-14.0)
[2023-01-02] MEDS ORDERED: Lidocaine 1% with EPINEPHrine 1:100,000 50 ML MDV ONE (06:51)
[2023-01-02] MEDS ORDERED: Meropenem 500 MG SDV ONE (06:51)
[2023-01-02] MEDS ORDERED: Bupivacaine 0.5% 50 ML MDV ONE (06:51)
[2023-01-02] MEDS ORDERED: Neostigmine Methylsulfate 1 MG/ML 5 ML Syringe ONE (07:02)
[2023-01-02] MEDS ORDERED: Rocuronium 50 MG/5 ML Vial ONE (07:02)
[2023-01-02] MEDS ORDERED: Glycopyrrolate 0.2 MG/ML 5 ML MDV ONE (07:02)
[2023-01-02] MEDS ORDERED: Propofol 200 MG/20 ML SDV ONE (07:02)
[2023-01-02] MEDS ORDERED: Succinylcholine 200 MG/10 ML MDV ONE (07:02)
[2023-01-02] MEDS ORDERED: Ondansetron 4 MG/2 ML SDV ONE (07:02)
[2023-01-02] MEDS ORDERED: Dexamethasone 4 MG/ML SDV ONE (07:02)
[2023-01-02] MEDS ORDERED: fentaNYL 250 MCG/5 ML SDV ONE ×2 (07:04→07:37)
[2023-01-02] MEDS ORDERED: cefOXitin 2 GM in Sodium Chloride 0.9% 50 ML IV ONE (07:15)
[2023-01-02] MEDS ORDERED: HYDROmorphone/Normal Saline 6 MG/30 ML PCA Vial IV PRN (07:23)
[2023-01-02] MEDS ORDERED: diphenhydrAMINE 25 MG Cap PO PRN (07:23)
[2023-01-02] MEDS ORDERED: Naloxone 0.4 MG/ML SDV IVPUSH PRN (07:23)
[2023-01-02] MEDS ORDERED: diphenhydrAMINE 50 MG/ML SDV IVPUSH PRN (07:23)
[2023-01-02] MEDS ORDERED: Ondansetron 4 MG/2 ML SDV IVPUSH PRN (07:23)
[2023-01-02] MEDS ORDERED: Ketamine 500 MG/5 ML MDV IV SCH (07:30)
[2023-01-02] MEDS ORDERED: Ketamine 16 MG in Sodium Chloride 0.9% 19.84 ML IV SCH (07:30)
[2023-01-02] MEDS ORDERED: Ropivacaine 35 ML, dexAMETHasone 8 MG, EPINEPHrine 0.4 MG, Sodium Chloride 0.9% 42.6 ML NERVRT SCH ×4 (07:30)
[2023-01-02] MEDS ORDERED: Naloxone 0.4 MG/ML SDV IV PRN (08:00)
[2023-01-02] MEDS ORDERED: Lactated Ringers 1,000 ML ONE (08:28)
[2023-01-02] MEDS ORDERED: hydrOXYzine HCL 100 MG/2 ML SDV IM PRN (10:45)
[2023-01-02] MEDS ORDERED: Albuterol/Ipratropium 3.0-0.5 MG/3 ML Neb Soln INH PRN (10:45)
[2023-01-02] MEDS ORDERED: Metoclopramide 10 MG/2 ML SDV IVPUSH PRN (10:45)
[2023-01-02] MEDS ORDERED: Labetalol 20 MG/4 ML Syringe IVPUSH PRN (10:45)
[2023-01-02] MEDS ORDERED: Acetaminophen 500 MG Tab PO PRN (10:45)
[2023-01-02] MEDS: Cyclobenzaprine 10 MG Tab PO PRN ×2 (10:48→19:51)
[2023-01-02] MEDS: Pantoprazole 40 MG Vial IVPUSH SCH (10:49)
[2023-01-02] MEDS: diphenhydrAMINE 50 MG/ML SDV IVPUSH PRN ×2 (11:34→17:21)
[2023-01-02] MEDS: fentaNYL/Normal Saline 600 MCG/30 ML PCA Vial IV PRN (13:00)
[2023-01-02] MEDS: Albuterol/Ipratropium 3.0-0.5 MG/3 ML Neb Soln INH SCH ×3 (13:02→20:38)
[2023-01-02] MEDS: Dextrose 5%-Lactated Ringers 1,000 ML IV SCH ×2 (14:44→23:11)
[2023-01-02] MEDS: cefOXitin 2 GM in Sodium Chloride 0.9% 50 ML IV SCH ×2 (14:44→20:35)
[2023-01-02] MEDS: Acetaminophen 500 MG Tab PO SCH ×2 (14:45→22:57)
[2023-01-02] MEDS: hydrOXYzine HCL 100 MG/2 ML SDV IM PRN (15:50)
[2023-01-02] MEDS: MVI, Adult with Vitamin K 10 ML, Thiamine 200 MG, Zinc/Copper/Manganese/Selenium 1 ML i... IV SCH ×4 (17:16)
[2023-01-02] MEDS: Methocarbamol 500 MG Tab PO PRN (17:22)
[2023-01-02] MEDS: Amitriptyline 25 MG Tab PO SCH (20:37)
[2023-01-02] MEDS: Sennosides/Docusate Sodium 50-8.6 MG Tab PO SCH (20:37)
[2023-01-02] MEDS ORDERED: Amitriptyline 25 MG Tab PO SCH (21:00)
[2023-01-03] MEDS: fentaNYL/Normal Saline 600 MCG/30 ML PCA Vial IV PRN ×2 (01:53→17:18)
[2023-01-03] MEDS: cefOXitin 2 GM in Sodium Chloride 0.9% 50 ML IV SCH ×4 (01:57→19:56)
[2023-01-03] MEDS ORDERED: Iopamidol 612 MG/ML 50 ML SDV PO ONE (04:04)
[2023-01-03] MEDS: Dextrose 5%-Lactated Ringers 1,000 ML IV SCH (05:12)
[2023-01-03] MEDS: Acetaminophen 500 MG Tab PO SCH ×3 (05:19→21:15)
[2023-01-03] MEDS: hydrOXYzine HCL 100 MG/2 ML SDV IM PRN ×2 (05:30→13:35)
[2023-01-03] MEDS: Albuterol/Ipratropium 3.0-0.5 MG/3 ML Neb Soln INH SCH ×4 (06:58→19:59)
[2023-01-03] MEDS: Celecoxib 200 MG Cap PO SCH ×2 (08:00→19:59)
[2023-01-03] MEDS: Sennosides/Docusate Sodium 50-8.6 MG Tab PO SCH ×2 (08:00→19:59)
[2023-01-03] MEDS: Lubiprostone 24 MCG Cap PO SCH ×2 (08:00→16:16)
[2023-01-03] MEDS: SCOPOLAMINE PATCH CHECK TOP SCH (08:00)
[2023-01-03] MEDS: diphenhydrAMINE 50 MG/ML SDV IVPUSH PRN (10:24)
[2023-01-03] MEDS: Ondansetron 4 MG/2 ML SDV IVPUSH PRN (10:25)
[2023-01-03] MEDS: Pantoprazole 40 MG Vial IVPUSH SCH (10:25)
[2023-01-03] MEDS: Cyclobenzaprine 10 MG Tab PO PRN (10:38)
[2023-01-03] MEDS: Methocarbamol 500 MG Tab PO PRN (13:35)
[2023-01-03] MEDS: MVI, Adult with Vitamin K 10 ML, Thiamine 200 MG, Zinc/Copper/Manganese/Selenium 1 ML i... IV SCH ×4 (16:16)
[2023-01-03] MEDS: Amitriptyline 25 MG Tab PO SCH (20:04)
[2023-01-04 05:07] LABS: BASOPHILS PERCENT AUTO 0.4 % (0.1-1.3); EOSINOPHILS ABSOLUTE AUTO 0.07 K/uL (0.00-0.40); EOSINOPHILS PERCENT AUTO 1.3 % (0.0-5.4); HEMATOCRIT 34.7 % (34.3-46.0); HEMOGLOBIN 11.7 g/dL (11.2-15.5); IMMATURE GRAN PERCENT AUTO 0.2 % (0.0-0.7); LYMPHOCYTES ABSOLUTE AUTO 1.56 K/uL (0.8-3.3); LYMPHOCYTES PERCENT AUTO 28.8 % (11.4-47.7); MEAN CORPUSCULAR HEMOGLOBIN 30.2 pg (31.6-35.5); MEAN CORPUSCULAR HGB CONC 33.7 g/dL (31.6-35.5); MEAN CORPUSCULAR VOLUME 89.7 fL (81.4-99.0); MONOCYTES PERCENT AUTO 7.4 % (3.3-12.6); NEUTROPHILS ABSOLUTE AUTO 3.36 K/uL (1.0-7.6); NEUTROPHILS PERCENT AUTO 61.9 % (40.0-78.1); PLATELET COUNT,PLT 171 K/uL (130-375); RED BLOOD CELL COUNT 3.87 M/uL (3.77-5.24); WHITE BLOOD CELL COUNT,WBC 5.4 K/uL (3.2-11.0)
[2023-01-04 05:14] LABS: BASOPHILS ABSOLUTE AUTO 0.02 K/uL (0.00-0.10); IMMATURE GRAN ABSOLUTE AUTO 0.01 K/uL (0.00-0.23)
[2023-01-04 05:31] LABS: A/G RATIO 1.1 (1.2-2.2); ALANINE AMINOTRANSFERASE,ALT 138 U/L (12-78); ALBUMIN 2.8 g/dL (3.4-5.0); ALKALINE PHOSPHATASE 75 U/L (46-116); ASPARTATE AMNIOTRANSFERASE,AST 79 U/L (15-37); BILIRUBIN TOTAL 0.6 mg/dL (0.2-1.0); BLOOD UREA NITROGEN,BUN 5 mg/dL (7-18); CALCIUM 8.1 mg/dL (8.5-10.1); CARBON DIOXIDE,CO2 33 mmol/L (21-32); CHLORIDE,CL 107 mmol/L (100-108); CREATININE 0.7 mg/dL (0.6-1.0); ESTIMATED GFR 121 mL/min (>60); GLUCOSE RANDOM 91 mg/dL (74-106); MAGNESIUM 1.8 mg/dL (1.8-2.4); PHOSPHORUS 4.5 mg/dL (2.5-4.9); POTASSIUM,K 3.9 mmol/L (3.6-5.2); PROTEIN TOTAL,TP 5.4 g/dL (6.4-8.2); SODIUM,NA 143 mmol/L (140-148)
[2023-01-04 05:32] LABS: ANION GAP 6.9 mmol/L (5.0-14.0)
[2023-01-04] MEDS: Acetaminophen 500 MG Tab PO SCH ×3 (05:37→21:26)
[2023-01-04] MEDS ORDERED: Propofol 200 MG/20 ML SDV ONE ×2 (07:02→07:51)
[2023-01-04] MEDS ORDERED: Midazolam 1 MG/ML 2 ML SDV ONE (07:02)
[2023-01-04] MEDS ORDERED: fentaNYL 100 MCG/2 ML SDV ONE (07:02)
[2023-01-04] MEDS: Albuterol/Ipratropium 3.0-0.5 MG/3 ML Neb Soln INH SCH ×4 (07:05→21:25)
[2023-01-04] MEDS ORDERED: Ropivacaine 35 ML, dexAMETHasone 8 MG, EPINEPHrine 0.4 MG, Sodium Chloride 0.9% 42.6 ML NERVRT SCH ×4 (07:30)
[2023-01-04] MEDS: Lidocaine 1% 50 ML MDV ONE ×2 (07:37→07:54)
[2023-01-04] MEDS: Bupivacaine 0.5%/EPINEPHrine 1:200,000 50 ML MDV ONE ×2 (07:37→07:54)
[2023-01-04] MEDS: Meropenem 500 MG SDV ONE ×2 (07:38→07:56)
[2023-01-04] MEDS ORDERED: Lactated Ringers 1,000 ML ONE (07:47)
[2023-01-04] MEDS: Sennosides/Docusate Sodium 50-8.6 MG Tab PO SCH ×2 (08:59→21:26)
[2023-01-04] MEDS ORDERED: Cyanocobalamin (Vitamin B12) 1,000 MCG/ML SDV IM ONE (09:00)
[2023-01-04] MEDS: Lubiprostone 24 MCG Cap PO SCH (09:03)
[2023-01-04] MEDS: SCOPOLAMINE PATCH CHECK TOP SCH (09:05)
[2023-01-04] MEDS: Celecoxib 200 MG Cap PO SCH ×2 (09:05→21:27)
[2023-01-04] MEDS: Pantoprazole 40 MG Vial IVPUSH SCH (10:07)
[2023-01-04] MEDS: fentaNYL/Normal Saline 600 MCG/30 ML PCA Vial IV PRN ×2 (10:39→20:23)
[2023-01-04] MEDS: Dextrose 5%-Lactated Ringers 1,000 ML IV SCH (16:50)
[2023-01-04] MEDS: Amitriptyline 25 MG Tab PO SCH (21:27)
[2023-01-04] MEDS: diphenhydrAMINE 50 MG/ML SDV IVPUSH PRN (23:26)
[2023-01-04] MEDS: Ondansetron 4 MG/2 ML SDV IVPUSH PRN (23:27)
[2023-01-05] MEDS: Dextrose 5%-Lactated Ringers 1,000 ML IV SCH (02:54)
[2023-01-05] MEDS: Acetaminophen 500 MG Tab PO SCH ×3 (05:25→21:00)
[2023-01-05] MEDS: Albuterol/Ipratropium 3.0-0.5 MG/3 ML Neb Soln INH SCH ×4 (07:01→20:03)
[2023-01-05] MEDS: Sennosides/Docusate Sodium 50-8.6 MG Tab PO SCH ×2 (08:04→20:03)
[2023-01-05] MEDS: Pantoprazole 40 MG Tab.CR PO SCH (08:04)
[2023-01-05] MEDS: Celecoxib 200 MG Cap PO SCH ×2 (08:05→20:03)
[2023-01-05] MEDS: HYDROmorphone 2 MG Tab PO PRN ×4 (09:00→21:43)
[2023-01-05] MEDS: Cyclobenzaprine 10 MG Tab PO PRN (13:05)
[2023-01-05] MEDS: Ondansetron 4 MG/2 ML SDV IVPUSH PRN ×2 (13:06→20:09)
[2023-01-05] MEDS: Amitriptyline 25 MG Tab PO SCH (20:03)
[2023-01-05] MEDS: Bisacodyl 5 MG Tab PO SCH (21:00)
[2023-01-05] MEDS: Methocarbamol 500 MG Tab PO PRN (21:00)
[2023-01-05] MEDS ORDERED: Ondansetron 4 MG/2 ML SDV IVPUSH PRN (23:03)
[2023-01-05] MEDS ORDERED: Naloxone 0.4 MG/ML SDV IVPUSH PRN (23:03)
[2023-01-05] MEDS ORDERED: diphenhydrAMINE 50 MG/ML SDV IVPUSH PRN (23:03)
[2023-01-05] MEDS ORDERED: diphenhydrAMINE 25 MG Cap PO PRN (23:03)
[2023-01-05] MEDS ORDERED: HYDROmorphone/Normal Saline 6 MG/30 ML PCA Vial IV PRN (23:03)
[2023-01-05] MEDS: fentaNYL/Normal Saline 600 MCG/30 ML PCA Vial IV SCH (23:31)
[2023-01-06] MEDS: Ondansetron 4 MG/2 ML SDV IVPUSH PRN ×3 (02:13→19:31)
[2023-01-06] MEDS: Acetaminophen 500 MG Tab PO SCH ×3 (05:57→21:32)
[2023-01-06] MEDS: Albuterol/Ipratropium 3.0-0.5 MG/3 ML Neb Soln INH SCH ×4 (07:13→21:31)
[2023-01-06] MEDS: Celecoxib 200 MG Cap PO SCH ×2 (08:56→21:30)
[2023-01-06] MEDS: Bisacodyl 5 MG Tab PO SCH ×2 (08:56→21:31)
[2023-01-06] MEDS: Sennosides/Docusate Sodium 50-8.6 MG Tab PO SCH ×2 (08:56→21:32)
[2023-01-06] MEDS: Pantoprazole 40 MG Tab.CR PO SCH (08:57)
[2023-01-06] MEDS: fentaNYL/Normal Saline 600 MCG/30 ML PCA Vial IV SCH (10:16)
[2023-01-06] MEDS: diphenhydrAMINE 50 MG/ML SDV IVPUSH PRN (19:31)
[2023-01-06] MEDS: Amitriptyline 25 MG Tab PO SCH (21:31)
[2023-01-07] MEDS: fentaNYL/Normal Saline 600 MCG/30 ML PCA Vial IV SCH (04:14)
[2023-01-07 04:55] LABS: HEMATOCRIT 44.7 % (34.3-46.0); HEMOGLOBIN 15.2 g/dL (11.2-15.5); MEAN CORPUSCULAR HEMOGLOBIN 30.1 pg (31.6-35.5); MEAN CORPUSCULAR VOLUME 88.5 fL (81.4-99.0); RED BLOOD CELL COUNT 5.05 M/uL (3.77-5.24)
[2023-01-07] MEDS: Acetaminophen 500 MG Tab PO SCH ×3 (05:08→21:20)
[2023-01-07 05:42] LABS: A/G RATIO 0.9 (1.2-2.2); ALANINE AMINOTRANSFERASE,ALT 82 U/L (12-78); ALBUMIN 3.2 g/dL (3.4-5.0); ALKALINE PHOSPHATASE 131 U/L (46-116); ANION GAP 7.1 mmol/L (5.0-14.0); ASPARTATE AMNIOTRANSFERASE,AST 37 U/L (15-37); BILIRUBIN TOTAL 1.1 mg/dL (0.2-1.0); BLOOD UREA NITROGEN,BUN 15 mg/dL (7-18); CALCIUM 8.9 mg/dL (8.5-10.1); CARBON DIOXIDE,CO2 31 mmol/L (21-32); CHLORIDE,CL 102 mmol/L (100-108); CREATININE 0.9 mg/dL (0.6-1.0); EST CRCL DRUG DOSING (CG) 81.67 mL/min; ESTIMATED GFR 90 mL/min (>60); GLUCOSE RANDOM 115 mg/dL (74-106); PHOSPHORUS 4.7 mg/dL (2.5-4.9); POTASSIUM,K 4.1 mmol/L (3.6-5.2); PROTEIN TOTAL,TP 6.8 g/dL (6.4-8.2); SODIUM,NA 140 mmol/L (140-148)
[2023-01-07] MEDS: Albuterol/Ipratropium 3.0-0.5 MG/3 ML Neb Soln INH SCH ×4 (07:37→21:20)
[2023-01-07] MEDS: Bisacodyl 5 MG Tab PO SCH ×2 (09:06→21:20)
[2023-01-07] MEDS: Pantoprazole 40 MG Tab.CR PO SCH (09:06)
[2023-01-07] MEDS: Celecoxib 200 MG Cap PO SCH ×2 (09:06→21:20)
[2023-01-07] MEDS: Sennosides/Docusate Sodium 50-8.6 MG Tab PO SCH ×2 (09:06→21:19)
[2023-01-07] MEDS: Dextrose 5%-Lactated Ringers 1,000 ML IV SCH ×2 (09:09→19:08)
[2023-01-07] MEDS: Amitriptyline 25 MG Tab PO SCH (21:20)
[2023-01-07] MEDS: Ondansetron 4 MG/2 ML SDV IVPUSH PRN (21:24)
[2023-01-08 04:34] LABS: HEMOGLOBIN 11.7 g/dL (11.2-15.5); MEAN CORPUSCULAR HEMOGLOBIN 29.5 pg (31.6-35.5); MEAN CORPUSCULAR HGB CONC 33.4 g/dL (31.6-35.5); MEAN CORPUSCULAR VOLUME 88.2 fL (81.4-99.0); RED BLOOD CELL COUNT 3.97 M/uL (3.77-5.24); WHITE BLOOD CELL COUNT,WBC 4.5 K/uL (3.2-11.0)
[2023-01-08 04:56] LABS: A/G RATIO 0.9 (1.2-2.2); ALANINE AMINOTRANSFERASE,ALT 51 U/L (12-78); ALBUMIN 2.4 g/dL (3.4-5.0); ALKALINE PHOSPHATASE 91 U/L (46-116); ASPARTATE AMNIOTRANSFERASE,AST 27 U/L (15-37); BILIRUBIN TOTAL 0.6 mg/dL (0.2-1.0); BLOOD UREA NITROGEN,BUN 11 mg/dL (7-18); CALCIUM 8.1 mg/dL (8.5-10.1); CARBON DIOXIDE,CO2 28 mmol/L (21-32); CHLORIDE,CL 105 mmol/L (100-108); CREATININE 0.6 mg/dL (0.6-1.0); ESTIMATED GFR 126 mL/min (>60); GLUCOSE RANDOM 105 mg/dL (74-106); MAGNESIUM 1.8 mg/dL (1.8-2.4); POTASSIUM,K 3.8 mmol/L (3.6-5.2); PROTEIN TOTAL,TP 5.2 g/dL (6.4-8.2); SODIUM,NA 139 mmol/L (140-148)
[2023-01-08 05:13] LABS: ANION GAP 9.8 mmol/L (5.0-14.0)
[2023-01-08] MEDS: Acetaminophen 500 MG Tab PO SCH ×3 (05:24→21:05)
[2023-01-08] MEDS: Dextrose 5%-Lactated Ringers 1,000 ML IV SCH ×3 (05:27→21:09)
[2023-01-08] MEDS: Albuterol/Ipratropium 3.0-0.5 MG/3 ML Neb Soln INH SCH ×4 (06:56→21:04)
[2023-01-08] MEDS: Sennosides/Docusate Sodium 50-8.6 MG Tab PO SCH ×2 (08:03→21:04)
[2023-01-08] MEDS: Bisacodyl 5 MG Tab PO SCH ×2 (08:03→21:04)
[2023-01-08] MEDS: Celecoxib 200 MG Cap PO SCH ×2 (08:04→21:04)
[2023-01-08] MEDS: Pantoprazole 40 MG Tab.CR PO SCH (08:04)
[2023-01-08] MEDS: fentaNYL/Normal Saline 600 MCG/30 ML PCA Vial IV SCH (09:47)
[2023-01-08] MEDS: Ondansetron 4 MG/2 ML SDV IVPUSH PRN (13:57)
[2023-01-08] MEDS: diphenhydrAMINE 50 MG/ML SDV IVPUSH PRN (17:22)
[2023-01-08] MEDS: Amitriptyline 25 MG Tab PO SCH (21:05)
[2023-01-09 05:14] LABS: HEMATOCRIT 31.2 % (34.3-46.0); MEAN CORPUSCULAR HEMOGLOBIN 30.7 pg (31.6-35.5); MEAN CORPUSCULAR HGB CONC 35.3 g/dL (31.6-35.5); MEAN CORPUSCULAR VOLUME 87.2 fL (81.4-99.0); RED BLOOD CELL COUNT 3.58 M/uL (3.77-5.24); WHITE BLOOD CELL COUNT,WBC 4.8 K/uL (3.2-11.0)
[2023-01-09 05:49] LABS: A/G RATIO 0.8 (1.2-2.2); ALANINE AMINOTRANSFERASE,ALT 38 U/L (12-78); ALBUMIN 2.1 g/dL (3.4-5.0); ALKALINE PHOSPHATASE 82 U/L (46-116); ASPARTATE AMNIOTRANSFERASE,AST 18 U/L (15-37); BILIRUBIN TOTAL 0.4 mg/dL (0.2-1.0); BLOOD UREA NITROGEN,BUN 9 mg/dL (7-18); CALCIUM 7.9 mg/dL (8.5-10.1); CARBON DIOXIDE,CO2 28 mmol/L (21-32); CHLORIDE,CL 106 mmol/L (100-108); CREATININE 0.5 mg/dL (0.6-1.0); ESTIMATED GFR 132 mL/min (>60); GLUCOSE RANDOM 99 mg/dL (74-106); MAGNESIUM 1.6 mg/dL (1.8-2.4); PHOSPHORUS 4.4 mg/dL (2.5-4.9); POTASSIUM,K 3.6 mmol/L (3.6-5.2); PROTEIN TOTAL,TP 4.8 g/dL (6.4-8.2); SODIUM,NA 138 mmol/L (140-148)
[2023-01-09 05:50] LABS: ANION GAP 7.6 mmol/L (5.0-14.0)
[2023-01-09] MEDS: Acetaminophen 500 MG Tab PO SCH ×3 (05:57→22:14)
[2023-01-09] MEDS: Albuterol/Ipratropium 3.0-0.5 MG/3 ML Neb Soln INH SCH ×4 (07:15→20:10)
[2023-01-09] MEDS ORDERED: ceFAZolin 2 GM in Premix Bag 1 BAG IV ONE ×2 (07:30→11:30)
[2023-01-09] MEDS: Pantoprazole 40 MG Tab.CR PO SCH (07:41)
[2023-01-09] MEDS: Dextrose 5%-Lactated Ringers 1,000 ML IV SCH ×2 (07:59→15:36)
[2023-01-09] MEDS: Magnesium Sulfate/Water 2 GM/50 ML BAG IV SCH ×3 (08:00→20:08)
[2023-01-09] MEDS ORDERED: Bupivacaine 0.5% 50 ML MDV ONE (08:13)
[2023-01-09] MEDS ORDERED: Lidocaine 1% with EPINEPHrine 1:100,000 50 ML MDV ONE (08:14)
[2023-01-09] MEDS: Sennosides/Docusate Sodium 50-8.6 MG Tab PO SCH ×2 (08:16→20:12)
[2023-01-09] MEDS: Bisacodyl 5 MG Tab PO SCH ×2 (08:16→20:09)
[2023-01-09] MEDS: Celecoxib 200 MG Cap PO SCH ×2 (08:16→20:12)
[2023-01-09] MEDS ORDERED: fentaNYL 100 MCG/2 ML SDV ONE (09:46)
[2023-01-09] MEDS ORDERED: Midazolam 1 MG/ML 2 ML SDV ONE (09:46)
[2023-01-09] MEDS ORDERED: Propofol 200 MG/20 ML SDV ONE ×2 (09:46→14:13)
[2023-01-09] MEDS: fentaNYL/Normal Saline 600 MCG/30 ML PCA Vial IV SCH (17:07)
[2023-01-09] MEDS: 1: AA 5%/Calcium/D15W/Lytes 1,000 ML with MVI, Adult with Vitamin K 10 ML, Zinc/Copper/M IV SCH ×3 (17:50)
[2023-01-09] MEDS ORDERED: Dextrose 5%-Lactated Ringers 1,000 ML IV SCH (18:00)
[2023-01-09] MEDS: Amitriptyline 25 MG Tab PO SCH (20:13)
[2023-01-10] MEDS: Magnesium Sulfate/Water 2 GM/50 ML BAG IV SCH ×4 (02:40→19:28)
[2023-01-10] MEDS: 1: AA 5%/Calcium/D15W/Lytes 1,000 ML with MVI, Adult with Vitamin K 10 ML, Zinc/Copper/M IV SCH ×6 (04:22→14:04)
[2023-01-10 04:25] LABS: HEMOGLOBIN 10.2 g/dL (11.2-15.5); MEAN CORPUSCULAR HEMOGLOBIN 30.5 pg (31.6-35.5); MEAN CORPUSCULAR HGB CONC 35.2 g/dL (31.6-35.5); MEAN CORPUSCULAR VOLUME 86.8 fL (81.4-99.0); RED BLOOD CELL COUNT 3.34 M/uL (3.77-5.24)
[2023-01-10 04:50] LABS: A/G RATIO 0.7 (1.2-2.2); ALANINE AMINOTRANSFERASE,ALT 30 U/L (12-78); ALBUMIN 1.9 g/dL (3.4-5.0); ALKALINE PHOSPHATASE 73 U/L (46-116); ASPARTATE AMNIOTRANSFERASE,AST 10 U/L (15-37); BILIRUBIN TOTAL 0.3 mg/dL (0.2-1.0); BLOOD UREA NITROGEN,BUN 7 mg/dL (7-18); CALCIUM 7.4 mg/dL (8.5-10.1); CARBON DIOXIDE,CO2 30 mmol/L (21-32); CHLORIDE,CL 105 mmol/L (100-108); CREATININE 0.3 mg/dL (0.6-1.0); EST CRCL DRUG DOSING (CG) 245.01 mL/min; ESTIMATED GFR 149 mL/min (>60); GLUCOSE RANDOM 113 mg/dL (74-106); PHOSPHORUS 5.1 mg/dL (2.5-4.9); POTASSIUM,K 3.7 mmol/L (3.6-5.2); PROTEIN TOTAL,TP 4.6 g/dL (6.4-8.2); SODIUM,NA 138 mmol/L (140-148)
[2023-01-10 05:17] LABS: ANION GAP 6.7 mmol/L (5.0-14.0)
[2023-01-10] MEDS: Acetaminophen 500 MG Tab PO SCH ×3 (06:01→21:39)
[2023-01-10] MEDS ORDERED: Albuterol/Ipratropium 3.0-0.5 MG/3 ML Neb Soln INH PRN (06:24)
[2023-01-10] MEDS: Pantoprazole 40 MG Tab.CR PO SCH (07:32)
[2023-01-10] MEDS ORDERED: hydrOXYzine HCl 25 MG Tab PO PRN (07:52)
[2023-01-10] MEDS ORDERED: Central Total Parenteral Nutrition Bag SCH (08:00)
[2023-01-10] MEDS: Celecoxib 200 MG Cap PO SCH ×2 (08:41→21:39)
[2023-01-10] MEDS: Sennosides/Docusate Sodium 50-8.6 MG Tab PO SCH ×2 (08:41→21:38)
[2023-01-10] MEDS: Bisacodyl 5 MG Tab PO SCH ×2 (08:41→21:38)
[2023-01-10] MEDS: HYDROmorphone 2 MG Tab PO PRN ×4 (08:41→21:36)
[2023-01-10] MEDS: Amitriptyline 25 MG Tab PO SCH (21:39)
[2023-01-10] MEDS: Ondansetron 4 MG/2 ML SDV IVPUSH PRN (21:42)
[2023-01-11] MEDS: 1: AA 5%/Calcium/D15W/Lytes 1,000 ML with MVI, Adult with Vitamin K 10 ML, Zinc/Copper/M IV SCH ×3 (00:15)
[2023-01-11] MEDS: HYDROmorphone 2 MG Tab PO PRN ×2 (02:24→07:38)
[2023-01-11] MEDS: Magnesium Sulfate/Water 2 GM/50 ML BAG IV SCH ×2 (02:24→07:36)
[2023-01-11 04:47] LABS: HEMATOCRIT 28.2 % (34.3-46.0); HEMOGLOBIN 9.5 g/dL (11.2-15.5); MEAN CORPUSCULAR HEMOGLOBIN 30.2 pg (31.6-35.5); MEAN CORPUSCULAR HGB CONC 33.7 g/dL (31.6-35.5); MEAN CORPUSCULAR VOLUME 89.5 fL (81.4-99.0); RED BLOOD CELL COUNT 3.15 M/uL (3.77-5.24); WHITE BLOOD CELL COUNT,WBC 3.4 K/uL (3.2-11.0)
[2023-01-11 05:18] LABS: A/G RATIO 0.7 (1.2-2.2); ALANINE AMINOTRANSFERASE,ALT 26 U/L (12-78); ALBUMIN 1.8 g/dL (3.4-5.0); ALKALINE PHOSPHATASE 67 U/L (46-116); ASPARTATE AMNIOTRANSFERASE,AST 18 U/L (15-37); BILIRUBIN TOTAL 0.2 mg/dL (0.2-1.0); BLOOD UREA NITROGEN,BUN 10 mg/dL (7-18); CALCIUM 7.7 mg/dL (8.5-10.1); CARBON DIOXIDE,CO2 28 mmol/L (21-32); CHLORIDE,CL 107 mmol/L (100-108); CREATININE 0.4 mg/dL (0.6-1.0); EST CRCL DRUG DOSING (CG) 183.75 mL/min; ESTIMATED GFR 139 mL/min (>60); GLUCOSE RANDOM 102 mg/dL (74-106); PHOSPHORUS 4.4 mg/dL (2.5-4.9); POTASSIUM,K 4.1 mmol/L (3.6-5.2); PROTEIN TOTAL,TP 4.4 g/dL (6.4-8.2); SODIUM,NA 135 mmol/L (140-148)
[2023-01-11 05:19] LABS: ANION GAP 4.1 mmol/L (5.0-14.0)
[2023-01-11] MEDS: Acetaminophen 500 MG Tab PO SCH (05:31)
[2023-01-11] MEDS: Pantoprazole 40 MG Tab.CR PO SCH (07:35)
[2023-01-11] MEDS: Bisacodyl 5 MG Tab PO SCH (08:38)
[2023-01-11] MEDS: Celecoxib 200 MG Cap PO SCH (08:38)
[2023-01-11] MEDS: Sennosides/Docusate Sodium 50-8.6 MG Tab PO SCH (08:39)
[2023-01-11 10:11] VITALS: BP 100/59; PULSE 87
== END 2023-01-11 10:50 | disposition home or self-care (01) | DRG 327 ==
LOC: JP.SDS 05:15 → JP.2SS 09:00
PROVIDERS: ADMIT Surgery; ATTEND Surgery
PROC: 0D160ZB Bypass Stomach to Ileum, Open Approach (ICD-10-PCS; principal; 2023-01-02)
PROC: 0WUF0JZ Supplement Abdominal Wall with Synthetic Substitute, Open Approach (ICD-10-PCS; 2023-01-02)
PROC: 0DB80ZZ Excision of Small Intestine, Open Approach (ICD-10-PCS; 2023-01-02)
PROC: 0DBP0ZZ Excision of Rectum, Open Approach (ICD-10-PCS; 2023-01-02)
PROC: 3E0M05Z Introduction of Adhesion Barrier into Peritoneal Cavity, Open Approach (ICD-10-PCS; 2023-01-02)
PROC: 0T9B70Z Drainage of Bladder with Drainage Device, Via Natural or Artificial Opening (ICD-10-PCS; 2023-01-02)
DX: K56.600 Partial intestinal obstruction, unspecified as to cause (principal); E46 Unspecified protein-calorie malnutrition; K43.0 Incisional hernia with obstruction, without gangrene; J45.909 Unspecified asthma, uncomplicated; E66.9 Obesity, unspecified; Z88.1 Allergy status to other antibiotic agents; Z90.49 Acquired absence of other specified parts of digestive tract; Z90.710 Acquired absence of both cervix and uterus; Z98.890 Other specified postprocedural states; Z79.899 Other long term (current) drug therapy; Z98.84 Bariatric surgery status; Z68.26 Body mass index [BMI] 26.0-26.9, adult
CPT/HCPCS: 36415; 74019; 74240; 74240-26; 76000; 80053; 82728; 83735; 84100; 85025; 85027; 88302; 88307; 94640; A9270-GY; C1776; C9113; J0131; J0171; J0330; J0456; J0690; J0694; J1100; J1170; J1200; J1642; J2001; J2020; J2185; J2250; J2405; J2704; J2710; J2765; J2795; J3010; J3410; J3411; J3420; J3475; J3490; J7120; J7121; J7620; Q9967

== ENCOUNTER 2023-01-19 05:30 | Day surgery (SDC) | payer MEDICAID ==
[2023-01-19] MEDS: Dextrose 5%-Lactated Ringers 1,000 ML IV SCH ×2 (06:40→11:59)
[2023-01-19] MEDS ORDERED: Neomycin/Polymyxin B 1 ML, Sodium Chloride 0.9% 500 ML ONE ×2 (07:00)
[2023-01-19] MEDS ORDERED: Propofol 200 MG/20 ML SDV ONE ×2 (07:18→08:50)
[2023-01-19] MEDS ORDERED: Midazolam 1 MG/ML 2 ML SDV ONE (07:18)
[2023-01-19] MEDS ORDERED: fentaNYL 100 MCG/2 ML SDV ONE (07:18)
[2023-01-19] MEDS ORDERED: Ertapenem 1 GM in Sodium Chloride 0.9% 100 ML IV ONE (07:30)
[2023-01-19] MEDS ORDERED: Cyclobenzaprine 10 MG Tab PO PRN (10:09)
[2023-01-19] MEDS ORDERED: Labetalol 20 MG/4 ML Syringe IVPUSH PRN (10:15)
[2023-01-19] MEDS ORDERED: Morphine 4 MG/ML Syringe IVPUSH PRN (10:15)
[2023-01-19] MEDS ORDERED: Albuterol/Ipratropium 3.0-0.5 MG/3 ML Neb Soln INH PRN (10:15)
[2023-01-19] MEDS ORDERED: Acetaminophen 500 MG Tab PO PRN (10:15)
[2023-01-19] MEDS ORDERED: Morphine 2 MG/ML SYRINGE IVPUSH PRN (10:15)
[2023-01-19] MEDS ORDERED: Metoclopramide 10 MG/2 ML SDV IVPUSH PRN (10:15)
[2023-01-19] MEDS ORDERED: Ondansetron 4 MG/2 ML SDV IVPUSH PRN (10:15)
[2023-01-19] MEDS ORDERED: hydrOXYzine HCL 100 MG/2 ML SDV IM PRN (10:15)
[2023-01-19] MEDS ORDERED: diphenhydrAMINE 50 MG/ML SDV IVPUSH PRN (10:15)
[2023-01-19] MEDS ORDERED: HYDROmorphone 2 MG Tab PO PRN (10:20)
[2023-01-19] MEDS: Albuterol/Ipratropium 3.0-0.5 MG/3 ML Neb Soln INH SCH ×3 (11:28→21:14)
[2023-01-19] MEDS: Pantoprazole 40 MG Vial IVPUSH SCH (11:51)
[2023-01-19] MEDS: Acetaminophen 500 MG Tab PO SCH ×2 (14:14→21:14)
[2023-01-19] MEDS ORDERED: MVI, Adult with Vitamin K 10 ML, Thiamine 200 MG, Zinc/Copper/Manganese/Selenium 1 ML i... IV SCH ×4 (16:00)
[2023-01-19] MEDS ORDERED: Amitriptyline 25 MG Tab PO SCH (21:00)
[2023-01-19] MEDS: Celecoxib 200 MG Cap PO SCH (21:13)
[2023-01-19] MEDS: Azithromycin 250 MG Tab PO SCH (21:14)
[2023-01-20] MEDS: Dextrose 5%-Lactated Ringers 1,000 ML IV SCH (03:12)
[2023-01-20 04:58] LABS: BASOPHILS ABSOLUTE AUTO 0.03 K/uL (0.00-0.10); BASOPHILS PERCENT AUTO 0.7 % (0.1-1.3); EOSINOPHILS ABSOLUTE AUTO 0.13 K/uL (0.00-0.40); EOSINOPHILS PERCENT AUTO 3.1 % (0.0-5.4); HEMATOCRIT 32.8 % (34.3-46.0); HEMOGLOBIN 11.3 g/dL (11.2-15.5); IMMATURE GRAN PERCENT AUTO 0.2 % (0.0-0.7); LYMPHOCYTES ABSOLUTE AUTO 1.63 K/uL (0.8-3.3); LYMPHOCYTES PERCENT AUTO 39.2 % (11.4-47.7); MEAN CORPUSCULAR HEMOGLOBIN 30.1 pg (31.6-35.5); MEAN CORPUSCULAR HGB CONC 34.5 g/dL (31.6-35.5); MEAN CORPUSCULAR VOLUME 87.2 fL (81.4-99.0); MONOCYTES ABSOLUTE AUTO 0.38 K/uL (0.20-0.90); MONOCYTES PERCENT AUTO 9.1 % (3.3-12.6); NEUTROPHILS ABSOLUTE AUTO 1.98 K/uL (1.0-7.6); NEUTROPHILS PERCENT AUTO 47.7 % (40.0-78.1); PLATELET COUNT,PLT 269 K/uL (130-375); RED BLOOD CELL COUNT 3.76 M/uL (3.77-5.24); WHITE BLOOD CELL COUNT,WBC 4.2 K/uL (3.2-11.0)
[2023-01-20 05:11] LABS: IMMATURE GRAN ABSOLUTE AUTO 0.01 K/uL (0.00-0.23)
[2023-01-20 05:18] LABS: ALANINE AMINOTRANSFERASE,ALT 125 U/L (12-78); ALKALINE PHOSPHATASE 116 U/L (46-116); ASPARTATE AMNIOTRANSFERASE,AST 54 U/L (15-37); BILIRUBIN TOTAL 0.5 mg/dL (0.2-1.0); BLOOD UREA NITROGEN,BUN 3 mg/dL (7-18); CALCIUM 8.4 mg/dL (8.5-10.1); CARBON DIOXIDE,CO2 29 mmol/L (21-32); CHLORIDE,CL 105 mmol/L (100-108); CREATININE 0.6 mg/dL (0.6-1.0); EST CRCL DRUG DOSING (CG) 121.62 mL/min; ESTIMATED GFR 126 mL/min (>60); GLUCOSE RANDOM 103 mg/dL (74-106); PHOSPHORUS 4.9 mg/dL (2.5-4.9); POTASSIUM,K 3.4 mmol/L (3.6-5.2); PRO B-TYPE NATRIUR PEPT,BNPPRO 39 pg/mL (5-125); PROTEIN TOTAL,TP 6.1 g/dL (6.4-8.2); SODIUM,NA 141 mmol/L (140-148)
[2023-01-20] MEDS ORDERED: Iopamidol 612 MG/ML 30 ML SDV PO ONE (05:21)
[2023-01-20 05:33] LABS: A/G RATIO 0.9 (1.2-2.2); ALBUMIN 2.9 g/dL (3.4-5.0); ANION GAP 10.4 mmol/L (5.0-14.0)
[2023-01-20 06:13] VITALS: BP 94/51; PULSE 77
[2023-01-20] MEDS: Acetaminophen 500 MG Tab PO SCH (06:13)
[2023-01-20] MEDS: Albuterol/Ipratropium 3.0-0.5 MG/3 ML Neb Soln INH SCH ×2 (07:02→10:08)
[2023-01-20] MEDS: Azithromycin 250 MG Tab PO SCH (10:07)
[2023-01-20] MEDS: Celecoxib 200 MG Cap PO SCH (10:07)
[2023-01-20] MEDS: Pantoprazole 40 MG Vial IVPUSH SCH (10:09)
== END 2023-01-20 11:00 | disposition home or self-care (01) ==
LOC: JP.SDS 05:30 → JP.2SS 09:20 → JP.SDS 01-20 11:00
PROVIDERS: ATTEND Surgery
DX: K91.89 Other postprocedural complications and disorders of digestive system (principal); K56.600 Partial intestinal obstruction, unspecified as to cause; F32.A Depression, unspecified; J45.990 Exercise induced bronchospasm; K21.9 Gastro-esophageal reflux disease without esophagitis; K31.84 Gastroparesis; E66.9 Obesity, unspecified; G43.909 Migraine, unspecified, not intractable, without status migrainosus; Z98.0 Intestinal bypass and anastomosis status; Z90.49 Acquired absence of other specified parts of digestive tract; Z79.899 Other long term (current) drug therapy; Z88.0 Allergy status to penicillin
CPT/HCPCS: 36415; 45347; 74240; 76000; 80053; 83735; 83880; 84100; 85025; A9270; C1874; C9113; J1335; J1642; J2250; J2704; J3010; J3411; J3490; J7040; J7121; Q9967

== ENCOUNTER 2023-02-23 23:42 | Emergency (ER) | payer MEDICAID ==
[2023-02-24 00:41] VITALS: BP 102/68; PULSE 76
== END 2023-02-24 02:03 | disposition home or self-care (01) ==
LOC: JP.ED 23:42
DX: R10.84 Generalized abdominal pain (principal); E66.9 Obesity, unspecified; Z88.0 Allergy status to penicillin; Z88.5 Allergy status to narcotic agent
CPT/HCPCS: 99283

== ENCOUNTER 2023-03-08 07:09 | Day surgery (SDC) | payer MEDICAID ==
[~2023-03-08 07:09] MED LIST changes: -fentaNYL 100 MCG/2 ML SDV ONE; +fentaNYL 50 MCG/ML SDV ONE
[2023-03-08] MEDS ORDERED: Bupivacaine 0.5% 50 ML MDV ONE (07:14)
[2023-03-08] MEDS ORDERED: Lidocaine 1% with EPINEPHrine 1:100,000 50 ML MDV ONE (07:15)
[2023-03-08] MEDS ORDERED: Dextrose 5%-Lactated Ringers 1,000 ML IV SCH (07:45)
[2023-03-08] MEDS ORDERED: Propofol 200 MG/20 ML SDV ONE (10:23)
[2023-03-08] MEDS ORDERED: fentaNYL 50 MCG/ML SDV ONE (10:26)
[2023-03-08 11:45] VITALS: BP 89/56; PULSE 40
== END 2023-03-08 12:10 | disposition home or self-care (01) ==
LOC: JP.SDS 07:09
PROVIDERS: ATTEND Surgery
DX: K91.89 Other postprocedural complications and disorders of digestive system (principal); K56.600 Partial intestinal obstruction, unspecified as to cause; Z45.2 Encounter for adjustment and management of vascular access device; F32.A Depression, unspecified; K90.9 Intestinal malabsorption, unspecified; E66.9 Obesity, unspecified; Z88.0 Allergy status to penicillin; Z88.5 Allergy status to narcotic agent; Z68.24 Body mass index [BMI] 24.0-24.9, adult
CPT/HCPCS: 36589; 45347; 76000; C1874; J2250; J2704; J3010; J3490

== ENCOUNTER 2024-03-20 23:56 | Emergency (ER) | payer BC, OTHER ==
[2024-03-21 00:14] VITALS: BP 141/92; PULSE 117
[2024-03-21] MEDS: Ketorolac 30 MG/ML SDV IVPUSH ONE (01:19)
[2024-03-21] MEDS: droPERidol 5 MG/2 ML SDV IVPUSH ONE (01:21)
[2024-03-21 01:28] LABS: BASOPHILS ABSOLUTE AUTO 0.04 K/uL (0.00-0.10); BASOPHILS PERCENT AUTO 0.5 % (0.1-1.3); EOSINOPHILS ABSOLUTE AUTO 0.03 K/uL (0.00-0.40); EOSINOPHILS PERCENT AUTO 0.4 % (0.0-5.4); HEMATOCRIT 37.2 % (34.3-46.0); IMMATURE GRAN PERCENT AUTO 0.1 % (0.0-0.7); LYMPHOCYTES ABSOLUTE AUTO 1.11 K/uL (0.8-3.3); LYMPHOCYTES PERCENT AUTO 13.5 % (11.4-47.7); MEAN CORPUSCULAR HEMOGLOBIN 30.6 pg (31.6-35.5); MEAN CORPUSCULAR HGB CONC 34.9 g/dL (31.6-35.5); MEAN CORPUSCULAR VOLUME 87.5 fL (81.4-99.0); MONOCYTES ABSOLUTE AUTO 0.68 K/uL (0.20-0.90); MONOCYTES PERCENT AUTO 8.3 % (3.3-12.6); NEUTROPHILS ABSOLUTE AUTO 6.36 K/uL (1.0-7.6); NEUTROPHILS PERCENT AUTO 77.2 % (40.0-78.1); PLATELET COUNT,PLT 209 K/uL (130-375); RED BLOOD CELL COUNT 4.25 M/uL (3.77-5.24); WHITE BLOOD CELL COUNT,WBC 8.2 K/uL (3.2-11.0)
[2024-03-21 01:44] LABS: A/G RATIO 1.2 (1.2-2.2); ALANINE AMINOTRANSFERASE,ALT 23 U/L (12-78); ALBUMIN 3.7 g/dL (3.4-5.0); ALKALINE PHOSPHATASE 66 U/L (46-116); ANION GAP 9.3 mmol/L (5.0-14.0); ASPARTATE AMNIOTRANSFERASE,AST 20 U/L (15-37); BILIRUBIN TOTAL 0.5 mg/dL (0.2-1.0); BLOOD UREA NITROGEN,BUN 8 mg/dL (7-18); CALCIUM 8.9 mg/dL (8.5-10.1); CARBON DIOXIDE,CO2 25 mmol/L (21-32); CHLORIDE,CL 106 mmol/L (100-108); CREATININE 0.8 mg/dL (0.6-1.0); ESTIMATED GFR 103 mL/min (>60); GLUCOSE RANDOM 117 mg/dL (74-106); POTASSIUM,K 4.2 mmol/L (3.6-5.2); PROTEIN TOTAL,TP 6.9 g/dL (6.4-8.2); SODIUM,NA 140 mmol/L (140-148)
[2024-03-21 01:45] LABS: IMMATURE GRAN ABSOLUTE AUTO 0.01 K/uL (0.00-0.23)
== END 2024-03-21 02:16 | disposition home or self-care (01) ==
LOC: JP.ED 23:56
DX: K52.9 Noninfective gastroenteritis and colitis, unspecified (principal); J45.909 Unspecified asthma, uncomplicated; E66.9 Obesity, unspecified; Z86.16 Personal history of COVID-19; Z90.49 Acquired absence of other specified parts of digestive tract; Z90.710 Acquired absence of both cervix and uterus; Z79.899 Other long term (current) drug therapy; Z88.0 Allergy status to penicillin; Z88.2 Allergy status to sulfonamides
CPT/HCPCS: 36415; 80053; 85025; 96374; 96375; 99284; J1790; J1885